=== PATIENT | female | born 1990 | race Caucasian/White ===

== ENCOUNTER → 2018-06-08 12:07 | Outpatient (CLI) | payer OTHER, MEDICAID, SELFPAY ==
[2018-06-08 12:40] LABS: Appearance Urine UA CLEAR; Bilirubin Urine UA NEGATIVE (NEGATIVE); Color Urine UA YELLOW; Glucose Urine UA NEGATIVE (Normal); Ketones Urine UA NEGATIVE (NEGATIVE); Leukocyte Esterase Urine UA NEGATIVE (NEGATIVE); Nitrite Urine UA NEGATIVE (Negative); Occult Blood Urine UA NEGATIVE (Negative); Protein Urine UA NEGATIVE (Negative); Specific Gravity Urine UA <=1.005 (1.000-1.035); Urobilinogen Urine UA 0.2 E.U./dL (0.2); pH Urine UA 6.5 (4.5-8.0)
[2018-06-08 12:42] LABS: Add Manual Diff / Slide Review NO; Basophils Percent Auto 0.6 % (0-2); Eosinophils Percent Auto 0.9 % (2-4); Hematocrit 38.3 % (36-46); Hemoglobin 13.2 g/dL (12.0-16.0); Lymphocytes Percent Auto 34.7 % (25-40); Mean Corpuscular HGB Conc 34.5 % (30-36); Mean Corpuscular Volume 87.2 fL (80-100); Monocytes Percent Auto 9.6 % (3-14); Neutrophils Absolute Auto 2400 /uL (1500-7000); Neutrophils Percent Auto 54.2 % (50-75); Platelet Count 215 X10^3/uL (150-400); Red Blood Cell Count 4.39 X10^6/uL (4.0-5.2); Red Cell Distribution Width 13.3 % (11.6-14.8); White Blood Cell Count 4.5 X10^3/uL (4.5-11.0)
[2018-06-08 13:22] LABS: Thyroid Stimulating Hormone 3.44 uIU/mL (0.47-4.68)
[2018-06-08 15:29] LABS: Hepatitis B Surface Antigen NEGATIVE s/c (NEGATIVE); Rubella Antibody IgG 36.5 IU/mL (>15)
[2018-06-08 15:45] LABS: HIV 1 and 2 Antibody NEGATIVE (NEGATIVE); Hep C Virus Ab w/Reflex Quant NEGATIVE s/c (NEGATIVE)
[2018-06-10 10:09] LABS: RPR Screen Nonreactive (Nonreactive)
[2018-06-10 13:45] LABS: HSV 2 IGG AB < 0.90 index (< 0.90)
[2018-06-11 14:47] LABS: Varicella IgG Antibody < 135.00 Index (< 135.00)
== END ==
PROVIDERS: Family Provider Family Medicine; PCP Family Medicine; Visit Provider Specialist
DX: Z34.81 Encounter for supervision of other normal pregnancy, first trimester (principal); E03.9 Hypothyroidism, unspecified
CPT/HCPCS: 36415; 80055; 81003; 84443; 86695; 86696; 86703; 86787; 86803; 86850; 86900; 86901; 87077; 87086

== ENCOUNTER 2018-07-05 20:20 | Emergency (ER) | payer OTHER, MEDICAID, SELFPAY ==
[2018-07-05 20:20] VITALS: TEMP 36.8
[2018-07-05 20:38] VITALS: BP 115/74; PULSE 97; RESP 19; O2SAT 100
--- NOTE | 2018-07-05 20:55 | ED_ITS ---
HPI - Chest Pain General Chief Complaint: Chest Pain Stated Complaint: CONGESTION, CHEST PAIN Time Seen by Provider: 07/05/18 20:40 Source: patient Limitations: no limitations History of Present Illness HPI narrative: Patient is a 28-year-old female who presents with of shortness of breath is ongoing for the last 2 weeks. She has chest pain only when she breathes. She has had coughing and body aches. She is currently 10 weeks . His she has had 1 episode of spotting a couple days ago no really abdominal pain or further spotting. She denies any abdominal pain nausea or vomiting. Her daughter has been sick as well. She did not get her influenza shot. MD complaint: chest pain Related Data Home Medications Medication Instructions Recorded Confirmed 1 tab PO DAILY 06/15/18 06/15/18 vitamin,calcium,xygmvbxu-ejyr-owpkm acid tablet Previous Rx's Medication Instructions Recorded levothyroxine 100 mcg tablet 100 mcg PO DAILY #60 tab 02/01/18 Allergies Allergy/AdvReac Type Severity Reaction Status Date / Time No Known Drug Allergies Allergy Unverified 06/15/18 17:45 Review of Systems Review of Systems ROS Unobtainable: All systems reviewed & are unremarkable except as noted in HPI and below Constitutional Reports body ache(s), Reports chills and Reports fever(s) Cardiovascular Reports chest pain ( Only when she coughs), Denies syncope, Denies lightheadedness and Reports dyspnea Respiratory Reports chest congestion, Reports cough, Reports pain with cough and Reports dyspnea Gastrointestinal Gastrointestinal: Denies abdominal pain, Denies change in bowel habits, Denies diarrhea, Denies nausea and Denies vomiting Integumentary/Breasts Denies pruritus, Denies erythema, Denies rash and Denies wounds Neurologic Denies syncope PFS Medical History Hypothyroid (Acute) Family History Father WPW (Edtan-Jkxwnuwtf-Hfype syndrome) Social History Smoking Status: Never smoker Exam Initial Vital Signs Initial Vital Signs: Vital Signs Temperature 98.3 F 07/05/18 20:20 GENERAL: Well-appearing, well-nourished and in no acute distress. HEENT: Head atraumatic,EOMI, pupils reactive, CARDIOVASCULAR: Regular rate and rhythm without murmurs, rubs or gallops. RESPIRATORY: Breath sounds equal bilaterally, no wheezes rales or rhonchi. ABDOMEN: Soft, nontender. Normoactive bowel sounds all 4 quadrants. No guarding or rebound. EXTREMITIES: Normal range of motion, no clubbing or edema. Neurovascularly intact NEUROLOGICAL: Alert and oriented x4.Normal gait and speech. SKIN: Warm, dry, no laceration, no petechiae, no rashes or lesions. Course Orders Ordered: ED Orders 07/05/18 21:03 Influenza A and B by PCR Rapid Stat Vital Signs - 8 hr 07/05/18 20:20 07/05/18 20:38 07/05/18 21:01 Temperature 98.3 F Pulse Rate 97 H 97 H Respiratory Rate 19 27 H Blood Pressure [Left Arm] 115/74 111/71 Pulse Oximetry 100 100 07/05/18 21:14 07/05/18 21:30 Temperature 98.3 F Pulse Rate 97 H 92 H Respiratory Rate 27 H 16 Blood Pressure [Left Arm] 104/68 Pulse Oximetry 100 100 MDM - Chest Pain Lab Data Attestation: I reviewed the patient's lab results. Lab Results 07/05/18 Range/Units 21:03 Influenza A & B (PCR) Negative (Negative) ECG Data Attestation: I personally reviewed and interpreted this ECG as follows: Interpretation: normal sinus rhythm rate 85 incomplete right bundle-branch block no ST changes normal intervals no sign of WPW MDM Narrative Medical decision making narrative: patient was offered albuterol and chest x- ray however at this time declined. This is likely viral in upper respiratory. Lungs are clear I do not suspect any pneumonia. She really appears alert and oriented does not seem septic or toxic. Vitals are within normal limits. At this time recommend supportive care only. Discharge Plan Departure Patient Disposition: Home Clinical Impression: Upper respiratory infection Discharge Date/Time: 07/05/18 21:51 Interventions: ED Discharge Assessment Last Done: 07/05/18 21:51 Instructions: DI for Viral Upper Respiratory Infection -- Adult Activity Restrictions/Additional Instructions: *You have been diagnosed with upper respiratory infection *What to do: influenza is negative at this time, recommend Neti pot, hydrate, rest Tylenol as needed *Continue to take medications as directed *Follow up with your primary care provider in 2-3 days *Return to ER if you should have increased shortness of breath, chest pain, increased abdominal pain or vaginal bleeding or any new, worsening or concerning symptoms Prescriptions: No Action levothyroxine [Synthroid] 100 mcg tablet 100 mcg PO DAILY Qty: 60 RF: 1 prenat.vits,jillian,twq-whnf-qteil tablet 1 tab PO DAILY RF: 0 Referrals: Saumya Dickinson MD [Physician] - Farzad Ruvalcaba MD [Primary Care Provider] -
[2018-07-05 21:01] VITALS: BP 111/71; PULSE 97; RESP 27; O2SAT 100
[2018-07-05 21:14] VITALS: PULSE 97; RESP 27; TEMP 36.8; O2SAT 100
--- NOTE | 2018-07-05 21:19 | PC.NURSE ---
chest congestion and cough for two weeks and chest pain with coughing today, no pain at present. Pt 10wks denies vaginal bleeding.
[2018-07-05 21:28] LABS: Influenza A and B by PCR Rapid Negative (Negative)
[2018-07-05 21:30] VITALS: BP 104/68; PULSE 92; RESP 16; O2SAT 100
== END 2018-07-05 21:51 | disposition home or self-care (01) ==
PROVIDERS: Emergency Provider Emergency Medicine; Family Provider Family Medicine; PCP Family Medicine
DX: J06.9 Acute upper respiratory infection, unspecified (principal)
CPT/HCPCS: 87400; 93005; 93010; 99283; 99284

== ENCOUNTER → 2018-08-17 15:29 | Outpatient (CLI) | payer OTHER, MEDICAID, SELFPAY ==
[2018-08-17 16:55] LABS: Free T4, Direct Thyroxine 0.93 ng/dL (0.78-2.19)
[2018-08-17 17:09] LABS: Thyroid Stimulating Hormone 1.84 uIU/mL (0.47-4.68)
[2018-08-22 11:01] LABS: AFP, Serum 39.6 ng/mL; Calc Gestational Age 15.9; Cigarette Smoker N; Donated Egg NOT GIVEN; Donor Egg Age NOT GIVEN; Estriol, Free 0.95 ng/mL; Inhibin A, Dimeric 107 pg/mL; Maternal Ethnicity NOT GIVEN; Maternal Weight 163 lbs; Number of Fetuses NOT GIVEN; Previous Pregnancy Down Syndro N; hCG, MoM 0.72; hCG, Serum 24.4 IU/mL
== END ==
PROVIDERS: PCP Family Medicine; Visit Provider Specialist
DX: Z34.82 Encounter for supervision of other normal pregnancy, second trimester (principal); Z3A.16 16 weeks gestation of pregnancy; E06.9 Thyroiditis, unspecified
CPT/HCPCS: 36415; 82105; 82677; 84439; 84443; 84702; 86336

== ENCOUNTER → 2018-09-16 15:05 | Outpatient (CLI) | payer OTHER, MEDICAID, SELFPAY ==
--- NOTE | 2018-09-16 15:11 | DI.US.S_ITS ---
PROCEDURE: US OB >= 14 WEEKS FETUS INDICATIONS: anatomic survey OUTSIDE/PRIOR DATING DATA: Last menstrual period (LMP): None. LMP-based estimated date of delivery (RENETTA): None. First dating scan (date and location): 06/22/18. Estimated date of delivery (RENETTA) from first dating scan: 02/01/19. TECHNIQUE: Real-time scanning was performed of the fetus, with image documentation and biometric measurements. Endovaginal scanning: Not performed COMPARISON: [facility], , OB >= 14 WEEKS FETUS, 06/22/2018, 14:53. FINDINGS: General: A single living intrauterine gestation is present. Presentation: Vertex Placenta: Placental position is anterior, without previa. The Amniotic fluid index: 15.3 cm, normal range is 5-24 cm. heart rate: 150 beats per minute. Maternal cervical canal: 3.3 cm long. Normal lower limit is 2.5 cm. biometrics: Biparietal diameter: 5.0 cm, 21 week 2 days Head circumference: 19.2 cm, 21 weeks 3 days Abdominal circumference: 17.0 cm, 22 weeks zero days Femur length: 3.5 cm, 21 weeks one day Estimated gestational age from initial scan: 20 week 2 day Composite gestational age from present scan: 21 week 3 days Estimated weight and percentile: 432 g, 97% Measurement variability for biometric dating: +/- 7 days from 14 weeks to 15 weeks 6 days gestation, +/- 10 days from 16 weeks to 21 weeks 6 days gestation, +/- 2 weeks from 22 weeks to 27 weeks 6 days gestation, +/- 3 weeks for 28 weeks gestation or later. weight reference: 4500 g or EFW >90/95% is considered macrosomia or large for gestational age. EFW <10% is small for gestational age. EFW 5% or less is considered intra-uterine growth restriction. Anatomic survey: Neuro: Ventricles are non-dilated at less than 10 mm. Cisterna magna is normal at 3-11 mm. Cerebellum is normal in size and morphology. Nuchal skin fold: Normal at less than 6 mm between 14-21 weeks gestational age. Face: Nose and lips, facial profile are normal. Spine: No evidence for spina bifida. Heart: 4-chambered heart is present, with normal ventricular outflow tracts. Diaphragm: Diaphragm is intact. Stomach: Left-sided stomach is present. Kidneys: No hydronephrosis. Normal is less than 5 mm in 2nd trimester, less than 7 mm in 3rd trimester. Cord: 3-vessel cord has orthotopic insertion. Bladder: Normal in size. Extremities: All 4 extremities identified. IMPRESSION: 1. Single live intrauterine with fetus in vertex presentation. heart rate is 150 beats per minute. Estimated gestational age based on current study is 21 weeks 3 days. Estimated gestational age based on the previous study as 20 week 2 day. 2. Normal anatomic survey. Dictated by: Huber Albarado M.D. on 09/16/2018 at 16:38 Approved by: Huber Albarado M.D. on 09/16/2018 at 16:41
== END ==
PROVIDERS: PCP Family Medicine; Visit Provider Family Medicine
DX: Z34.82 Encounter for supervision of other normal pregnancy, second trimester (principal); Z3A.21 21 weeks gestation of pregnancy
CPT/HCPCS: 76811

== ENCOUNTER → 2018-10-20 16:40 | Outpatient (CLI) | payer OTHER, MEDICAID, SELFPAY ==
[2018-10-20 18:23] LABS: Hemoglobin 10.6 g/dL (12.0-16.0)
[2018-10-24 07:40] LABS: GTT (PREG) 1 Hour PP 50gm Dose 104 mg/dL (76-139)
== END ==
PROVIDERS: PCP Family Medicine; Visit Provider Specialist
DX: Z34.02 Encounter for supervision of normal first pregnancy, second trimester (principal); Z3A.26 26 weeks gestation of pregnancy
CPT/HCPCS: 36415; 82950; 85014; 85018

== ENCOUNTER → 2018-11-10 11:36 | Outpatient (CLI) | payer OTHER, MEDICAID, SELFPAY | PROVIDERS: PCP Family Medicine; Visit Provider Specialist | DX: O26.899 Other specified pregnancy related conditions, unspecified trimester (principal); Z67.91 Unspecified blood type, Rh negative | CPT/HCPCS: 36415; 86850 ==

== ENCOUNTER → 2019-01-13 15:59 | Outpatient (CLI) | payer OTHER, MEDICAID, SELFPAY ==
[2019-01-14 13:06] LABS: Strep Grp B PCR NEG for Grp B Strep
== END ==
PROVIDERS: PCP Family Medicine; Visit Provider Specialist
DX: Z34.83 Encounter for supervision of other normal pregnancy, third trimester (principal); Z3A.37 37 weeks gestation of pregnancy
CPT/HCPCS: 87653

== ENCOUNTER 2019-01-27 08:50 | Outpatient (CLI) | payer OTHER, MEDICAID, SELFPAY | END 2019-01-27 09:40 | disposition home or self-care (01) | LOC: LABOR 09:50 → OB 01-31 09:32 | PROVIDERS: PCP Family Medicine; Visit Provider Specialist | DX: O36.8130 Decreased fetal movements, third trimester, not applicable or unspecified (principal); Z3A.38 38 weeks gestation of pregnancy | CPT/HCPCS: 59025; G0378; G0379 ==

== ENCOUNTER 2019-01-27 11:21 | Inpatient (IN) | payer OTHER, MEDICAID, SELFPAY ==
--- NOTE | 2019-01-27 11:50 | PM.OBHP.1 ---
OB HPI Date/Time Date of admission: 01/27/19 Date Patient Seen: 01/27/19 Time Patient Seen: 11:53 History of Present Condition Chief complaint: Induction : 4 Para: 2 Estimated Date of Delivery: 02/02/19 Estimated Gestational Age (weeks): 39 Narrative: Jenny Leblanc is a 28 year old female admitted for induction for LGA at term Indications Indication for induction OB: other (LGA infant at term with favorable cervix) History of Present care: good care, initiated at week # (7), number of visits (13) and pounds weight gain (34) Dating criteria: LMP confirmed by 1st trimester US Ultrasounds: normal mid trimester US Obstetrical complications: none Medical complications: none Preadmission Labs Blood type: A (-) negative -: Antibody screen: negative, GBS status: negative, HBsAG: negative, HIV: negative, HSV 1: positive, HSV 2: negative and RPR/VDLR: negative -: Chlamydia screen: not detected and Gonorrhea screen: not detected -: Rubella: immune and Varicella: not immune HCAB: negative PAP: Normal Quad screen: Normal 1 hr GTT: 104 Prior (ies) History: 07/05/14 41 weeks female 9 lb 6 oz 11/05/2015 40 weeks female 8 lb Evaluation Evaluation Baseline heart rate: 130 Variability: Moderate (11-25) monitor accelerations: Present monitor decelerations: Absent Contraction Frequency (minutes): 0 Category of Tracing: I Cervical dilation (cm): 3 Cervical effacement (%): 80 station: -2 [facility] Medical History (Updated 01/27/19 @ 11:57 by Saumya Dickinson MD) Migraines (Chronic) Hypothyroid (Acute) Surgical History (Updated 01/27/19 @ 11:57 by Saumya Dickinson MD) Hx of appendectomy (Inactive) Family History (Updated 07/06/18 @ 02:25 by Any Chawla DO) Father WPW (Yzbrz-Dktapcobu-Etgdp syndrome) Social History Smoking Status: Never smoker Social History Smoking Status: Never smoker Meds Home Medications Medication Instructions Recorded Confirmed Type 1 tab PO DAILY 06/15/18 07/09/18 History vitamin,calcium,ajqidqot-gtmg-vqxaf acid tablet Double Electric Breast Pump #1 each 11/23/18 11/23/18 Rx levothyroxine 100 mcg tablet 100 mcg PO DAILY #60 tab 12/22/18 Rx Allergies Allergy/AdvReac Type Severity Reaction Status Date / Time No Known Drug Allergies Allergy Verified 07/09/18 12:10 Review of Systems Review of Systems Patient has had good movement. No rupture membranes. No signs or symptoms of preeclampsia. All systems reviewed & are unremarkable except as noted in HPI and below Exam Vital Signs (past 8 hours): Blood pressure 110/62, pulse of 84 Narrative Exam Narrative: HEENT exam within normal limits. Lungs are clear to auscultation and percussion. Heart is regular rate and rhythm no S3-S4 or murmurs. Abdomen is gravid. Extremities with trace edema and nontender. Objective Labs Result Diagrams: 01/27/19 11:50 Assessment and Plan Assessment and Plan Assessment and Plan narrative: 39 week gestation with LGA infant and favorable cervix for a AROM and Pitocin induction.
--- NOTE | 2019-01-27 11:58 | P.HPOB_ITS ---
OB HPI Date/Time Date of admission: 01/27/19 Date Patient Seen: 01/27/19 Time Patient Seen: 11:53 History of Present Condition Chief complaint: Induction : 4 Para: 2 Estimated Date of Delivery: 02/02/19 Estimated Gestational Age (weeks): 39 Narrative: Jenny Leblanc is a 28 year old female admitted for induction for LGA at term Indications Indication for induction OB: other (LGA infant at term with favorable cervix) History of Present care: good care, initiated at week # (7), number of visits (13) and pounds weight gain (34) Dating criteria: LMP confirmed by 1st trimester US Ultrasounds: normal mid trimester US Obstetrical complications: none Medical complications: none Preadmission Labs Blood type: A (-) negative -: Antibody screen: negative, GBS status: negative, HBsAG: negative, HIV: negative, HSV 1: positive, HSV 2: negative and RPR/VDLR: negative -: Chlamydia screen: not detected and Gonorrhea screen: not detected -: Rubella: immune and Varicella: not immune HCAB: negative PAP: Normal Quad screen: Normal 1 hr GTT: 104 Prior (ies) History: 07/05/14 41 weeks female 9 lb 6 oz 11/05/2015 40 weeks female 8 lb Evaluation Evaluation Baseline heart rate: 130 Variability: Moderate (11-25) monitor accelerations: Present monitor decelerations: Absent Contraction Frequency (minutes): 0 Category of Tracing: I Cervical dilation (cm): 3 Cervical effacement (%): 80 station: -2 [facility] [place] Medical History (Updated 01/27/19 @ 11:57 by Saumya Dickinson MD) Migraines (Chronic) Hypothyroid (Acute) Surgical History (Updated 01/27/19 @ 11:57 by Saumya Dickinson MD) Hx of appendectomy (Inactive) Family History (Updated 07/06/18 @ 02:25 by Any Chawla DO) Father WPW (Qkgev-Irfqlklvp-Wuddl syndrome) Social History Smoking Status: Never smoker Social History Smoking Status: Never smoker Meds Home Medications Medication Instructions Recorded Confirmed Type 1 tab PO DAILY 06/15/18 07/09/18 History vitamin,calcium,hxwbyado-dwru-nralz acid tablet Double Electric Breast Pump #1 each 11/23/18 11/23/18 Rx levothyroxine 100 mcg tablet 100 mcg PO DAILY #60 tab 12/22/18 Rx Allergies Allergy/AdvReac Type Severity Reaction Status Date / Time No Known Drug Allergies Allergy Verified 07/09/18 12:10 Review of Systems Review of Systems Patient has had good movement. No rupture membranes. No signs or symptoms of preeclampsia. All systems reviewed & are unremarkable except as noted in HPI and below Exam Vital Signs (past 8 hours): Blood pressure 110/62, pulse of 84 Narrative Exam Narrative: HEENT exam within normal limits. Lungs are clear to auscultation and percussion. Heart is regular rate and rhythm no S3-S4 or murmurs. Abdomen is gravid. Extremities with trace edema and nontender. Objective Labs Result Diagrams: 01/27/19 11:50 Assessment and Plan Assessment and Plan Assessment and Plan narrative: 39 week gestation with LGA infant and favorable cervix for a AROM and Pitocin induction.
[2019-01-27] MEDS: LACTATED RINGERS 1,000 ML 100 ML IV (12:00)
[2019-01-27] MEDS: OXYTOCIN PREMIX 30 UNIT/500 ML PLAST..BAG IV (12:05)
[2019-01-27 12:16] LABS: Add Manual Diff / Slide Review NO; Basophils Absolute Auto 0 /uL (0-100); Basophils Percent Auto 0.4 % (0-2); Eosinophils Absolute Auto 0 /uL (0-450); Eosinophils Percent Auto 0.3 % (2-4); Hematocrit 36.9 % (36-46); Hemoglobin 12.7 g/dL (12.0-16.0); Lymphocytes Absolute Auto 1400 /uL (1100-4500); Lymphocytes Percent Auto 18.1 % (25-40); Mean Corpuscular HGB Conc 34.5 % (30-36); Mean Corpuscular Hemoglobin 31.3 PG (26-34); Mean Corpuscular Volume 90.9 fL (80-100); Monocytes Absolute Auto 600 /uL (0-900); Monocytes Percent Auto 7.9 % (3-14); Neutrophils Absolute Auto 5900 /uL (1500-7000); Neutrophils Percent Auto 73.3 % (50-75); Platelet Count 146 X10^3/uL (150-400); Red Blood Cell Count 4.06 X10^6/uL (4.0-5.2); Red Cell Distribution Width 17.3 % (11.6-14.8)
[2019-01-27 13:09] VITALS: BP 110/62
--- NOTE | 2019-01-27 19:14 | PM.OBPRVD ---
Events: Labor Induction Delivery date: 01/27/19 Induction method: per pitocin protocol Delivery augmentation: rupture of membranes Delivery monitor: external FHT and external uterine Route of delivery: L&D Laceration Description: None Estimated blood loss (mL): 200 Anesthesia type: Epidural Narrative: Patient was admitted for Pitocin and AROM induction for term with LGA baby and favorable cervix. She had Pitocin begun followed by AROM for clear fluid. She received an epidural catheter for pain control. heart tones category 1 to category 2 throughout labor. Patient had a spontaneous vaginal delivery. Infant was placed on maternal abdomen. After the cord stopped pulsating the cord was clamped, cut, and cord bloods obtained. The placenta delivered spontaneously, intact, with 3 vessels. There were no cervical, vaginal, or perineal tears. Both and mother doing well. [place] Baby 1: Infant gender: Male Presentation: vertex position: Right Occiput Anterior Placenta delivery description: Spontaneous cord vessel description: 3 Vessels score (1 min): 9 score (5 min): 9 Plan for aftercare: Routine post vaginal delivery
[2019-01-27] MEDS: IBUPROFEN 600 MG TABLET PO (21:59)
[2019-01-27] MEDS: HYDROCODONE/ACET 5/325 TABLET 2 TAB PO (22:07)
[2019-01-27] MEDS: LANOLIN OINT 7 GM 1 APPLIC TOP (22:48)
[2019-01-28 05:42] LABS: Hematocrit 34.8 % (36-46); Hemoglobin 12.1 g/dL (12.0-16.0)
[2019-01-28] MEDS: IBUPROFEN 600 MG TABLET PO ×3 (06:59→19:03)
[2019-01-28] MEDS: HYDROCODONE/ACET 5/325 TABLET 2 TAB PO ×4 (07:00→20:11)
[2019-01-28] MEDS: LEVOTHYROXINE 100 MCG TABLET PO (09:20)
[2019-01-28] MEDS: DOCUSATE 250 MG CAPSULE PO (09:20)
[2019-01-28] MEDS: RHO(D) IMMUNE GLOBULIN 1,500 UNIT SYRINGE 1500 UNIT IM (09:20)
--- NOTE | 2019-01-28 09:47 | P.PNOB_ITS ---
Subjective - OB Patient comments: pain well controlled baby status: doing well feeding status: exclusively breast feeding Date Patient Seen: 01/28/19 Time Patient Seen: 09:47 Interval history: Patient is day 1. She has moderate crampy pain that is been relieved with Vicodin. Mild lochia. Extremities without edema and nontender. Exam Vital Signs (past 8 hours): Temperature 97.8?, blood pressure 120/77, pulse 70 Narrative Exam Narrative: Abdomen is soft, nontender. Uterus is firm, at U, nontender. Mild lochia. Extremities without edema and nontender. Patient is Rh negative and baby Rh positive so she received RhoGAM. Objective Labs Result Diagrams: 01/28/19 05:25 Labs: Laboratory Results - last 24 hr 01/27/19 01/27/19 01/28/19 11:50 11:50 05:25 WBC 8.0 RBC 4.06 Hgb 12.7 Hct 36.9 MCV 90.9 MCH 31.3 MCHC 34.5 RDW 17.3 H Plt Count 146 L Neut % (Auto) 73.3 Lymph % (Auto) 18.1 L [place] % (Auto) 7.9 Eos % (Auto) 0.3 L Baso % (Auto) 0.4 Neut # (Auto) 5900 Lymph # (Auto) 1400 [place] # (Auto) 600 Eos # (Auto) 0 Baso # (Auto) 0 Blood Type A Negative Antibody Screen Negative Maternal Bleed Negative 01/28/19 05:25 WBC RBC Hgb 12.1 Hct 34.8 L MCV MCH MCHC RDW Plt Count Neut % (Auto) Lymph % (Auto) [place] % (Auto) Eos % (Auto) Baso % (Auto) Neut # (Auto) Lymph # (Auto) [place] # (Auto) Eos # (Auto) Baso # (Auto) Blood Type Antibody Screen Maternal Bleed Assessment & Plan Plan day: 1 plan OB: routine care Time Spent With Patient Total time spent is greater than 50% in coordination of care (as documented) at patient's floor/unit and/or counseling patient: less than 15 minutes
[2019-01-29] MEDS: HYDROCODONE/ACET 5/325 TABLET 2 TAB PO ×4 (00:13→12:23)
[2019-01-29] MEDS: IBUPROFEN 600 MG TABLET PO ×3 (01:01→12:22)
[2019-01-29] MEDS: DOCUSATE 250 MG CAPSULE PO (08:47)
[2019-01-29] MEDS: LEVOTHYROXINE 100 MCG TABLET PO (08:47)
--- NOTE | 2019-01-29 09:14 | PM.OBDS.1 ---
Discharge Providers Date of admission: 01/27/19 11:21 Discharge Date: 01/29/19 Primary care physician: Farzad Ruvalcaba MD Consults: 01/27/19 20:44 Consult to [employer] Routine Comment: Discharge provider: Saumya Dickinson MD Summary Date Patient Seen: 01/29/19 Time Patient Seen: 09:15 Procedures: Pitocin induction, epidural catheter, vaginal delivery. Hospital Course: Patient was admitted for induction for LGA and favorable cervix. She was started on Pitocin and was AROM for clear fluid. She received an epidural catheter for pain control. She had a spontaneous vaginal delivery without a tear. Patient and baby did well . She is breast-feeding with some soreness. She is urinating and ambulating well. Patient's blood pressure is 113/64, pulse 73, temperature 97.8? Patient's abdomen is soft, nontender. Uterus is firm, at U, nontender. Mild lochia. Extremities without edema and nontender. Patient received RhoGAM, she was rubella immune and had received the Tdap in the 3rd trimester. Peripartum Data Infant Delivery Method: Natural Vaginal Laceration description: None Procedures: Pitocin induction, epidural catheter, spontaneous vaginal delivery complications: none [place] 1: Gender: Male Disposition of : home Discharge Diagnosis (1) Vaginal delivery: Status: Acute (2) Hypothyroid: Status: Chronic Status at Discharge Cognitive/behavioral status at discharge: oriented Functional status at discharge: independent ambulation Overall status at discharge: patient is progressing back to baseline Time Spent with Patient Total time spent providing and/or coordinating discharge services: Less than 30 minutes Objective Labs Result Diagrams: 01/28/19 05:25 Discharge Plan Discharge Plan Patient Disposition: Home Discharge Med Rec/Prescriptions Prescriptions: New hydrocodone-acetaminophen 5-325 mg Tablet 1 tab PO Q4HR PRN (Reason: Pain, Severe (7-10)) Qty: 20 RF: 0 ibuprofen 600 mg Tablet 600 mg PO Q6HR PRN (Reason: Pain, Mild (1-3)) Qty: 30 RF: 0 docusate sodium 250 mg Capsule 250 mg PO DAILY Qty: 10 RF: 0 Continued levothyroxine [Synthroid] 100 mcg tablet 100 mcg PO DAILY Qty: 60 RF: 5 prenat.vits,jillian,lep-ayqo-urqol tablet 1 tab PO DAILY RF: 0 Double Electric Breast Pump .ROUTE .MEDSUPPLY Qty: 1 RF: 0 Follow up/Referrals: Saumya Dickinson MD [Physician] - 1 Month Provider Discharge Instructions Diet: Regular Activity: Nothing in vagina for 4 weeks Skin/Wound/Dressing Care Report to your healthcare provider any signs of infection, such as:: chills, fever and increased pain Visit Report/Discharge Packet Stand Alone Forms: Discharge: Care Discharge Data Primary Care Provider: Farzad Ruvalcaba Attending Provider: Saumya Dickinson Admit Date/Time: 01/27/19 11:21
[2019-01-29 10:32] VITALS: BP 110/62; PULSE 73; RESP 17; TEMP 36.6
== END 2019-01-29 13:30 | disposition home or self-care (01) | DRG 807 ==
PROVIDERS: Admitting Provider Specialist; PCP Family Medicine; Visit Provider Specialist
DX: O36.63X0 Maternal care for excessive fetal growth, third trimester, not applicable or unspecified (principal); Z37.0 Single live birth; Z3A.39 39 weeks gestation of pregnancy
CPT/HCPCS: 01967; 36415; 59025; 59050; 59400; 85014; 85018; 85025; 85461; 86850; 86900; 86901; G0378; G0379; J2590; J2790

== ENCOUNTER 2019-06-07 17:45 | Emergency (ER) | payer OTHER, SELFPAY ==
[2019-06-07 17:51] VITALS: BP 139/89; PULSE 77; RESP 16; O2SAT 99
[2019-06-07 18:10] LABS: Add Manual Diff / Slide Review NO; Basophils Absolute Auto 0 /uL (0-100); Basophils Percent Auto 0.8 % (0-2); Eosinophils Absolute Auto 300 /uL (0-450); Eosinophils Percent Auto 5.2 % (2-4); Hematocrit 39.8 % (36-46); Hemoglobin 13.7 g/dL (12.0-16.0); Lymphocytes Absolute Auto 1900 /uL (1100-4500); Lymphocytes Percent Auto 30.9 % (25-40); Mean Corpuscular HGB Conc 34.5 % (30-36); Mean Corpuscular Hemoglobin 30.8 PG (26-34); Monocytes Absolute Auto 400 /uL (0-900); Monocytes Percent Auto 6.5 % (3-14); Neutrophils Absolute Auto 3400 /uL (1500-7000); Neutrophils Percent Auto 56.6 % (50-75); Platelet Count 222 X10^3/uL (150-400); Red Blood Cell Count 4.47 X10^6/uL (4.0-5.2); Red Cell Distribution Width 12.7 % (11.6-14.8)
--- NOTE | 2019-06-07 18:10 | DI.US.S_ITS ---
PROCEDURE: US ABDOMEN LIMITED INDICATIONS: RUQ PAIN TECHNIQUE: Real-time focused scanning was performed of the abdomen, with image documentation. COMPARISON: None. FINDINGS: Gallbladder is sonographically normal. No gallstones. No gallbladder wall thickening. No pericholecystic fluid. No sonographic Phillips sign. Biliary tree is nondilated. Common bile duct measures 2.7 mm. Pancreas is sonographically normal. IMPRESSION: No sonographic evidence of cholelithiasis or cholecystitis. If there is continued clinical concern for cholecystitis, then nuclear medicine HIDA scan should be considered for further evaluation. Dictated by: Alena Manuel MD, PhD on 06/07/2019 at 20:36 Approved by: Alena Manuel MD, PhD on 06/07/2019 at 20:38
[2019-06-07] MEDS: SODIUM CHLORIDE 0.9% 1,000 ML 1000 ML IV (18:14)
[2019-06-07] MEDS: ONDANSETRON 4 MG/2 ML INJ IV (18:14)
[2019-06-07 18:18] LABS: Alanine Aminotransferase 13 IU/L (<35); Albumin 4.7 g/dL (3.5-5.0); Albumin Globulin Ratio 1.5 (1.0-2.8); Alkaline Phosphatase 60 U/L (38-126); Amylase 62 U/L (30-110); Aspartate Aminotransferase 21 IU/L (14-36); BUN Creatinine Ratio 18.6 (6-22); Bilirubin Total 0.4 mg/dL (0.2-1.3); Blood Urea Nitrogen 13 mg/dL (7-17); Calcium 10.1 mg/dL (8.4-10.2); Carbon Dioxide 28 mmol/L (22-32); Chloride 100 mmol/L (98-107); Estimated Glomerular Filt Rate > 60.0 mL/min (>60); Globulin 3.2 g/dL (1.7-4.1); Glucose 106 mg/dL (70-100); HEMOLYSIS < 15 (0-50); Lipase 90 U/L (23-300); Potassium 3.7 mmol/L (3.4-5.1); Sodium 138 mmol/L (137-145); Total Protein 7.9 g/dL (6.3-8.2)
--- NOTE | 2019-06-07 20:14 | ED_ITS ---
HPI - Abdominal Pain <ANTON Victoria- - Last Filed: 06/07/19 20:55> General Chief Complaint: Abdominal Pain Stated Complaint: upper middle abdominal pain Time Seen by Provider: 06/07/19 17:48 Source: patient Mode of arrival: Ambulatory Limitations: no limitations History of Present Illness HPI narrative: The patient is a 29-year-old female nonsmoker with history of hypothyroidism who presents with a chief complaint of upper abdominal pain on the right side since dinner last night. She states she has had decreased appetite today. She denies any fevers, complains of nausea no vomiting or diarrhea. She is concerned about her gallbladder. She has a history of appendectomy, hypothyroid, is 4 months . She is not breast-feeding at this time. She has taken apple cider vinegar and ibuprofen for the pain, but this did not help. She states all that she has today is headache she has taken a small meal. Related Data Home Medications Medication Instructions Recorded Confirmed prenat.vits,jillian,[id number] 1 tab PO DAILY 06/15/18 03/12/19 Previous Rx's Medication Instructions Recorded Double Electric Breast Pump #1 each 11/23/18 levothyroxine 100 mcg tablet 100 mcg PO DAILY #60 tab 12/22/18 ondansetron 4 mg PO Q6H PRN #14 tab 06/07/19 Allergies Allergy/AdvReac Type Severity Reaction Status Date / Time No Known Drug Allergies Allergy Verified 03/12/19 14:49 Review of Systems <MORGAN Victoria - Last Filed: 06/07/19 20:55> Review of Systems Narrative: GENERAL: Denies chills, fatigue, malaise, fever, sweats. HEENT: Denies sinus pain, ear pain, sore throat, difficulty swallowing, dizziness. RESPIRATORY: Denies dyspnea, cough, wheezing, hemoptysis, sputum. CARDIOVASCULAR: Denies chest pain, palpitations, orthopnea, edema, GASTROINTESTINAL: see HPI : Denies dysuria, frequency, incontinence, hematuria, urinary retention. MUSCULOSKELETAL: denies weakness, joint pain, or bony pain SKIN: Denies rash, skin lesions, or other NEUROLOGIC: Denies weakness, headache, numbness, change in speech, confusion, seizures, incoordination. PSYCHIATRIC: No concerning psychosocial issues. 12 point review of systems is negative except for those stated above Patient History <RADHA Victoria - Last Filed: 06/07/19 20:55> Medical History Hypothyroid (Acute) Migraines (Chronic) Vaginal delivery (Inactive 01/27/19) Surgical History Hx of appendectomy (Inactive) Family History Father WPW (Msqdv-Hmahiqjbq-Uvxnd syndrome) Social History Smoking Status: Never smoker Smoking Status: Never smoker Substance Use Type: does not use Exam <RADHA Victoria - Last Filed: 06/07/19 20:55> Narrative Exam Narrative: GENERAL: This is a well-nourished, well-developed patient, in no acute distress HEAD: Atraumatic. Normocephalic. No temporal or scalp tenderness. EYES: Pupils equal round and reactive. Extraocular motions intact. No scleral icterus. No injection or drainage. ENT: Nose without bleeding, purulent drainage or septal hematoma. Throat without erythema, tonsillar hypertrophy or exudate. Uvula midline. Airway patent. NECK: Trachea midline. No JVD or lymphadenopathy. Supple, nontender, no meningeal signs. CARDIOVASCULAR: Regular rate and rhythm RESPIRATORY: Clear to auscultation. Breath sounds equal bilaterally. No wheezes, rales, or rhonchi. No cough. No increased respiratory effort. No accessory muscle use. GASTROINTESTINAL: Abdomen soft, diffuse tenderness right upper quadrant palpation, nondistended. No hepato-splenomegaly, or palpable masses. No guarding. Positive Phillips sign. EXTREMITIES: No clubbing, cyanosis, or edema. No joint tenderness, effusion, or edema noted. BACK: Nontender without deformity or crepitance. No flank tenderness. NEURO: AOx3. Stable gait SKIN: No rash or erythema on visible skin Initial Vital Signs Initial Vital Signs: Vital Signs Pulse Rate 77 06/07/19 17:51 Respiratory Rate 16 06/07/19 17:51 Blood Pressure 139/89 06/07/19 17:51 Pulse Oximetry 99 06/07/19 17:51 <David Portillo DO - Last Filed: 06/07/19 23:38> Initial Vital Signs Initial Vital Signs: Vital Signs Pulse Rate 77 06/07/19 17:51 Respiratory Rate 16 06/07/19 17:51 Blood Pressure 139/89 06/07/19 17:51 Pulse Oximetry 99 06/07/19 17:51 Course <ANTON Victoria-BC - Last Filed: 06/07/19 20:55> Orders Ordered: ED Orders 06/07/19 17:52 Amylase Stat Complete Blood Count AUTO DIFF Stat Comprehensive Metabolic Panel Stat Lipase Stat 06/07/19 18:10 US abdomen limited Stat Discontinued Medications Sodium Chloride (Normal Saline 0.9%) 1,000 mls @ 1,000 mls/hr IV BOLUS ONE Stop: 06/07/19 18:55 Last Infusion: 06/07/19 19:40 Dose: 0 mls/hr Documented by: Admin: 06/07/19 18:14 Dose: 1,000 mls/hr Documented by: EDWIGE Ondansetron HCl (Zofran) 4 mg IV NOW ONE Stop: 06/07/19 17:57 Last Admin: 06/07/19 18:14 Dose: 4 mg Documented by: CSYARELISLE Ondansetron HCl (Zofran Odt Prepack) 1 bottle MIS SEEINSTR ONE Stop: 06/07/19 20:52 Last Admin: 06/07/19 21:01 Dose: 1 bottle Documented by: DASH Vital Signs Vital signs: Vital Signs - 8 hr 06/07/19 17:51 06/07/19 21:06 Pulse Rate 77 71 Respiratory Rate 16 14 Blood Pressure 139/89 112/70 Pulse Oximetry 99 99 <David Portillo DO - Last Filed: 06/07/19 23:38> Orders Ordered: ED Orders 06/07/19 17:52 Amylase Stat Complete Blood Count AUTO DIFF Stat Comprehensive Metabolic Panel Stat Lipase Stat 06/07/19 18:10 US abdomen limited Stat Discontinued Medications Sodium Chloride (Normal Saline 0.9%) 1,000 mls @ 1,000 mls/hr IV BOLUS ONE Stop: 06/07/19 18:55 Last Infusion: 06/07/19 19:40 Dose: 0 mls/hr Documented by: Admin: 06/07/19 18:14 Dose: 1,000 mls/hr Documented by: EDWIGE Ondansetron HCl (Zofran) 4 mg IV NOW ONE Stop: 06/07/19 17:57 Last Admin: 06/07/19 18:14 Dose: 4 mg Documented by: EDWIGE Ondansetron HCl (Zofran Odt Prepack) 1 bottle MISC SEEINSTR ONE Stop: 06/07/19 20:52 Last Admin: 06/07/19 21:01 Dose: 1 bottle Documented by: DASH Vital Signs Vital signs: Vital Signs - 8 hr 06/07/19 17:51 06/07/19 21:06 Pulse Rate 77 71 Respiratory Rate 16 14 Blood Pressure 139/89 112/70 Pulse Oximetry 99 99 MDM - Abdominal Pain <RADHA Victoria - Last Filed: 06/07/19 20:55> Lab Data Result diagrams: 06/07/19 17:52 06/07/19 17:52 Labs: Lab Results 06/07/19 06/07/19 Range/Units 17:52 17:52 WBC 6.0 (4.5-11.0) X10^3/uL RBC 4.47 (4.0-5.2) X10^6/uL Hgb 13.7 (12.0-16.0) g/dL Hct 39.8 (36-46) % MCV 89.0 (80-100) fL MCH 30.8 (26-34) PG MCHC 34.5 (30-36) % RDW 12.7 (11.6-14.8) % Plt Count 222 (150-400) X10^3/uL Neut % (Auto) 56.6 (50-75) % Lymph % (Auto) 30.9 (25-40) % Tillman % (Auto) 6.5 (3-14) % Eos % (Auto) 5.2 H (2-4) % Baso % (Auto) 0.8 (0-2) % Neut # (Auto) 3400 (9941-2350) /uL Lymph # (Auto) 1900 (7692-5008) /uL [place] # (Auto) 400 (0-900) /uL Eos # (Auto) 300 (0-450) /uL Baso # (Auto) 0 (0-100) /uL Sodium 138 (137-145) mmol/L Potassium 3.7 (3.4-5.1) mmol/L Chloride 100 (98-107) mmol/L Carbon Dioxide 28 (22-32) mmol/L BUN 13 (7-17) mg/dL Creatinine 0.70 (0.52-1.04) mg/dL Estimated GFR > 60.0 (>60) mL/min BUN/Creatinine Ratio 18.6 (6-22) Glucose 106 H (70-100) mg/dL Calcium 10.1 (8.4-10.2) mg/dL Total Bilirubin 0.4 (0.2-1.3) mg/dL AST 21 (14-36) IU/L ALT 13 (<35) IU/L Alkaline Phosphatase 60 (38-126) U/L Total Protein 7.9 (6.3-8.2) g/dL Albumin 4.7 (3.5-5.0) g/dL Globulin 3.2 (1.7-4.1) g/dL Albumin/Globulin Ratio 1.5 (1.0-2.8) Amylase 62 (30-110) U/L Lipase 90 (23-300) U/L Point of care testing: Urine Dip Bedside Urine Glucose Negative Bedside Urine Bilirubin - Negative Bedside Urine Ketone - Negative Urine Specific Metcalf 1.015 Bedside Urine Occult Blood - Negative Bedside Urine pH 6.0 Bedside Urine Protein - Negative Bedside Urine Urobilinogen - Negative Bedside Urine Nitrite - Negative Bedside Urine Leukocytes - Negative Esterase Imaging Data US - abdomen: Radiologist's Impression: [address] [address] Ultrasound Report Signed Patient: Jenny Leblanc RMR#: [id number] : 1990Acct:[id number] Age/Sex: 29 / FDate of Service: 06/07/19 Loc: ED Accession Number: [id number] Procedure: US abdomen limited Ordering Provider: Jerri Chanel-BC PROCEDURE: US ABDOMEN LIMITED INDICATIONS: RUQ PAIN TECHNIQUE: Real-time focused scanning was performed of the abdomen, with image documentation. COMPARISON: None. FINDINGS: Gallbladder is sonographically normal. No gallstones. No gallbladder wall thick ening. No pericholecystic fluid. No sonographic Phillips sign. Biliary tree is nondilated. Common bile duct measures 2.7 mm. Pancreas is sonographically normal. IMPRESSION: No sonographic evidence of cholelithiasis or cholecystitis. If there is continued clinical concern for cholecystitis, then nuclear medicine HIDA scan should be considered for further evaluation. Dictated by: Alena Manuel MD, PhD on 06/07/2019 at 20:36 Approved by: Alena Manuel MD, PhD on 06/07/2019 at 20:38 [facility] Narrative Medical decision making narrative: The patient is a 29 year female who presents with a chief complaint of right upper quadrant pain since the night after eating hardin. She states that this has happened several times after eating high fat meals including hardin, oil etcetera. The patient has no signs of systemic illness, is afebrile and has no leukocytosis on her lab work. Her lab work is reassuring as well. Ultrasound shows no sign of acute cholecystitis. She felt improved after a single dose of Zofran in the emergency department nerve pain improved. She does not want a pain medication prescription. I discussed at length dietary changes, decreasing fat her diet etcetera. Encouraged follow-up with primary care provider in the next few days. Discussed at length return precautions the emergency department including inability keep down fluids, abdominal pain with fever etc.. Patient has no questions or concerns upon discharge and states understanding of return precautions as well as follow-up care. <David Portillo, DO - Last Filed: 06/07/19 23:38> Lab Data Labs: Lab Results 06/07/19 06/07/19 Range/Units 17:52 17:52 WBC 6.0 (4.5-11.0) X10^3/uL RBC 4.47 (4.0-5.2) X10^6/uL Hgb 13.7 (12.0-16.0) g/dL Hct 39.8 (36-46) % MCV 89.0 (80-100) fL MCH 30.8 (26-34) PG MCHC 34.5 (30-36) % RDW 12.7 (11.6-14.8) % Plt Count 222 (150-400) X10^3/uL Neut % (Auto) 56.6 (50-75) % Lymph % (Auto) 30.9 (25-40) % Tillman % (Auto) 6.5 (3-14) % Eos % (Auto) 5.2 H (2-4) % Baso % (Auto) 0.8 (0-2) % Neut # (Auto) 3400 (6920-7784) /uL Lymph # (Auto) 1900 (0953-3190) /uL Tillman # (Auto) 400 (0-900) /uL Eos # (Auto) 300 (0-450) /uL Baso # (Auto) 0 (0-100) /uL Sodium 138 (137-145) mmol/L Potassium 3.7 (3.4-5.1) mmol/L Chloride 100 (98-107) mmol/L Carbon Dioxide 28 (22-32) mmol/L BUN 13 (7-17) mg/dL Creatinine 0.70 (0.52-1.04) mg/dL Estimated GFR > 60.0 (>60) mL/min BUN/Creatinine Ratio 18.6 (6-22) Glucose 106 H (70-100) mg/dL Calcium 10.1 (8.4-10.2) mg/dL Total Bilirubin 0.4 (0.2-1.3) mg/dL AST 21 (14-36) IU/L ALT 13 (<35) IU/L Alkaline Phosphatase 60 (38-126) U/L Total Protein 7.9 (6.3-8.2) g/dL Albumin 4.7 (3.5-5.0) g/dL Globulin 3.2 (1.7-4.1) g/dL Albumin/Globulin Ratio 1.5 (1.0-2.8) Amylase 62 (30-110) U/L Lipase 90 (23-300) U/L Point of care testing: Urine Dip Bedside Urine Glucose Negative Bedside Urine Bilirubin - Negative Bedside Urine Ketone - Negative Urine Specific [place] 1.015 Bedside Urine Occult Blood - Negative Bedside Urine pH 6.0 Bedside Urine Protein - Negative Bedside Urine Urobilinogen - Negative Bedside Urine Nitrite - Negative Bedside Urine Leukocytes - Negative Esterase Discharge Plan Departure Patient Disposition: Home Clinical Impression: Biliary colic Abdominal pain Qualifiers: Abdominal location: right upper quadrant Qualified Code(s): R10.11 - Right upper quadrant pain Discharge Date/Time: 06/07/19 21:06 Instructions: DI for Abdominal Pain-Adult, DI for Biliary Colic Activity Restrictions/Additional Instructions: Today your ultrasound shows no acute signs of cholecystitis or gallbladder inf ection. I suggest decreasing fat in your diet monitoring for triggers Your lab work is reassuring as well. Please follow-up with primary care provider in the next few days I sent a prescription of Zofran to [facility]. Please come back to the emergency department for any acute concerns such as fever with abdominal pain inability keep down fluids etcetera Prescriptions: New ondansetron 4 mg tablet,disintegrating 4 mg PO Q6H PRN (Reason: nausea and vomiting) Qty: 14 RF: 0 No Action levothyroxine [Synthroid] 100 mcg tablet 100 mcg PO DAILY Qty: 60 RF: 5 prenat.vits,jillian,[id number] tablet 1 tab PO DAILY RF: 0 (DME) Double Electric Breast Pump 0 .ROUTE .MEDSUPPLY Qty: 1 RF: 0 Referrals: Farzad Ruvalcaba MD [Primary Care Provider] -
[2019-06-07] MEDS: ONDANSETRON 4 MG ODT PREPACK 1 BOTTLE MISC (21:01)
[2019-06-07 21:06] VITALS: BP 112/70; PULSE 71; RESP 14; O2SAT 99
== END 2019-06-07 21:06 | disposition home or self-care (01) ==
PROVIDERS: Emergency Provider Nurse Practitioner Family; PCP Family Medicine
DX: K80.50 Calculus of bile duct without cholangitis or cholecystitis without obstruction (principal)
CPT/HCPCS: 36415; 76705; 80053; 81003; 82150; 83690; 85025; 96361; 96374; 99284; J2405

== ENCOUNTER → 2019-10-05 13:59 | Outpatient (CLI) | payer OTHER, SELFPAY ==
[2019-10-05 15:52] LABS: TSH w/ Reflex to FT4 4.39 uIU/mL (0.47-4.68)
== END ==
PROVIDERS: PCP Family Medicine; Referring Provider Family Medicine; Visit Provider Family Medicine
DX: E03.9 Hypothyroidism, unspecified (principal)
CPT/HCPCS: 36415; 84443

== ENCOUNTER → 2019-11-02 12:56 | Outpatient (CLI) | payer OTHER, SELFPAY | PROVIDERS: PCP Family Medicine; Referring Provider Family Medicine; Visit Provider Family Medicine | DX: R10.11 Right upper quadrant pain (principal); Z53.8 Procedure and treatment not carried out for other reasons ==

== ENCOUNTER → 2019-11-08 12:59 | Outpatient (CLI) | payer OTHER, SELFPAY ==
--- NOTE | 2019-11-08 | DI.NM.S_ITS ---
PROCEDURE: NM HIDA WITH CCK PHARMACEUTICAL: 5.2 mCi Tc-99m mebrofenin IV; 1.4 mcg CCK IV. INDICATIONS: Right upper quadrant abdominal pain TECHNIQUE: Following intravenous administration of Tc-99m mebrofenin, sequential anterior abdominal images were obtained. To evaluate the contractile response of the gallbladder in response to Cholecystokinin (CCK), sincalide (0.02 ?g/kg) was administered by slow intravenous infusion approximately 60 minutes after the administration of the radiopharmaceutical. Sequential imaging was continued for 30 minutes after the start of CCK infusion. Gallbladder ejection fraction was calculated. COMPARISON: [facility], ABDOMEN LIMITED, 06/07/2019, 18:56. FINDINGS: Biliary scan: There is normal tracer uptake and excretion by the liver. There is normal visualization of the intrahepatic ducts, common bile duct, and gallbladder. There is normal tracer transit into the duodenum. CCK stimulation: There is normal contractile response of the gallbladder to CCK infusion. The calculated gallbladder ejection fraction is 63%; normal values are above 35%. IMPRESSION: 1. Normal filling of gallbladder. No evidence for acute cholecystitis. 2. Normal contractile response of gallbladder to CCK stimulation. Dictated by: Liliana Kaur M.D. on 11/08/2019 at 14:19 Approved by: Liliana Kaur M.D. on 11/08/2019 at 14:21
== END ==
PROVIDERS: PCP Family Medicine; Referring Provider Family Medicine; Visit Provider Family Medicine
DX: R10.11 Right upper quadrant pain (principal)
CPT/HCPCS: 78227; A9537; J2805

== ENCOUNTER → 2019-11-20 13:20 | Outpatient (CLI) | payer OTHER, SELFPAY | PROVIDERS: PCP Family Medicine; Referring Provider Family Medicine; Visit Provider Family Medicine | DX: Z91.012 Allergy to eggs (principal) | CPT/HCPCS: 36415; 86003 ==

== ENCOUNTER → 2020-01-16 12:33 | Outpatient (CLI) | payer OTHER, SELFPAY ==
--- NOTE | 2020-01-16 | DI.US.S_ITS ---
PROCEDURE: US THYROID INDICATIONS: DISORDER OF THYROID TECHNIQUE: Real-time scanning was performed of the thyroid gland, with image documentation. COMPARISON: [facility], US, THYROID, 04/03/2016, 19:35. FINDINGS: Right: Thyroid lobe measures 5.3 x 2.0 x 2.0 cm, and is heterogeneous in echotexture. Left: Thyroid lobe measures 5.3 x 2.20 x 2.0 cm, and is heterogeneous in echotexture. Isthmus: 4 mm thick. No discrete thyroid nodule IMPRESSION: No discrete nodule. Diffuse heterogeneous appearance of the thyroid suggestive of nonspecific thyroiditis. Please correlate clinically and with biochemical data Dictated by: Smith Abel M.D. on 01/16/2020 at 15:35 Approved by: Smith Abel M.D. on 01/16/2020 at 15:38
== END ==
PROVIDERS: PCP Family Medicine; Referring Provider Nurse Practitioner Obstetrics & Gynecology; Visit Provider Nurse Practitioner Obstetrics & Gynecology
DX: E07.9 Disorder of thyroid, unspecified (principal)
CPT/HCPCS: 76536

== ENCOUNTER → 2020-04-04 15:41 | Outpatient (CLI) | payer OTHER, MEDICAID, SELFPAY | PROVIDERS: PCP Family Medicine; Referring Provider Nurse Practitioner Obstetrics & Gynecology; Visit Provider Nurse Practitioner Obstetrics & Gynecology | DX: Z36.89 Encounter for other specified antenatal screening (principal); Z53.9 Procedure and treatment not carried out, unspecified reason ==

== ENCOUNTER → 2020-05-15 09:54 | Outpatient (CLI) | payer OTHER, MEDICAID, SELFPAY ==
[2020-05-15 10:35] LABS: Hematocrit 36.3 % (36-46); Hemoglobin 12.4 g/dL (12.0-16.0); Mean Corpuscular HGB Conc 34.1 % (30-36); Mean Corpuscular Volume 93.7 fL (80-100); Platelet Count 180 X10^3/uL (150-400); Red Blood Cell Count 3.88 X10^6/uL (4.0-5.2); Red Cell Distribution Width 14.4 % (11.6-14.8); White Blood Cell Count 7.4 X10^3/uL (4.5-11.0)
[2020-05-15 10:55] LABS: Glucose Fasting 86 mg/dL (70-100)
[2020-05-15 11:28] LABS: Thyroid Stimulating Hormone 1.09 uIU/mL (0.47-4.68)
[2020-05-15 12:01] LABS: Glucose 1 Hour 145 mg/dL (70-170)
[2020-05-15 12:18] LABS: Glucose Tol Interpretation INTERPRETATION
[2020-05-15 12:58] LABS: Glucose 2 Hour 115 mg/dL (70-140)
== END ==
PROVIDERS: PCP Family Medicine; Referring Provider Nurse Practitioner Obstetrics & Gynecology; Visit Provider Nurse Practitioner Obstetrics & Gynecology
DX: Z34.90 Encounter for supervision of normal pregnancy, unspecified, unspecified trimester (principal); Z13.1 Encounter for screening for diabetes mellitus; E03.9 Hypothyroidism, unspecified; Z3A.26 26 weeks gestation of pregnancy
CPT/HCPCS: 36415; 82951; 82952; 84436; 84443; 85027; 86850

== ENCOUNTER → 2020-06-26 09:16 | Outpatient (CLI) | payer OTHER, MEDICAID, SELFPAY ==
[2020-06-26 11:06] LABS: COVID19 -Nasal RAPID Negative (Negative)
[2020-07-29 08:12] LABS: Strep Grp B PCR NEG for Grp B Strep
== END ==
PROVIDERS: PCP Family Medicine; Visit Provider Nurse Practitioner
DX: R05 Cough (principal); R07.0 Pain in throat; Z20.822 Contact with and (suspected) exposure to COVID-19
CPT/HCPCS: 87635; 87653

== ENCOUNTER → 2020-08-03 12:49 | Outpatient (ROUT) | payer OTHER, MEDICAID, SELFPAY | PROVIDERS: PCP Family Medicine; Visit Provider Nurse Practitioner Obstetrics & Gynecology | DX: Z34.90 Encounter for supervision of normal pregnancy, unspecified, unspecified trimester (principal); Z36.85 Encounter for antenatal screening for Streptococcus B; Z3A.36 36 weeks gestation of pregnancy | CPT/HCPCS: 87081 ==

== ENCOUNTER 2020-08-19 07:23 | Inpatient (IN) | payer OTHER, MEDICAID, SELFPAY ==
--- NOTE | 2020-08-19 07:37 | P.HPOB_ITS ---
OB HPI Date/Time Date of admission: 08/19/20 Date Patient Seen: 08/19/20 Time Patient Seen: 07:20 History of Present Condition Chief complaint: LABOR : 5 Para: 3 Estimated Date of Delivery: 08/20/20 Estimated Gestational Age (weeks): 39.6 Narrative: Jenny Leblanc is a 30 year old female @ [id number] by LMP and 8wks US who presents for evaluation of labor requesting an epidural. has been mildly marcio all night w/ small amounts of spotting and pink discharge. Lots of FM. No LOF. Uncomplicated PN care w/ CNM. is present and supportive. History of Present care: good care, initiated at week # (8) and number of visits (10) Dating criteria: LMP confirmed by 1st trimester US Ultrasounds: normal mid trimester US Obstetrical complications: none Medical complications: other (thyroiditis, hypothyroid) Preadmission Labs Blood type: A (-) negative -: Antibody screen: negative, GBS status: negative, HBsAG: negative, HIV: negative and RPR/VDLR: negative -: Chlamydia screen: not detected and Gonorrhea screen: not detected -: Rubella: immune HCT: 36.3 HCAB: negative Cell-free DNA: negative/ male Narrative: 2hr gtt: 86/145/115/negative Prior (ies) History: 09/12/12: SAB @ 5wks 07/05/14: NSVB @ 41wks, 9#6.9oz, female, 2nd degree, epidural, PPH 11/05/15: NSVB @ 40wks, 8#10oz, female, intact, epidural, no complications 01/27/19: NSVB @ 39wks, 10#1oz, male, intact, epidural, no complications Evaluation Evaluation Baseline heart rate: 135 Variability: Moderate (11-25) monitor accelerations: Absent monitor decelerations: Early Contraction Frequency (minutes): 5 Uterine Contraction Intensity: Moderate Status: Category ll Cervical dilation (cm): 5 Cervical effacement (%): 70 station: -2 Comments: CE deferred until after epidural. 5cm CE was in clinic 08/16/20 [facility] Medical History Hypothyroid Migraines Vaginal delivery (01/27/19) Surgical History Hx of appendectomy Family History Father WPW (Rdqks-Cswofgoge-Cqqwi syndrome) Social History marital status: household members: spouse and children (3) Smoking Status: Never smoker alcohol intake: current (ON OCCASION ) substance use type: does not use Meds Home Medications and Allergies Home Medications Medication Instructions Recorded Confirmed Type levothyroxine 100 mcg tablet 100 mcg PO DAILY #30 tab 10/10/19 Rx Allergies Allergy/AdvReac Type Severity Reaction Status Date / Time No Known Drug Allergies Allergy Verified 11/14/19 12:06 Review of Systems Review of Systems ROS: Yes All systems reviewed with the patient and are negative except as otherwise documented Exam Vital Signs (past 8 hours): BP 129/68, HR 114, T 97.8F Temporal Resp Effort & Inspection: normal respiratory effort Auscultation: clear to auscultation bilaterally Cardio Rate: regular rate Rhythm: regular rhythm Heart Sounds: S1 normal and S2 normal Presentation: vertex Assessment and Plan Assessment and Plan Assessment and Plan narrative: A: Term multipara Active labor Hypothyroid- stable on levothyroxine No indication for GBS prophylaxis Cat II FHR, overall reassuring P: Admit, routine orders. Epidural KOURTNEY. Will reassess after patient is comfortable from epidural. OB Back-up and notified of patient admit status and plan of care. Anticipate NSVB.
[2020-08-19 07:59] LABS: Add Manual Diff / Slide Review NO; Basophils Absolute Auto 0 /uL (0-100); Basophils Percent Auto 0.2 % (0-2); Eosinophils Absolute Auto 0 /uL (0-450); Eosinophils Percent Auto 0.1 % (2-4); Hematocrit 38.9 % (36-46); Hemoglobin 13.5 g/dL (12.0-16.0); Lymphocytes Absolute Auto 1100 /uL (1100-4500); Lymphocytes Percent Auto 7.9 % (25-40); Mean Corpuscular HGB Conc 34.7 % (30-36); Mean Corpuscular Hemoglobin 32.8 PG (26-34); Mean Corpuscular Volume 94.4 fL (80-100); Monocytes Absolute Auto 800 /uL (0-900); Monocytes Percent Auto 6.1 % (3-14); Neutrophils Absolute Auto 11600 /uL (1500-7000); Neutrophils Percent Auto 85.7 % (50-75); Platelet Count 150 X10^3/uL (150-400); Red Blood Cell Count 4.12 X10^6/uL (4.0-5.2); Red Cell Distribution Width 14.3 % (11.6-14.8); White Blood Cell Count 13.6 X10^3/uL (4.5-11.0)
[2020-08-19] MEDS: LACTATED RINGERS 1,000 ML 100 ML IV (08:00)
[2020-08-19 08:13] LABS: COVID19 -Nasal RAPID Negative (Negative)
[2020-08-19] MEDS: miSOPROStoL 200 MCG TABLET 400 MCG SL (12:30)
--- NOTE | 2020-08-19 12:35 | PM.OBPRVD ---
Events: Labor Augmentation (Clear fluid @ 1005) Labor & Delivery Delivery date: 08/19/20 Intrapartal Events: None Induction method: none Delivery augmentation: rupture of membranes Delivery monitor: external FHT and external uterine Route of delivery: L&D Laceration Description: None Estimated blood loss (mL): 550 Anesthesia Type: Epidural Narrative: Patient labored well w/ steady progression after AROM @ 1005 for clear fluid. Epidural pulled out spontaneously and was replaced w/ good pain relief. Shortly after, pt was examined and found to be C/C/+2. Minimal coaching and patient effort led to rapid descent of vertex. NSVB of a vigorous baby boy in MILLICENT position w/ no nuchal cord and easy delivery of the placenta. Heavy bleeding was noted immediately after the . 20 units of pitocin was added to remaining 500mL LR for AMTSL. Hospital cord blood hold sample was collected. After cessation of pulsation, the cord was double clamped by CNM and cut by FOB. Fundus immediately firm and bleeding minimal. Vagina and perineum inspected and intact. Uterus was checked and massaged firm and misoprostil 400mcg SL was ordered. QBL 550mL. Bleeding back to minimal and mother and baby skin to skin as I left the room. Baby 1: Infant gender: Male Presentation: vertex Position: Right Occiput Anterior Placenta delivery description: Spontaneous Cord Vessel Description: 3 Vessels score (1 min): 8 score (5 min): 9 weight: 3.8 kg Plan for aftercare: Routine care and Other (CBC in am. Watch bleeding closely, RN to notify CNM and weigh pads if significant, additional bleeding occurs.)
[2020-08-19] MEDS: METHYLERGONOVINE 0.2 MG TABLET PO (14:30)
[2020-08-19] MEDS: TRANEXAMIC ACID 1,000 MG in SODIUM CHLORIDE 0.9% 100 ML 400 ML IV (14:44)
--- NOTE | 2020-08-19 14:47 | PM.PN.1 ---
Subjective Subjective Date Patient Seen: 08/19/20 Time Patient Seen: 14:10 Interval history: Patient was cold w/ uncontrollable shivering after the that has now resolved. Has breastfed well and eaten some lunch. CNM in room to check on patient who reports need to void and heavy bleeding. Vaginal bleeding had slowed after the , but RN now reports large clots at last check. Patient assisted to bathroom by CNM and FOB w/ large void and steady vaginal bleeding. Exam Vital Signs (past 8 hours): BP 127/59, HR 112bpm, T 37.5F Temporal Other: Fundus is firm and midline. Bleeding moderate to heavy. Objective Labs Result Diagrams: 08/19/20 07:27 Labs: Laboratory Results - last 24 hr 08/19/20 08/19/20 08/19/20 07:27 07:27 07:56 WBC 13.6 H RBC 4.12 Hgb 13.5 Hct 38.9 MCV 94.4 MCH 32.8 MCHC 34.7 RDW 14.3 Plt Count 150 Neut % (Auto) 85.7 H Lymph % (Auto) 7.9 L [place] % (Auto) 6.1 Eos % (Auto) 0.1 L Baso % (Auto) 0.2 Neut # (Auto) 10660 H Lymph # (Auto) 1100 [place] # (Auto) 800 Eos # (Auto) 0 Baso # (Auto) 0 SARS-CoV-2 (PCR) Negative Blood Type A Negative Antibody Screen Negative [facility] Medical History Hypothyroid Migraines Vaginal delivery (01/27/19) Surgical History Hx of appendectomy Family History Father WPW (Ykasu-Zqaatprhp-Pqnif syndrome) Social History marital status: household members: spouse and children (3) Smoking Status: Never smoker alcohol intake: current (ON OCCASION ) substance use type: does not use Assessment & Plan Assessment & Plan narrative: A: increased PP bleeding P: Asked RN to weigh saturated pads/chux. PO methergine and TXA IV ordered now. Closely monitor vaginal bleeding. Will consult OB if no improvement in next 10-15 minutes. CBC in am.
[2020-08-19] MEDS: KETOROLAC 30 MG/ML VIAL IV (14:53)
[2020-08-19 17:00] VITALS: TEMP 37.1
[2020-08-19] MEDS: ACETAMINOPHEN 325 MG TABLET 650 MG PO (17:00)
[2020-08-19] MEDS: LANOLIN OINT 7 GM 1 APPLIC TOP (17:00)
[2020-08-19] MEDS: OXYCODONE IR 5 MG TABLET PO (18:53)
[2020-08-19] MEDS: IBUPROFEN 600 MG TABLET PO (20:21)
[2020-08-20] MEDS: METHYLERGONOVINE 0.2 MG TABLET PO (01:51)
[2020-08-20] MEDS: IBUPROFEN 600 MG TABLET PO ×3 (01:51→14:15)
[2020-08-20] MEDS: ACETAMINOPHEN 325 MG TABLET 650 MG PO ×3 (01:51→14:15)
[2020-08-20] MEDS: OXYCODONE IR 5 MG TABLET PO ×3 (02:26→16:21)
[2020-08-20 06:47] LABS: Add Manual Diff / Slide Review NO; Basophils Absolute Auto 0 /uL (0-100); Basophils Percent Auto 0.3 % (0-2); Eosinophils Absolute Auto 0 /uL (0-450); Eosinophils Percent Auto 0.3 % (2-4); Hematocrit 34.9 % (36-46); Hemoglobin 11.8 g/dL (12.0-16.0); Lymphocytes Absolute Auto 1600 /uL (1100-4500); Lymphocytes Percent Auto 14.1 % (25-40); Mean Corpuscular HGB Conc 33.7 % (30-36); Mean Corpuscular Volume 94.7 fL (80-100); Monocytes Absolute Auto 900 /uL (0-900); Monocytes Percent Auto 7.9 % (3-14); Neutrophils Absolute Auto 8800 /uL (1500-7000); Neutrophils Percent Auto 77.4 % (50-75); Platelet Count 147 X10^3/uL (150-400); Red Blood Cell Count 3.68 X10^6/uL (4.0-5.2); White Blood Cell Count 11.4 X10^3/uL (4.5-11.0)
[2020-08-20] MEDS: FERROUS SULFATE 325 MG TABLET PO (08:38)
[2020-08-20] MEDS: RHO(D) IMMUNE GLOBULIN 1,500 UNIT SYRINGE 1500 UNIT IM (12:07)
--- NOTE | 2020-08-20 13:10 | P.DS_ITS ---
Discharge Providers Provider Date of admission: 08/19/20 07:23 Discharge Date: 08/20/20 Primary care physician: Farzad Ruvalcaba MD Consults: 08/19/20 07:29 Consult to Anesthesiology Urgent Comment: Consulting Provider: Anesthesiologist Reason for consultation: labor, patient request Has provider been notified: No 08/20/20 12:33 Consult to Six Sigma Project Manager Routine Comment: Discharge provider: Gina Goode CNM Summary Discharge Diagnosis (1) hemorrhage: Status: Acute Problem Details: 550mL @ treated with pitocin and misoprostil, then delayed additional 800mL resolved with TXA and PO methergine. Bleeding is resolved and CBC and VS are stable this morning. (2) Encounter for full-term uncomplicated delivery: Status: Acute Problem Details: Routine PP course with exception of PPH. Time Spent with Patient Time attestation: Total time spent providing and/or coordinating discharge services: Objective Labs Result Diagrams: 08/20/20 06:30 Labs: Laboratory Results - last 24 hr 08/20/20 08/20/20 06:30 06:30 WBC 11.4 H RBC 3.68 L Hgb 11.8 L Hct 34.9 L MCV 94.7 MCH 32.0 MCHC 33.7 RDW 14.0 Plt Count 147 L Neut % (Auto) 77.4 H Lymph % (Auto) 14.1 L Cecil % (Auto) 7.9 Eos % (Auto) 0.3 L Baso % (Auto) 0.3 Neut # (Auto) 8800 H Lymph # (Auto) 1600 Cecil # (Auto) 900 Eos # (Auto) 0 Baso # (Auto) 0 Maternal Bleed Negative Exam Vital Signs (past 8 hours): 125/80, HR 88bpm, RR 16/min, T 97.8 F Termporal Other: Fundud firm @ umbilicus. Lochia scant. Perineum intact. Psych Appearance: grossly normal Speech and Movement: speech and movement normal Affect: normal affect Discharge Plan Discharge Plan Patient Disposition: Home Discharge orders & Medications Prescriptions: New levothyroxine [Synthroid] 100 mcg Tablet 100 mcg PO 0600 60 Days Qty: 60 RF: 6 ibuprofen 600 mg Tablet 600 mg PO Q6HR PRN (Reason: Pain, Mild (1-3)) 14 Days Qty: 60 RF: 0 oxycodone 5 mg Tablet 5 mg PO Q4HR PRN (Reason: Pain, Moderate (4-6)) 5 Days Qty: 12 RF: 0 Continued levothyroxine [Synthroid] 100 mcg tablet 100 mcg PO DAILY Qty: 30 RF: 11 Complete 1 tab PO DAILY RF: 0 Follow up/Referrals: Gina Goode CNM [Advanced Religious Ritual Slaughterer] - (Follow-up @ 2wks by Telehealth on 09/04/20 @ 12pm Follow-up @ 6 wks in office on 10/05/20 @ 10am) Farzad Ruvalcaba MD [Primary Care Provider] - Diet/Activity/Treatments Diet: Diet as Tolerated Activity: pelvic rest x 6 weeks Skin/Wound/Dressing Care Report to your healthcare provider any signs of infection, such as:: chills, fever, increased pain, unusual drainage and unusual redness Visit Report/Discharge Packet Instructions: DI for Depression Discharge Data Primary Care Provider: Farzad Ruvalcaba
[2020-08-20 13:27] VITALS: BP 125/80; PULSE 120; RESP 16; TEMP 36.6
== END 2020-08-20 17:05 | disposition home or self-care (01) | DRG 560 ==
PROVIDERS: Admitting Provider Nurse Practitioner Obstetrics & Gynecology; PCP Family Medicine; Referring Provider Nurse Practitioner Obstetrics & Gynecology; Visit Provider Nurse Practitioner Obstetrics & Gynecology
DX: O99.284 Endocrine, nutritional and metabolic diseases complicating childbirth (principal); E03.9 Hypothyroidism, unspecified; O72.1 Other immediate postpartum hemorrhage; Z37.0 Single live birth; Z3A.39 39 weeks gestation of pregnancy; Z20.822 Contact with and (suspected) exposure to COVID-19
CPT/HCPCS: 01967; 36415; 59050; 85025; 85461; 86850; 86870; 86900; 86901; 87635; C9803; G0379; J1885; J2790; S0191

== ENCOUNTER → 2020-08-27 14:53 | Outpatient (CLI) | payer OTHER, MEDICAID, SELFPAY ==
[2020-08-27 16:06] LABS: Appearance Urine UA CLOUDY; Bilirubin Urine UA NEGATIVE (NEGATIVE); Color Urine UA YELLOW; Glucose Urine UA NEGATIVE (Negative); Ketones Urine UA NEGATIVE (NEGATIVE); Leukocyte Esterase Urine UA 3+ (NEGATIVE); Nitrite Urine UA NEGATIVE (Negative); Occult Blood Urine UA 3+ (Negative); Protein Urine UA 1+ (Negative); Specific Gravity Urine UA 1.015 (1.000-1.035); Urobilinogen Urine UA 0.2 E.U./dL (0.2)
[2020-08-27 16:11] LABS: pH Urine UA 7.5 (4.5-8.0)
[2020-08-27 16:24] LABS: RBC Urine >100/HPF (0-5/HPF); WBC Urine >100/HPF (0-5/HPF)
[2020-08-27 16:25] LABS: Bacteria Urine Few (2-10); Culture Indicated Urine Specimen Cultured; Squamous Epithelial Cell Urine 0-1 /HPF (0-5/HPF); Transitional Epi Cells Urine 1-5/HPF (0-5/HPF)
== END ==
PROVIDERS: PCP Family Medicine; Visit Provider Family Medicine
DX: O72.1 Other immediate postpartum hemorrhage (principal)
CPT/HCPCS: 81001; 87086

== ENCOUNTER → 2020-08-27 16:47 | Outpatient (CLI) | payer OTHER, MEDICAID, SELFPAY ==
[2020-08-27 17:32] LABS: Hematocrit 37.6 % (36-46); Hemoglobin 12.9 g/dL (12.0-16.0)
== END ==
PROVIDERS: PCP Family Medicine; Referring Provider Family Medicine; Visit Provider Family Medicine
DX: O72.1 Other immediate postpartum hemorrhage (principal)
CPT/HCPCS: 36415; 81001; 85014; 85018; 87077; 87086; 87186

== ENCOUNTER → 2021-06-24 11:29 | Outpatient (CLI) | payer OTHER, MEDICAID, SELFPAY ==
[2021-06-24 12:24] LABS: Free T3, Triiodothyronine Free 3.16 pg/mL (2.77-5.27)
[2021-06-24 12:38] LABS: TSH w/ Reflex to FT4 4.79 uIU/mL (0.47-4.68)
== END ==
PROVIDERS: PCP Family Medicine; Referring Provider Physician Assistant; Visit Provider Physician Assistant
DX: E03.9 Hypothyroidism, unspecified (principal); E04.9 Nontoxic goiter, unspecified; E06.9 Thyroiditis, unspecified
CPT/HCPCS: 36415; 84439; 84443; 84481

== ENCOUNTER → 2021-07-31 11:46 | Outpatient (CLI) | payer OTHER, MEDICAID, SELFPAY ==
--- NOTE | 2021-07-31 11:48 | DI.CT.S_ITS ---
PROCEDURE: CT ABDOMEN PELVIS W CON INDICATIONS: Episodes of severe epigastric pain with N/V/D lasting 2 days TECHNIQUE: After the administration of oral and IV contrast, axial sections were acquired from the lung bases to the pubic symphysis. Coronal and sagittal reformats were performed. For radiation dose reduction, the following was used: automated exposure control, adjustment of mA and/or kV according to patient size. COMPARISON: None. FINDINGS: Image quality: Excellent. Lung bases: Unremarkable. Heart: No significant findings. ABDOMEN: Liver: Decreased attenuation of the liver, compatible hepatic steatosis. Measures 17.6 cm in length. Gallbladder: Unremarkable. Biliary ducts: Unremarkable. Pancreas: Unremarkable. Spleen: Unremarkable. Adrenal Glands: Unremarkable. Kidneys and Ureters: Unremarkable. Stomach and Bowel: No evidence of intestinal obstruction or inflammatory change. Soft tissue prominence is seen 9th the ileocecal valve, measuring approximately 2.6 x 3.1 cm. The appendix is not definitively seen. Peritoneum: No abnormal intraperitoneal fluid. No free air. Ventral Wall: No hernia. Abdominal Nodes: No retroperitoneal or mesenteric adenopathy by size criteria. Vessels: Aorta and inferior vena cava are normal in size. PELVIS: Pelvic Organs: Unremarkable. 1.7 cm hypoattenuating lesion in the right adnexa, compatible with an ovarian cyst. Prominent right pelvic vasculature. Bladder: Unremarkable. Pelvic Nodes: No enlarged lymph nodes. Miscellaneous: No inguinal hernias are seen. Bones: Unremarkable. IMPRESSION: 1. Hypoattenuating lesion in the right adnexa, most consistent with an ovarian cyst. 2. Soft tissue prominence at the ileocecal valve, which is nonspecific and may reflect stool. Consider correlation with fecal occult blood test. 3. Prominent right pelvic vessels, concerning for pelvic congestion. Dictated by: Klaus Lewis M.D. on 07/31/2021 at 15:08 Approved by: Klaus Lewis M.D. on 07/31/2021 at 15:19
== END ==
PROVIDERS: PCP Family Medicine; Referring Provider Physician Assistant; Visit Provider Physician Assistant
DX: N94.9 Unspecified condition associated with female genital organs and menstrual cycle (principal); R10.13 Epigastric pain; R19.7 Diarrhea, unspecified; R11.2 Nausea with vomiting, unspecified
CPT/HCPCS: 74177

== ENCOUNTER → 2022-04-14 18:48 | Outpatient (CLI) | payer OTHER, MEDICAID, SELFPAY ==
[2022-04-14 21:22] LABS: Influenza A - CEPHEID Flu A NEGATIVE (NEGATIVE); Influenza B - CEPHEID Flu B NEGATIVE (NEGATIVE); Respiratory Syncytial Virus Negative (Negative)
[2022-04-14 21:26] LABS: COVID-19 CEPHEID 4-PLEX PCR Negative (Negative)
== END ==
PROVIDERS: PCP Family Medicine; Visit Provider Student in an Organized Health Care Education/Training Program
DX: J02.9 Acute pharyngitis, unspecified (principal); R52 Pain, unspecified
CPT/HCPCS: 0241U

== ENCOUNTER → 2022-05-23 17:52 | Outpatient (CLI) | payer OTHER, MEDICAID, SELFPAY | PROVIDERS: PCP Family Medicine; Visit Provider Nurse Practitioner Family | DX: N89.8 Other specified noninflammatory disorders of vagina (principal) | CPT/HCPCS: 81002; 87086; 87210 ==

== ENCOUNTER → 2023-03-04 15:08 | Outpatient (CLI) | payer OTHER, MEDICAID, SELFPAY ==
--- NOTE | 2023-03-04 | DI.US.S_ITS ---
PROCEDURE: US PELVIC COMPLETE INDICATIONS: EXCESSIVE AND FREQUENT MENSTRUATION TECHNIQUE: Real-time scanning was performed of the pelvic organs, with image documentation. Additional endovaginal scanning was necessary due to incomplete visualization of the adnexal and endometrial structures by transabdominal scanning. COMPARISON: [facility], [place], PELVIC COMPLETE, 11/21/2008, 8:31. FINDINGS: Uterus: Uterus is retroverted and normal in size at 9.6 x 5.2 x 6.8 cm. The myometrium is homogeneous. The endometrium measures 8 mm combined thickness. Ovaries: The right ovary measures 3.2 x 3.2 x 2.8 cm, with a calculated ovarian volume of 15 cc. The left ovary measures 3.8 x 1.5 x 3.4 cm, with a calculated ovarian volume of 10.1 cc. The ovaries have a normal sonographic appearance. Less than 12 follicles can be seen in each ovary. No adnexal masses are seen. Other: No pathologic free abdominal or pelvic fluid. IMPRESSION: Unremarkable pelvic ultrasound. No sonographic evidence of PCOS. We strive to produce accurate, complete, and clear reports of imaging services. To assist us in improving patient care, this report was composed using standard report templates and voice recognition software. Therefore, it may contain abnormal punctuation, insertions and/or omissions. Occasional wrong-word or sound-alike substitutions may occur. Though we review the report and make efforts to correct it, we do recommend that the report be read carefully in proper context to recognize any text inaccuracies. Dictated by: Jonny Roche M.D. on 03/04/2023 at 16:34 Approved by: Jonny Roche M.D. on 03/04/2023 at 16:35
[2023-03-04 16:56] LABS: Hemoglobin 12.3 g/dL (12.0-16.0)
[2023-03-04 18:08] LABS: Thyroid Stimulating Hormone 2.47 uIU/mL (0.47-4.68)
[2023-03-05 06:13] LABS: Triiodothyronine T3 Total 81 ng/dL (71-180)
== END ==
PROVIDERS: Family Provider Family Medicine; PCP Family Medicine; Referring Provider Nurse Practitioner Obstetrics & Gynecology; Visit Provider Nurse Practitioner Obstetrics & Gynecology
DX: N92.1 Excessive and frequent menstruation with irregular cycle (principal); E03.9 Hypothyroidism, unspecified
CPT/HCPCS: 36415; 76830; 76856; 84443; 84480; 85014; 85018; 93975

== ENCOUNTER 2023-09-17 08:15 | Outpatient (RCR) | payer OTHER, MEDICAID, SELFPAY ==
--- NOTE | 2023-03-26 17:03 | PT.OIE ---
Current Diagnoses Low back pain, unspecified (03/26/23) Cystocele, unspecified (03/26/23) Retention of urine, unspecified (03/26/23) Past Medical History (Last Reviewed 04/14/22 @ 19:33 by Tatiana Duong PA-C) Encounter for full-term uncomplicated delivery Hypothyroid Mastitis Migraines hemorrhage Vaginal delivery (01/27/19) Past Surgical History (Last Reviewed 04/14/22 @ 19:33 by Tatiana Duong PA-C) Hx of appendectomy Visit Care Team Role Provider Type Farzad Ruvalcaba MD Family Provider Physician Primary Care Provider Specialty: Family Practice Address: [address] [place] [address], [id number] Email: [email or web address] Gina Fernandez CNM Attending Provider Advanced Switching Clerk Referring Provider Specialty: DATA INPUT CLERK Address: [address] [place] [address], [address] Email: [email or web address] Physical Therapy Initial Evaluation PT-OP-A Visit Information Start: 03/18/23 17:50 Freq: Status: Active Protocol: Document 03/26/23 15:07 LRN (Rec: 03/26/23 16:58 LRN [id number]) Out-Patient Physical Therapy Visit Information Visit Information Visit Type Initial Evaluation Visit Start Time 15:07 Visit Stop Time 15:59 Total Visit Minutes 52 Visit Number 07/07 Evaluation Information Evaluation Date 03/26/23 Precautions Precautions LBP/neck pain. PT-OP-B Current Condition Start: 03/18/23 17:50 Freq: Status: Active Protocol: Document 03/26/23 15:07 LRN (Rec: 03/26/23 16:58 LRN [id number]) Current Condition History of Current Condition Onset Date 2014 Current Complaints High frequency of urination and has PF bulge w/sometimes pressure and LBP History of Current Condition States she has LBP and PF dysfunction after carrying 4 large babies. LBP started after first . Just before her period LBP is severe and pain is present after prolonged standing. States when lying on stomach LB feel like something is dislocating. She complains of high frequency of urination and feeling of bulge and pressure in the PF. Prior Treatments and Tests Pelvic Ultrasound and was told her bladder looked good. Future Testing and Treatments Planned No Developmental History Developmental History 4Gravida, 4Parety: Births: , 11/05/2013, 2016, 08/19/2018 (ages 11, 10, 6 , 4). Treatment Goals Patient/Caregiver Goals Pt goals: Reduce back pain. Decrease feeling of bulge and pressure in PF with exercise. Decrease freqency of urination . Personal Factors Other Personal Factors That May Effect Neck pain/headaches after Therapy/Recovery childbearing, anxiety not controlled by meds. 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 PT-OP-C Subjective Start: 03/18/23 17:50 Freq: Status: Active Protocol: Document 03/26/23 15:07 LRN (Rec: 03/26/23 16:58 LRN [id number]) Patient Questionnaires Oswestry Low Back Index Oswestry Score Pt took questionnaire home Pelvic Pain and Urgency/Frequency Patient Symptom Scale Pelvic Pain Score 14 PT-OP-H Neuro Start: 03/18/23 17:50 Freq: Status: Active Protocol: Document 03/26/23 15:07 LRN (Rec: 03/26/23 16:58 LRN [id number]) Sensation Evaluation Gross Sensation Gross Sensation WNL PT-OP-I Pelvic Floor Start: 03/18/23 17:50 Freq: Status: Active Protocol: Document 03/26/23 15:07 LRN (Rec: 03/26/23 16:58 LRN [id number]) Pelvic Floor Assessment Urine Urinary Symptoms Hesitancy,Dribbling After Urination,Falling Out Feeling/ Heavy Other Urinary Symptoms Has feeling to urinate frequently after first urination. Leakage Size Large Leakage Cause Cough,Exercise,Sneeze Other Leakage Causes Jumping exercise. Leaks Per Day 11-14 Voiding Frequency 6+ Nocturia 2-3 Pads Used In 24 Hours 0 Bowel Bowel Symptoms Constipation Bowel Movement Frequency once every 1-2 days [place] Stool Chart Comments type 2 or 3. Pelvic Clock Pelvic Clock Other Externally: Tender at 2-5 and 7-10 of PF Clock. Internally: Tender at 2-5 of PF clock. Hardened, ruggae type tissue 10-11 PF Clock. Prolapse Cystocele Grade 2 Rectocele Grade 2 Perineal Descent Resting Absent Bearing Present Contraction Ability Voluntary Contraction Weak Voluntary Relaxation Absent Manual Muscle Testing Left 1 Manual Muscle Testing Right 0 Manual Muscle Testing Anterior 0 Manual Muscle Testing Posterior 0 Muscle Endurance (Seconds) 1 Number of Quick Contractions In 10 1 Seconds PT-OP-J Posture/Palpation/Skin Start: 03/18/23 17:50 Freq: Status: Active Protocol: Document 03/26/23 15:07 LRN (Rec: 03/26/23 16:58 LRN [id number]) Posture Evaluation Position Standing T-Spine Posture Flattened L-Spine Posture Increased Lordosis Shoulder Posture Neutral Pelvis Posture Anteriorly Tilted Comments Posture Comments R PSIS is high and slightly posterior, L4-L5 angled left. Palpation Assessment Location Neck pain Palpation Location Cervical paraspinals and bilateral UT's Palpation Findings Soft Tissue Tightness, Tenderness Low Back Palpation Location L4-L5 and sacrum Palpation Details Standing: No tenderness, but location above is where her reported pain is with prolonged standing or before menstration. Prone: Tenderness with PA pressure. PT-OP-K Range of Motion Start: 03/18/23 17:50 Freq: Status: Active Protocol: Document 03/26/23 15:07 LRN (Rec: 03/26/23 16:58 LRN [id number]) Lumbar Spine Range of Motion Lumbar Spine Active Degrees Testing Position Standing Flexion 110 Extension 30 Rotation Left 30 Rotation Right 30 Lateral Flexion Left 25 Lateral Flexion Right 20 Comments Trunk AROM: Flexion is 110 deg?s with 60 deg?s hip flexion, Trunk extension is 30 deg?s with 20 deg?s hip extension. Hip Goniometric Range of Motion Hip Right Passive Testing Position Supine Internal Rotation 40 External Rotation 70 Left Passive Testing Position Supine Internal Rotation 35 External Rotation 70 PT-OP-L Special Tests Start: 03/18/23 17:50 Freq: Status: Active Protocol: Document 03/26/23 15:07 LRN (Rec: 03/26/23 16:58 LRN [id number]) Special Tests Lumbar Spine Special Tests Straight Leg Raise Test Results - bilaterally PT-OP-M Strength Start: 03/18/23 17:50 Freq: Status: Active Protocol: Document 03/26/23 15:07 LRN (Rec: 03/26/23 16:58 LRN [id number]) Trunk Strength Trunk Manual Muscle Testing Core Stabilization Loss of core rotational stability with MMT of hip ext. Hip Strength Hip Manual Muscle Testing Right Comments Strength is 5/5 Left Flexion (L2) 4 Good External Rotation 4+ Good+ Comments Strength is 5/5 except as indicated above PT-OP-Q Treatments Start: 03/18/23 17:50 Freq: Status: Active Protocol: Document 03/26/23 15:07 LRN (Rec: 03/26/23 16:58 LRN [id number]) Therapeutic Exercises Sitting Exercises Urinary Delay Technique Sitting Exercise Name Urinary Delay Technique Reps/Minutes 2' Other Exercises supine<>sit Other Exercise Name Supine>sidelie>sit, coordinating with breathwork. Reps/Minutes 2' Comments Phys & v cuing for exhale of breath with each mvmt. Self-Care/Home Management Treatment Education Patient Education Body Mechanics Other Education Discussed results of evaluation, goals, and plan of care (POC). Pt agreeable to goals and POC. Educated pt in Urinary delay technique and practiced x 1 with minimal quieting of urge. Pt educated in supine<>sit coordinating breath with transfer. Activities Self-Care/Home Management Activities I/S pt to perform transfers and movements with breathwork. PT-OP-T Assessment and Plan Start: 03/18/23 17:50 Freq: Status: Active Protocol: Document 03/26/23 15:07 LRN (Rec: 03/26/23 16:58 [facility] [id number]) Physical Therapy Assessment Rehab Potential Rehabilitation Potential Good Evaluation Complexity Number of Personal Factors/Comorbidities 3 or More Number of Body Systems Impaired 4 or More Clinical Presentation at Evaluation Evolving Impairments Impairments Activity Tolerance,Pain, Posture,ROM,Soft Tissue Mobility,Strength,Transfers Goals Four Impairment Low back pain with prolonged standing Short Term Goal (STG) Pt will be able to stabilize her core with MMT of hip extension. STG Duration 6 wks-05/21/23 Frankfurter Inspector Goal (LTG) Reduce back pain with pt able to manage her pain with core stabilization. LTG Duration 12 wks-06/24/23 Three Impairment Bulge pressure in PF with exercise. Short Term Goal (STG) Education in proper methods for transfer with coordination of breathing. 03/26/23: Pt educated in transfer supine>sit coordinating breathing. STG Duration 2 wks-04/09/23 progressed Snf Goal (LTG) Decrease feeling of bulge and pressure in PF with exercise. LTG Duration 12 wks-06/24/23 Two Impairment Increased frequency of urination. Impairment Urinary voiding 1-2 more times immediately after voiding throughout the day. Short Term Goal (STG) Decrease frequency that pt needs to void immediately after voiding to 1x/day. STG Duration 6 wks-05/21/23 Frankfurter Inspector Goal (LTG) Decrease freqency of urination to every 2-3 hours. LTG Duration 12 wks-06/24/23 One Impairment Pt lacks appropriate self care HEP. Short Term Goal (STG) Pt will be educated in proper PF contractions, vulvar/ genital care. STG Duration 3 wks-04/16/23 Snf Goal (LTG) Pt will be independent with a self care HEP of PF/core strengthening and hip ROM exercises. LTG Duration 12 wks-06/24/23 Assessment Summary Assessment Pt is a 33 yo female who presents with cystocele, rectocele and possible urethrocele. She has frequent urination complaints and LBP since first as well as neck pain. She has obvious weakness of her PF and core, active trigger points (mostly on the left side), poor coordination of breathwork with movments and neck/upper shoulder pain and decreased hip mobility and strength. The pt will benefit from skilled physical therapy to achieve the above stated goals . Her rehabilitation is expected to take longer due to multiple areas of dysfunction (PF, back, neck) that will need to be addressed. Physical Therapy Plan Frequency and Duration Frequency of Treatment 1x/Week Duration of treatment (weeks) 12 Plan of Care Start Date 03/26/23 Plan of Care End Date 06/24/23 Therapeutic Interventions Therapeutic Interventions Home Exercise Program,Joint Mobilizations,Manual Therapy, Neuromuscular Re-education, Self-Care/Home Management,Soft Tissue Mobilization,Taping, Therapeutic Activities, Therapeutic Exercises Modalities Biofeedback,Cold Pack/Ice Massage,Electric Stimulation Next Visit Focus/Plan Next Note Type Treatment Note Next Visit Plan Next: Educated pt in use of Bladder Diary and I/S in tracking for 1 week. Discussed use of 2 different diaries for tracking of bladder & Issue/review HEP: Kegel ex's and discussed exercise of Quick Flicks, Long Holds and Aggravators. POC: Review bladder diary and make recommendation when completed. Sacral balancing & PF trP treatment, abdominal STM; PF (on wedge and weather reporter PF) & hip strengthening; hip IR stretching; EStim of PF & PF Vemg Biofeedback; Education: Deep breathing, proper & isolated PF contractions, vulvar/genital care.
--- NOTE | 2023-03-26 17:03 | PT.OPPOC ---
Physical, Occupational & Speech Therapy At [facility] Current Diagnoses Low back pain, unspecified (03/26/23) Cystocele, unspecified (03/26/23) Retention of urine, unspecified (03/26/23) Visit Care Team Role Provider Type Farzad Ruvalcaba MD Family Provider Physician Primary Care Provider Specialty: Family Practice Address: [address] [place] [address], [address] Email: [email or web address] Gina Fernandez CNM Attending Provider Advanced Breaker Boss Referring Provider Specialty: JDE DEVELOPER Address: [address] [place] [address], [address], [address] Email: [email or web address] Plan Of Care PT-OP-T Assessment and Plan Start: 03/18/23 17:50 Freq: Status: Active Protocol: Document 03/26/23 15:07 LRN (Rec: 03/26/23 16:58 LRN [id number]) Physical Therapy Assessment Rehab Potential Rehabilitation Potential Good Evaluation Complexity Number of Personal Factors/Comorbidities 3 or More Number of Body Systems Impaired 4 or More Clinical Presentation at Evaluation Evolving Impairments Impairments Activity Tolerance,Pain, Posture,ROM,Soft Tissue Mobility,Strength,Transfers Goals Four Impairment Low back pain with prolonged standing Short Term Goal (STG) Pt will be able to stabilize her core with MMT of hip extension. STG Duration 6 wks-05/21/23 Snf Goal (LTG) Reduce back pain with pt able to manage her pain with core stabilization. LTG Duration 12 wks-06/24/23 Three Impairment Bulge pressure in PF with exercise. Short Term Goal (STG) Education in proper methods for transfer with coordination of breathing. 03/26/23: Pt educated in transfer supine>sit coordinating breathing. STG Duration 2 wks-04/09/23 progressed Sales Coach Goal (LTG) Decrease feeling of bulge and pressure in PF with exercise. LTG Duration 12 wks-06/24/23 Two Impairment Increased frequency of urination. Impairment Urinary voiding 1-2 more times immediately after voiding throughout the day. Short Term Goal (STG) Decrease frequency that pt needs to void immediately after voiding to 1x/day. STG Duration 6 wks-05/21/23 Sales Coach Goal (LTG) Decrease freqency of urination to every 2-3 hours. LTG Duration 12 wks-06/24/23 One Impairment Pt lacks appropriate self care HEP. Short Term Goal (STG) Pt will be educated in proper PF contractions, vulvar/ genital care. STG Duration 3 wks-04/16/23 Sales Coach Goal (LTG) Pt will be independent with a self care HEP of PF/core strengthening and hip ROM exercises. LTG Duration 12 wks-06/24/23 Assessment Summary Assessment Pt is a 33 yo female who presents with cystocele, rectocele and possible urethrocele. She has frequent urination complaints and LBP since first as well as neck pain. She has obvious weakness of her PF and core, active trigger points (mostly on the left side), poor coordination of breathwork with movments and neck/upper shoulder pain and decreased hip mobility and strength. The pt will benefit from skilled physical therapy to achieve the above stated goals . Her rehabilitation is expected to take longer due to multiple areas of dysfunction (PF, back, neck) that will need to be addressed. Physical Therapy Plan Frequency and Duration Frequency of Treatment 1x/Week Duration of treatment (weeks) 12 Plan of Care Start Date 03/26/23 Plan of Care End Date 06/24/23 Therapeutic Interventions Therapeutic Interventions Home Exercise Program,Joint Mobilizations,Manual Therapy, Neuromuscular Re-education, Self-Care/Home Management,Soft Tissue Mobilization,Taping, Therapeutic Activities, Therapeutic Exercises Modalities Biofeedback,Cold Pack/Ice Massage,Electric Stimulation Next Visit Focus/Plan Next Note Type Treatment Note Next Visit Plan Next: Educated pt in use of Bladder Diary and I/S in tracking for 1 week. Discussed use of 2 different diaries for tracking of bladder & Issue/review HEP: Kegel ex's and discussed exercise of Quick Flicks, Long Holds and Aggravators. POC: Review bladder diary and make recommendation when completed. Sacral balancing & PF trP treatment, abdominal STM; PF (on wedge and industrial paramedic PF) & hip strengthening; hip IR stretching; EStim of PF & PF Vemg Biofeedback; Education: Deep breathing, proper & isolated PF contractions, vulvar/genital care. Plan of Care Dates Plan of Care Start Date 03/26/23 Plan of Care End Date 06/24/23 Electronically Signed by: Anai Iraheta, PT 03/26/23 0863 If you are in agreement with this Plan of Care, please return a signed and dated copy. I have reviewed this Plan of Care and certify that the skilled therapy services above are required to meet the patient?s needs. Physician Signature Date Printed Name and Credentials Clinical Instructor Signature Printed Name and Credentials mon, evin
--- NOTE | 2023-03-26 17:09 | PT.OPPOC ---
Physical, Occupational & Speech Therapy At [facility] Current Diagnoses Cervicalgia (03/26/23) Low back pain, unspecified (03/26/23) Cystocele, unspecified (03/26/23) Retention of urine, unspecified (03/26/23) Visit Care Team Role Provider Type Farzad Ruvalcaba MD Family Provider Physician Primary Care Provider Specialty: Family Practice Address: [address] [place] [address], [id number] Email: [email or web address] CNM Attending Provider Advanced Tube Heater Referring Provider Specialty: DELI WORKER Address: [address] [place] [address], [address], [address] Email: [email or web address] Plan Of Care PT-OP-T Assessment and Plan Start: 03/18/23 17:50 Freq: Status: Active Protocol: Document 03/26/23 15:07 LRN (Rec: 03/26/23 16:58 LRN [id number]) Physical Therapy Assessment Rehab Potential Rehabilitation Potential Good Evaluation Complexity Number of Personal Factors/Comorbidities 3 or More Number of Body Systems Impaired 4 or More Clinical Presentation at Evaluation Evolving Impairments Impairments Activity Tolerance,Pain, Posture,ROM,Soft Tissue Mobility,Strength,Transfers Goals Four Impairment Low back pain with prolonged standing Short Term Goal (STG) Pt will be able to stabilize her core with MMT of hip extension. STG Duration 6 wks-05/21/23 Long-Term Goal (LTG) Reduce back pain with pt able to manage her pain with core stabilization. LTG Duration 12 wks-06/24/23 Three Impairment Bulge pressure in PF with exercise. Short Term Goal (STG) Education in proper methods for transfer with coordination of breathing. 03/26/23: Pt educated in transfer supine>sit coordinating breathing. STG Duration 2 wks-04/09/23 progressed Software Quality Assurance Specialist Goal (LTG) Decrease feeling of bulge and pressure in PF with exercise. LTG Duration 12 wks-06/24/23 Two Impairment Increased frequency of urination. Impairment Urinary voiding 1-2 more times immediately after voiding throughout the day. Short Term Goal (STG) Decrease frequency that pt needs to void immediately after voiding to 1x/day. STG Duration 6 wks-05/21/23 Software Quality Assurance Specialist Goal (LTG) Decrease freqency of urination to every 2-3 hours. LTG Duration 12 wks-06/24/23 One Impairment Pt lacks appropriate self care HEP. Short Term Goal (STG) Pt will be educated in proper PF contractions, vulvar/ genital care. STG Duration 3 wks-04/16/23 Long-Term Goal (LTG) Pt will be independent with a self care HEP of PF/core strengthening and hip ROM exercises. LTG Duration 12 wks-06/24/23 Assessment Summary Assessment Pt is a 33 yo female who presents with cystocele, rectocele and possible urethrocele. She has frequent urination complaints and LBP since first as well as neck pain. She has obvious weakness of her PF and core, active trigger points (mostly on the left side), poor coordination of breathwork with movments and neck/upper shoulder pain and decreased hip mobility and strength. The pt will benefit from skilled physical therapy to achieve the above stated goals . Her rehabilitation is expected to take longer due to multiple areas of dysfunction (PF, back, neck) that will need to be addressed. Physical Therapy Plan Frequency and Duration Frequency of Treatment 1x/Week Duration of treatment (weeks) 12 Plan of Care Start Date 03/26/23 Plan of Care End Date 06/24/23 Therapeutic Interventions Therapeutic Interventions Home Exercise Program,Joint Mobilizations,Manual Therapy, Neuromuscular Re-education, Self-Care/Home Management,Soft Tissue Mobilization,Taping, Therapeutic Activities, Therapeutic Exercises Modalities Biofeedback,Cold Pack/Ice Massage,Electric Stimulation Next Visit Focus/Plan Next Note Type Treatment Note Next Visit Plan Next: Educated pt in use of Bladder Diary and I/S in tracking for 1 week. Discussed use of 2 different diaries for tracking of bladder & Issue/review HEP: Kegel ex's and discussed exercise of Quick Flicks, Long Holds and Aggravators. POC: Review bladder diary and make recommendation when completed. Sacral balancing & PF trP treatment, abdominal STM; PF (on wedge and lining repairer PF) & hip strengthening; hip IR stretching; EStim of PF & PF Vemg Biofeedback; Education: Deep breathing, proper & isolated PF contractions, vulvar/genital care. Plan of Care Dates Plan of Care Start Date 03/26/23 Plan of Care End Date 06/24/23 Electronically Signed by: Anai Iraheta, PT 03/26/23 0369 If you are in agreement with this Plan of Care, please return a signed and dated copy. I have reviewed this Plan of Care and certify that the skilled therapy services above are required to meet the patient?s needs. Physician Signature Date Printed Name and Credentials Clinical Instructor Signature Printed Name and Credentials
--- NOTE | 2023-04-16 16:07 | PT.OTN ---
Current Diagnoses Cervicalgia (04/16/23) Low back pain, unspecified (04/16/23) Cystocele, unspecified (04/16/23) Retention of urine, unspecified (04/16/23) Physical Therapy Treatment Note PT-OP-A Visit Information Start: 03/18/23 17:50 Freq: Status: Active Protocol: Document 04/16/23 15:06 LRN (Rec: 04/16/23 16:06 LRN [id number]) Out-Patient Physical Therapy Visit Information Visit Information Visit Type Treatment Note Visit Start Time 15:06 Visit Stop Time 15:45 Total Visit Minutes 41 Visit Number 08/07 Evaluation Information Evaluation Date 03/26/23 Precautions Precautions LBP/neck pain. PT-OP-B Current Condition Start: 03/18/23 17:50 Freq: Status: Active Protocol: Document 03/26/23 15:07 LRN (Rec: 03/26/23 16:58 LRN [id number]) Current Condition History of Current Condition Onset Date 2014 Current Complaints High frequency of urination and has PF bulge w/sometimes pressure and LBP History of Current Condition States she has LBP and PF dysfunction after carrying 4 large babies. LBP started after first . Just before her period LBP is severe and pain is present after prolonged standing. States when lying on stomach LB feel like something is dislocating. She complains of high frequency of urination and feeling of bulge and pressure in the PF. Prior Treatments and Tests Pelvic Ultrasound and was told her bladder looked good. Future Testing and Treatments Planned No Developmental History Developmental History 4Gravida, 4Parety: Births: , [birth year]/05/2015, 2018, 08/19/2020 (ages 11, 10, 6 , 4). Treatment Goals Patient/Caregiver Goals Pt goals: Reduce back pain. Decrease feeling of bulge and pressure in PF with exercise. Decrease freqency of urination . Personal Factors Other Personal Factors That May Effect Neck pain/headaches after Therapy/Recovery childbearing, anxiety not controlled by meds. 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 PT-OP-C Subjective Start: 03/18/23 17:50 Freq: Status: Active Protocol: Document 04/16/23 15:06 LRN (Rec: 04/16/23 16:06 LRN [id number]) OP-PT Subjective Patient Comments Patient Comments States she was not given the Bladder Diary or Kegel handout . PT-OP-H Neuro Start: 03/18/23 17:50 Freq: Status: Active Protocol: Document 03/26/23 15:07 LRN (Rec: 03/26/23 16:58 LRN [id number]) Sensation Evaluation Gross Sensation Gross Sensation WNL PT-OP-I Pelvic Floor Start: 03/18/23 17:50 Freq: Status: Active Protocol: Document 03/26/23 15:07 LRN (Rec: 03/26/23 16:58 LRN [id number]) Pelvic Floor Assessment Urine Urinary Symptoms Hesitancy,Dribbling After Urination,Falling Out Feeling/ Heavy Other Urinary Symptoms Has feeling to urinate frequently after first urination. Leakage Size Large Leakage Cause Cough,Exercise,Sneeze Other Leakage Causes Jumping exercise. Leaks Per Day 11-14 Voiding Frequency 6+ Nocturia 2-3 Pads Used In 24 Hours 0 Bowel Bowel Symptoms Constipation Bowel Movement Frequency once every 1-2 days Moody Stool Chart Comments type 2 or 3. Pelvic Clock Pelvic Clock Other Externally: Tender at 2-5 and 7-10 of PF Clock. Internally: Tender at 2-5 of PF clock. Hardened, ruggae type tissue 10-11 PF Clock. Prolapse Cystocele Grade 2 Rectocele Grade 2 Perineal Descent Resting Absent Bearing Present Contraction Ability Voluntary Contraction Weak Voluntary Relaxation Absent Manual Muscle Testing Left 1 Manual Muscle Testing Right 0 Manual Muscle Testing Anterior 0 Manual Muscle Testing Posterior 0 Muscle Endurance (Seconds) 1 Number of Quick Contractions In 10 1 Seconds PT-OP-J Posture/Palpation/Skin Start: 03/18/23 17:50 Freq: Status: Active Protocol: Document 03/26/23 15:07 LRN (Rec: 03/26/23 16:58 LRN [id number]) Posture Evaluation Position Standing T-Spine Posture Flattened L-Spine Posture Increased Lordosis Shoulder Posture Neutral Pelvis Posture Anteriorly Tilted Comments Posture Comments R PSIS is high and slightly posterior, L4-L5 angled left. Palpation Assessment Location Neck pain Palpation Location Cervical paraspinals and bilateral UT's Palpation Findings Soft Tissue Tightness, Tenderness Low Back Palpation Location L4-L5 and sacrum Palpation Details Standing: No tenderness, but location above is where her reported pain is with prolonged standing or before menstration. Prone: Tenderness with PA pressure. PT-OP-K Range of Motion Start: 03/18/23 17:50 Freq: Status: Active Protocol: Document 03/26/23 15:07 LRN (Rec: 03/26/23 16:58 LRN [id number]) Lumbar Spine Range of Motion Lumbar Spine Active Degrees Testing Position Standing Flexion 110 Extension 30 Rotation Left 30 Rotation Right 30 Lateral Flexion Left 25 Lateral Flexion Right 20 Comments Trunk AROM: Flexion is 110 deg?s with 60 deg?s hip flexion, Trunk extension is 30 deg?s with 20 deg?s hip extension. Hip Goniometric Range of Motion Hip Right Passive Testing Position Supine Internal Rotation 40 External Rotation 70 Left Passive Testing Position Supine Internal Rotation 35 External Rotation 70 PT-OP-L Special Tests Start: 03/18/23 17:50 Freq: Status: Active Protocol: Document 03/26/23 15:07 LRN (Rec: 03/26/23 16:58 LRN [id number]) Special Tests Lumbar Spine Special Tests Straight Leg Raise Test Results - bilaterally PT-OP-M Strength Start: 03/18/23 17:50 Freq: Status: Active Protocol: Document 03/26/23 15:07 LRN (Rec: 03/26/23 16:58 LRN [id number]) Trunk Strength Trunk Manual Muscle Testing Core Stabilization Loss of core rotational stability with MMT of hip ext. Hip Strength Hip Manual Muscle Testing Right Comments Strength is 5/5 Left Flexion (L2) 4 Good External Rotation 4+ Good+ Comments Strength is 5/5 except as indicated above PT-OP-Q Treatments Start: 03/18/23 17:50 Freq: Status: Active Protocol: Document 04/16/23 15:06 LRN (Rec: 04/16/23 16:06 LRN [id number]) Therapeutic Exercises Supine Exercises PF/TBAnd Supine Exercise Name PF></TBand BKFO Reps/Minutes 5' Comments Cuing to not hold breath w/ex and for 1 & 10 holds PF/Ball Supine Exercise Name PF></Ball Squeeze-Quick & Long Holds Reps/Minutes 5' Comments Cuing to not hold breath w/ex and for 1 & 10 holds PF Long Hold >< Supine Exercise Name PF Long Hold contractions Reps/Minutes 5' Comments Cuing to not hold breath w/ex and for 10 holds PF Quick >< Supine Exercise Name PF Quick contractions Reps/Minutes 3' Comments Cuing to not hold breath w/ex and for 1 holds PF isolated Supine Exercise Name PF in isolation of substitute ms. Reps/Minutes 5' Comments Cuing to isolate substitute ms . Deep Breathing Supine Exercise Name Deep breathing Reps/Minutes 10' Comments Cuing for movement at lower rib/abdomen Manual Therapy Treatment Soft Tissue Mobilization PF stretch Body Location PF around the clock; external L side stretch. Body Position Hooklying Comments Pt found to not require internal PF stretch. Self-Care/Home Management Treatment Education Patient Education Home Exercise Program Other Education Educated pt in use of Bladder Diary and I/S in tracking for 1 week. Discussed use of 2 different diaries for tracking of bladder & Issue/review. Activities Self-Care/Home Management Activities Issued & reviewed Kegel ex's ( Quick & Long Holds) and with Aggrevator contractions. PT-OP-T Assessment and Plan Start: 03/18/23 17:50 Freq: Status: Active Protocol: Document 04/16/23 15:06 LRN (Rec: 04/16/23 16:06 LRN [id number]) Physical Therapy Assessment Goals Four Impairment Low back pain with prolonged standing Short Term Goal (STG) Pt will be able to stabilize her core with MMT of hip extension. STG Duration 6 wks-05/21/23 Personal Security Specialist Goal (LTG) Reduce back pain with pt able to manage her pain with core stabilization. LTG Duration 12 wks-06/24/23 Three Impairment Bulge pressure in PF with exercise. Short Term Goal (STG) Education in proper methods for transfer with coordination of breathing. 03/26/23: Pt educated in transfer supine>sit coordinating breathing. 04/16/23: Pt educated in transfers sit<>sup<>stand coordinating breathing. STG Duration 2 wks-04/09/23 (04/16/23: MET GOAL) Personal Security Specialist Goal (LTG) Decrease feeling of bulge and pressure in PF with exercise. LTG Duration 12 wks-06/24/23 Two Impairment Increased frequency of urination. Impairment Urinary voiding 1-2 more times immediately after voiding throughout the day. Short Term Goal (STG) Decrease frequency that pt needs to void immediately after voiding to 1x/day. STG Duration 6 wks-05/21/23 Residential Goal (LTG) Decrease freqency of urination to every 2-3 hours. LTG Duration 12 wks-06/24/23 One Impairment Pt lacks appropriate self care HEP. Short Term Goal (STG) Pt will be educated in proper PF contractions, vulvar/ genital care. 04/16/23: Pt educated in Kegels. STG Duration 3 wks-04/16/23 progressed 04/16 (need vulvar/genital care) Residential Goal (LTG) Pt will be independent with a self care HEP of PF/core strengthening and hip ROM exercises. LTG Duration 12 wks-06/24/23 Assessment Summary Assessment Pt presents with cystocele, rectocele and possible urethrocele. She has frequent urination, PF bulge/sometimes pressure, and LBP. Today, no PF tenderness, but ruggae type tissue 10-11 PF Clock. Pt is able to contract her PF in isolation of substitute ms, but is not sure she is performing the contraction correctly. She was at the end of her period; therefore will try Vemg biofeedback and awareness training later. Physical Therapy Plan Frequency and Duration Frequency of Treatment 1x/Week Duration of treatment (weeks) 12 Plan of Care Start Date 03/26/23 Plan of Care End Date 06/24/23 Next Visit Focus/Plan Next Note Type Treatment Note Next Visit Plan POC: Review bladder diary and make recommendation when completed. Next: EStim of PF & PF Vemg Biofeedback; Sacral balancing & LB/neck therapy; Ex's: PF (on wedge and silver solution mixer PF) & hip strengthening; hip IR stretching; Education: vulvar/genital care. Mobilization: abdomen
--- NOTE | 2023-04-23 16:27 | PT.OTN ---
Current Diagnoses Cervicalgia (04/23/23) Low back pain, unspecified (04/23/23) Cystocele, unspecified (04/23/23) Retention of urine, unspecified (04/23/23) Physical Therapy Treatment Note PT-OP-A Visit Information Start: 03/18/23 17:50 Freq: Status: Active Protocol: Document 04/23/23 15:06 LRN (Rec: 04/23/23 16:25 LRN [id number]) Out-Patient Physical Therapy Visit Information Visit Information Visit Type Treatment Note Visit Start Time 15:06 Visit Stop Time 15:53 Total Visit Minutes 47 Visit Number 09/04 Evaluation Information Evaluation Date 03/26/23 Precautions Precautions LBP/neck pain. Wgt is 157# PT-OP-B Current Condition Start: 03/18/23 17:50 Freq: Status: Active Protocol: Document 03/26/23 15:07 LRN (Rec: 03/26/23 16:58 LRN [id number]) Current Condition History of Current Condition Onset Date 2014 Current Complaints High frequency of urination and has PF bulge w/sometimes pressure and LBP History of Current Condition States she has LBP and PF dysfunction after carrying 4 large babies. LBP started after first . Just before her period LBP is severe and pain is present after prolonged standing. States when lying on stomach LB feel like something is dislocating. She complains of high frequency of urination and feeling of bulge and pressure in the PF. Prior Treatments and Tests Pelvic Ultrasound and was told her bladder looked good. Future Testing and Treatments Planned No Developmental History Developmental History 4Gravida, 4Parety: Births: , [birth year]/2015, 2016, 08/19/2020 (ages 11, 10, 6 , 4). Treatment Goals Patient/Caregiver Goals Pt goals: Reduce back pain. Decrease feeling of bulge and pressure in PF with exercise. Decrease freqency of urination . Personal Factors Other Personal Factors That May Effect Neck pain/headaches after Therapy/Recovery childbearing, anxiety not controlled by meds. 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 PT-OP-C Subjective Start: 03/18/23 17:50 Freq: Status: Active Protocol: Document 04/23/23 15:06 LRN (Rec: 04/23/23 16:27 LRN [id number]) OP-PT Subjective Patient Comments Patient Comments Did bladder diary. PT-OP-H Neuro Start: 03/18/23 17:50 Freq: Status: Active Protocol: Document 03/26/23 15:07 LRN (Rec: 03/26/23 16:58 LRN [id number]) Sensation Evaluation Gross Sensation Gross Sensation WNL PT-OP-I Pelvic Floor Start: 03/18/23 17:50 Freq: Status: Active Protocol: Document 04/23/23 15:06 LRN (Rec: 04/23/23 16:25 LRN [id number]) Pelvic Floor Assessment SEMG (uV) Baseline 1.4 Quick Contraction 5.8 10 Second Contraction 7.7 Recruitment Pattern Good Relaxation Fair Holding Poor/Slow Stability of Hold Poor/Slow SEMG Stability of Rest Poor/Slow Comments Pelvic Floor Comments Quick Flicks: 10 reps strength (uV's): avg work 5.5, avg rest 3.8. 20 reps strength (uV's): avg work 5.8, avg rest 3.8. Long Holds: 10 reps strength (uV's): avg work 7.7, avg rest 4.0. 20 reps strength (uV's): avg work 7.3, avg rest 3.8. PT-OP-J Posture/Palpation/Skin Start: 03/18/23 17:50 Freq: Status: Active Protocol: Document 03/26/23 15:07 LRN (Rec: 03/26/23 16:58 LRN [id number]) Posture Evaluation Position Standing T-Spine Posture Flattened L-Spine Posture Increased Lordosis Shoulder Posture Neutral Pelvis Posture Anteriorly Tilted Comments Posture Comments R PSIS is high and slightly posterior, L4-L5 angled left. Palpation Assessment Location Neck pain Palpation Location Cervical paraspinals and bilateral UT's Palpation Findings Soft Tissue Tightness, Tenderness Low Back Palpation Location L4-L5 and sacrum Palpation Details Standing: No tenderness, but location above is where her reported pain is with prolonged standing or before menstration. Prone: Tenderness with PA pressure. PT-OP-K Range of Motion Start: 03/18/23 17:50 Freq: Status: Active Protocol: Document 03/26/23 15:07 LRN (Rec: 03/26/23 16:58 LRN [id number]) Lumbar Spine Range of Motion Lumbar Spine Active Degrees Testing Position Standing Flexion 110 Extension 30 Rotation Left 30 Rotation Right 30 Lateral Flexion Left 25 Lateral Flexion Right 20 Comments Trunk AROM: Flexion is 110 deg?s with 60 deg?s hip flexion, Trunk extension is 30 deg?s with 20 deg?s hip extension. Hip Goniometric Range of Motion Hip Right Passive Testing Position Supine Internal Rotation 40 External Rotation 70 Left Passive Testing Position Supine Internal Rotation 35 External Rotation 70 PT-OP-L Special Tests Start: 03/18/23 17:50 Freq: Status: Active Protocol: Document 03/26/23 15:07 LRN (Rec: 03/26/23 16:58 LRN [id number]) Special Tests Lumbar Spine Special Tests Straight Leg Raise Test Results - bilaterally PT-OP-M Strength Start: 03/18/23 17:50 Freq: Status: Active Protocol: Document 03/26/23 15:07 LRN (Rec: 03/26/23 16:58 LRN [id number]) Trunk Strength Trunk Manual Muscle Testing Core Stabilization Loss of core rotational stability with MMT of hip ext. Hip Strength Hip Manual Muscle Testing Right Comments Strength is 5/5 Left Flexion (L2) 4 Good External Rotation 4+ Good+ Comments Strength is 5/5 except as indicated above PT-OP-Q Treatments Start: 03/18/23 17:50 Freq: Status: Active Protocol: Document 04/23/23 15:06 LRN (Rec: 04/23/23 16:25 LRN [id number]) Therapeutic Exercises Supine Exercises BM massage Supine Exercise Name BM massage - educ for self treat and PT giving massage Reps/Minutes 8' Comments v cuing throughout treatment PF Long Hold >< Supine Exercise Name PF Long Hold >< Reps/Minutes 10 sec hold (SH)/10 sec rest ( SR) x 20 Comments Cuing to isolate PF PF Quick >< Supine Exercise Name PF Quick >< Reps/Minutes 2 SH/2 SR 20 reps x 2 Comments Cuing to isolate PF, 2nd set with recheck of Vemg positioning Neuro Re-Education Treatment Other Activities PF resting awareness Details PF resting awareness w/ biofeedback Reps/Duration 8' Comments Vemg adjusted after initial assessment for 2 checks on PF resting tone. Self-Care/Home Management Treatment Education Patient Education Home Exercise Program Other Education Reviewed Bladder dairy and discussed fluid intake (AM/PM) , bowel movement frequency, urination times expected. Discussed results of PF Vemg assessment. Issued & reviewed bowel program with discussion of recommendations for program per handout. Pt to discuss with primary care physician use of magnesium before implementing. Activities Self-Care/Home Management Activities Instructed (I/S) pt in HEP: Abdominal stretching with [place] positioning. PT-OP-T Assessment and Plan Start: 03/18/23 17:50 Freq: Status: Active Protocol: Document 04/23/23 15:06 LRN (Rec: 04/23/23 16:25 LRN [id number]) Physical Therapy Assessment Goals Four Impairment Low back pain with prolonged standing Short Term Goal (STG) Pt will be able to stabilize her core with MMT of hip extension. STG Duration 6 wks-05/21/23 Surgical Nurse Goal (LTG) Reduce back pain with pt able to manage her pain with core stabilization. LTG Duration 12 wks-06/24/23 Three Impairment Bulge pressure in PF with exercise. Short Term Goal (STG) Education in proper methods for transfer with coordination of breathing. 03/26/23: Pt educated in transfer supine>sit coordinating breathing. 04/16/23: Pt educated in transfers sit<>sup<>stand coordinating breathing. STG Duration 2 wks-04/09/23 (04/16/23: MET GOAL) [facility] Goal (LTG) Decrease feeling of bulge and pressure in PF with exercise. LTG Duration 12 wks-06/24/23 Two Impairment Increased frequency of urination. Impairment Urinary voiding 1-2 more times immediately after voiding throughout the day. Short Term Goal (STG) Decrease frequency that pt needs to void immediately after voiding to 1x/day. STG Duration 6 wks-05/21/23 [facility] Goal (LTG) Decrease freqency of urination to every 2-3 hours. LTG Duration 12 wks-06/24/23 One Impairment Pt lacks appropriate self care HEP. Short Term Goal (STG) Pt will be educated in proper PF contractions, vulvar/ genital care. 04/16/23: Pt educated in Kegels. STG Duration 3 wks-04/16/23 progressed 04/16 (need vulvar/genital care) [facility] Goal (LTG) Pt will be independent with a self care HEP of PF/core strengthening and hip ROM exercises. LTG Duration 12 wks-06/24/23 Assessment Summary Assessment Per Vemg biofeedback, poor stability of contraction hold and resting. Good strength of contraction, poor relaxation. Pt breathing increases PF tone indicating possible abdominal tightness. Physical Therapy Plan Frequency and Duration Frequency of Treatment 1x/Week Duration of treatment (weeks) 12 Plan of Care Start Date 03/26/23 Plan of Care End Date 06/24/23 Next Visit Focus/Plan Next Note Type Treatment Note Next Visit Plan Next: Pt to complet NDI. EStim of PF for awareness training of proper PF contraction; Manual: Sacral balancing & LB /neck therapy; Ex's: PF (on wedge and policy service coordinator PF) & hip strengthening; hip IR stretching; Education: vulvar/genital care. Mobilization: abdomen
--- NOTE | 2023-04-30 14:36 | PT-OP ANOTE ---
left by phone notifying pt of missed appt and reminded pt of CX/DNS policy. Notified pt of next appt 05/17/23, but noted openings on 05/04, that may be open for pt to be seen, she needs to call to schedule if available.
--- NOTE | 2023-05-04 16:40 | PT.OTN ---
Current Diagnoses Cervicalgia (05/04/23) Low back pain, unspecified (05/04/23) Cystocele, unspecified (05/04/23) Retention of urine, unspecified (05/04/23) Physical Therapy Treatment Note PT-OP-A Visit Information Start: 03/18/23 17:50 Freq: Status: Active Protocol: Document 05/04/23 15:17 LRN (Rec: 05/04/23 16:39 LRN [id number]) Out-Patient Physical Therapy Visit Information Visit Information Visit Type Treatment Note Visit Start Time 15:17 Visit Stop Time 16:00 Total Visit Minutes 43 Visit Number 10/05 Evaluation Information Evaluation Date 03/26/23 Precautions Precautions LBP/neck pain. Wgt is 157# PT-OP-B Current Condition Start: 03/18/23 17:50 Freq: Status: Active Protocol: Document 03/26/23 15:07 LRN (Rec: 03/26/23 16:58 LRN [id number]) Current Condition History of Current Condition Onset Date 2014 Current Complaints High frequency of urination and has PF bulge w/sometimes pressure and LBP History of Current Condition States she has LBP and PF dysfunction after carrying 4 large babies. LBP started after first . Just before her period LBP is severe and pain is present after prolonged standing. States when lying on stomach LB feel like something is dislocating. She complains of high frequency of urination and feeling of bulge and pressure in the PF. Prior Treatments and Tests Pelvic Ultrasound and was told her bladder looked good. Future Testing and Treatments Planned No Developmental History Developmental History 4Gravida, 4Parety: Births: , 11/05/2013, 2016, 08/19/2018 (ages 11, 10, 6 , 4). Treatment Goals Patient/Caregiver Goals Pt goals: Reduce back pain. Decrease feeling of bulge and pressure in PF with exercise. Decrease freqency of urination . Personal Factors Other Personal Factors That May Effect Neck pain/headaches after Therapy/Recovery childbearing, anxiety not controlled by meds. 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 PT-OP-C Subjective Start: 03/18/23 17:50 Freq: Status: Active Protocol: Document 05/04/23 15:17 LRN (Rec: 05/04/23 16:39 LRN [id number]) OP-PT Subjective Patient Comments Patient Comments Lower back is always having pain. Didn't have to do too much Bowel massage. Having a BM daily. Today BM was type 4. LBP rated 5/10. Patient Questionnaires Neck Disability Index NDI Score 13 Neck Disability Index Impairment 20 to 39% Impaired (Score 10- 19) PT-OP-H Neuro Start: 03/18/23 17:50 Freq: Status: Active Protocol: Document 03/26/23 15:07 LRN (Rec: 03/26/23 16:58 LRN [id number]) Sensation Evaluation Gross Sensation Gross Sensation WNL PT-OP-I Pelvic Floor Start: 03/18/23 17:50 Freq: Status: Active Protocol: Document 04/23/23 15:06 LRN (Rec: 04/23/23 16:25 LRN [id number]) Pelvic Floor Assessment SEMG (uV) Baseline 1.4 Quick Contraction 5.8 10 Second Contraction 7.7 Recruitment Pattern Good Relaxation Fair Holding Poor/Slow Stability of Hold Poor/Slow SEMG Stability of Rest Poor/Slow Comments Pelvic Floor Comments Quick Flicks: 10 reps strength (uV's): avg work 5.5, avg rest 3.8. 20 reps strength (uV's): avg work 5.8, avg rest 3.8. Long Holds: 10 reps strength (uV's): avg work 7.7, avg rest 4.0. 20 reps strength (uV's): avg work 7.3, avg rest 3.8. PT-OP-J Posture/Palpation/Skin Start: 03/18/23 17:50 Freq: Status: Active Protocol: Document 03/26/23 15:07 LRN (Rec: 03/26/23 16:58 LRN [id number]) Posture Evaluation Position Standing T-Spine Posture Flattened L-Spine Posture Increased Lordosis Shoulder Posture Neutral Pelvis Posture Anteriorly Tilted Comments Posture Comments R PSIS is high and slightly posterior, L4-L5 angled left. Palpation Assessment Location Neck pain Palpation Location Cervical paraspinals and bilateral UT's Palpation Findings Soft Tissue Tightness, Tenderness Low Back Palpation Location L4-L5 and sacrum Palpation Details Standing: No tenderness, but location above is where her reported pain is with prolonged standing or before menstration. Prone: Tenderness with PA pressure. PT-OP-K Range of Motion Start: 10/05/23 17:50 Freq: Status: Active Protocol: Document 03/26/23 15:07 LRN (Rec: 03/26/23 16:58 LRN [id number]) Lumbar Spine Range of Motion Lumbar Spine Active Degrees Testing Position Standing Flexion 110 Extension 30 Rotation Left 30 Rotation Right 30 Lateral Flexion Left 25 Lateral Flexion Right 20 Comments Trunk AROM: Flexion is 110 deg?s with 60 deg?s hip flexion, Trunk extension is 30 deg?s with 20 deg?s hip extension. Hip Goniometric Range of Motion Hip Right Passive Testing Position Supine Internal Rotation 40 External Rotation 70 Left Passive Testing Position Supine Internal Rotation 35 External Rotation 70 PT-OP-L Special Tests Start: 03/18/23 17:50 Freq: Status: Active Protocol: Document 03/26/23 15:07 LRN (Rec: 03/26/23 16:58 LRN [id number]) Special Tests Lumbar Spine Special Tests Straight Leg Raise Test Results - bilaterally PT-OP-M Strength Start: 03/18/23 17:50 Freq: Status: Active Protocol: Document 03/26/23 15:07 LRN (Rec: 03/26/23 16:58 LRN [id number]) Trunk Strength Trunk Manual Muscle Testing Core Stabilization Loss of core rotational stability with MMT of hip ext. Hip Strength Hip Manual Muscle Testing Right Comments Strength is 5/5 Left Flexion (L2) 4 Good External Rotation 4+ Good+ Comments Strength is 5/5 except as indicated above PT-OP-Q Treatments Start: 03/18/23 17:50 Freq: Status: Active Protocol: Document 05/04/23 15:17 LRN (Rec: 05/04/23 16:39 LRN [id number]) Manual Therapy Treatment Soft Tissue Mobilization Sacral Balancing Body Location Sacral Balancing. Mobilization Type Sustained Pressure Body Position Prone Comments Sacral Balancing L Sacral Sulcus PA R sacral shear R SIMBA - PA R Ischial Tub - PA 6 pt balancing R Iliopsoas release Pubic Rami R superior glide Self-Care/Home Management Treatment Education Other Education Educated in vulvar/genital care. Activities Self-Care/Home Management Activities Issued handout for vulvar & genital care. Issued HEP handout w/brief review of [place] for abdominal stretch. PT-OP-T Assessment and Plan Start: 03/18/23 17:50 Freq: Status: Active Protocol: Document 05/04/23 15:17 LRN (Rec: 05/04/23 16:39 LRN [id number]) Physical Therapy Assessment Goals Four Impairment Low back pain with prolonged standing Short Term Goal (STG) Pt will be able to stabilize her core with MMT of hip extension. STG Duration 6 wks-05/21/23 Jail Goal (LTG) Reduce back pain with pt able to manage her pain with core stabilization. LTG Duration 12 wks-06/24/23 Three Impairment Bulge pressure in PF with exercise. Short Term Goal (STG) Education in proper methods for transfer with coordination of breathing. 03/26/23: Pt educated in transfer supine>sit coordinating breathing. 04/16/23: Pt educated in transfers sit<>sup<>stand coordinating breathing. STG Duration 2 wks-04/09/23 (04/16/23: MET GOAL) Jail Goal (LTG) Decrease feeling of bulge and pressure in PF with exercise. 05/04/23: Started period this week, so having pelvic pain. LTG Duration 12 wks-06/24/23 Two Impairment Increased frequency of urination. Impairment Urinary voiding 1-2 more times immediately after voiding throughout the day. Short Term Goal (STG) Decrease frequency that pt needs to void immediately after voiding to 1x/day. 05/04/23: Sometimes has to void immediately after voiding at night. STG Duration 6 wks-05/21/23 Jail Goal (LTG) Decrease freqency of urination to every 2-3 hours. LTG Duration 12 wks-06/24/23 One Impairment Pt lacks appropriate self care HEP. Short Term Goal (STG) Pt will be educated in proper PF contractions, vulvar/ genital care. 04/16/23: Pt educated in Kegels. 05/04/23: Pt educated in vulvar and genital care. STG Duration 3 wks-04/16/23 (05/04/23: MET GOAL) Jail Goal (LTG) Pt will be independent with a self care HEP of PF/core strengthening and hip ROM exercises. 05/04/23: Issued HEP: [place] stretch to abdomen. LTG Duration 12 wks-06/24/23 progressed 05/04/23 Assessment Summary Assessment Pt with cystocele, rectocele and possible urethrocele on eval. Initially she had increased urinary voiding, LBP and neck pain, PF/core weakness, active trigger points (mostly on the left side), and decreased hip mobility and strength. She has improved her bowel movements to daily and he last BM was type 4. She has poor recall of coordination of breathwork with movments. I was not able to fully balance her sacrum with poor release of R Ischial Tub on PA glide, but other areas with good release. No significant change in LBP after treatment. Abdominal pain with her period might have made it hard for pt to relax for PF ms release. NDI questionnaire indicates neck is 20-39% impaired. Physical Therapy Plan Frequency and Duration Frequency of Treatment 1x/Week Duration of treatment (weeks) 12 Plan of Care Start Date 03/26/23 Plan of Care End Date 06/24/23 Next Visit Focus/Plan Next Note Type Treatment Note Next Visit Plan Next: Assess response to Sacral balancing. Add EStim of PF for awareness training of proper PF contraction & Review/training for transfer with coordination of breathing (relax of PF). Abdominal mobs and hip flexor stretching . After stim might need PF stretching if increase in # of voids. Manual: LB/neck therapy; Ex's: hip IR/AD stretching; PF (on wedge and dealer compliance representative PF) & hip strengthening; Mobilization: abdomen
--- NOTE | 2023-05-17 15:45 | PT.OTN ---
Current Diagnoses Cervicalgia (05/17/23) Low back pain, unspecified (05/17/23) Cystocele, unspecified (05/17/23) Retention of urine, unspecified (05/17/23) Physical Therapy Treatment Note PT-OP-A Visit Information Start: 03/18/23 17:50 Freq: Status: Active Protocol: Document 05/17/23 14:40 LRN (Rec: 05/17/23 15:15 LRN [id number]) Out-Patient Physical Therapy Visit Information Visit Information Visit Type Treatment Note Visit Start Time 14:40 Visit Stop Time 15:18 Total Visit Minutes 38 Visit Number 11/04 Evaluation Information Evaluation Date 03/26/23 Precautions Precautions LBP/neck pain. Wgt is 157# PT-OP-B Current Condition Start: 03/18/23 17:50 Freq: Status: Active Protocol: Document 03/26/23 15:07 LRN (Rec: 03/26/23 16:58 LRN [id number]) Current Condition History of Current Condition Onset Date 2014 Current Complaints High frequency of urination and has PF bulge w/sometimes pressure and LBP History of Current Condition States she has LBP and PF dysfunction after carrying 4 large babies. LBP started after first . Just before her period LBP is severe and pain is present after prolonged standing. States when lying on stomach LB feel like something is dislocating. She complains of high frequency of urination and feeling of bulge and pressure in the PF. Prior Treatments and Tests Pelvic Ultrasound and was told her bladder looked good. Future Testing and Treatments Planned No Developmental History Developmental History 4Gravida, 4Parety: Births: , 11/05/2013, 2016, [birth year]2020 (ages 11, 10, 6 , 4). Treatment Goals Patient/Caregiver Goals Pt goals: Reduce back pain. Decrease feeling of bulge and pressure in PF with exercise. Decrease freqency of urination . Personal Factors Other Personal Factors That May Effect Neck pain/headaches after Therapy/Recovery childbearing, anxiety not controlled by meds. 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 PT-OP-C Subjective Start: 03/18/23 17:50 Freq: Status: Active Protocol: Document 05/17/23 14:40 LRN (Rec: 05/17/23 15:15 LRN [id number]) OP-PT Subjective Patient Comments Patient Comments States she had more back pain 1 day after last session and increased neck tension headaches. PT-OP-H Neuro Start: 03/18/23 17:50 Freq: Status: Active Protocol: Document 03/26/23 15:07 LRN (Rec: 03/26/23 16:58 LRN [id number]) Sensation Evaluation Gross Sensation Gross Sensation WNL PT-OP-I Pelvic Floor Start: 03/18/23 17:50 Freq: Status: Active Protocol: Document 04/23/23 15:06 LRN (Rec: 04/23/23 16:25 LRN [id number]) Pelvic Floor Assessment SEMG (uV) Baseline 1.4 Quick Contraction 5.8 10 Second Contraction 7.7 Recruitment Pattern Good Relaxation Fair Holding Poor/Slow Stability of Hold Poor/Slow SEMG Stability of Rest Poor/Slow Comments Pelvic Floor Comments Quick Flicks: 10 reps strength (uV's): avg work 5.5, avg rest 3.8. 20 reps strength (uV's): avg work 5.8, avg rest 3.8. Long Holds: 10 reps strength (uV's): avg work 7.7, avg rest 4.0. 20 reps strength (uV's): avg work 7.3, avg rest 3.8. PT-OP-J Posture/Palpation/Skin Start: 03/18/23 17:50 Freq: Status: Active Protocol: Document 03/26/23 15:07 LRN (Rec: 03/26/23 16:58 LRN [id number]) Posture Evaluation Position Standing T-Spine Posture Flattened L-Spine Posture Increased Lordosis Shoulder Posture Neutral Pelvis Posture Anteriorly Tilted Comments Posture Comments R PSIS is high and slightly posterior, L4-L5 angled left. Palpation Assessment Location Neck pain Palpation Location Cervical paraspinals and bilateral UT's Palpation Findings Soft Tissue Tightness, Tenderness Low Back Palpation Location L4-L5 and sacrum Palpation Details Standing: No tenderness, but location above is where her reported pain is with prolonged standing or before menstration. Prone: Tenderness with PA pressure. PT-OP-K Range of Motion Start: 03/18/23 17:50 Freq: Status: Active Protocol: Document 03/26/23 15:07 LRN (Rec: 03/26/23 16:58 LRN [id number]) Lumbar Spine Range of Motion Lumbar Spine Active Degrees Testing Position Standing Flexion 110 Extension 30 Rotation Left 30 Rotation Right 30 Lateral Flexion Left 25 Lateral Flexion Right 20 Comments Trunk AROM: Flexion is 110 deg?s with 60 deg?s hip flexion, Trunk extension is 30 deg?s with 20 deg?s hip extension. Hip Goniometric Range of Motion Hip Right Passive Testing Position Supine Internal Rotation 40 External Rotation 70 Left Passive Testing Position Supine Internal Rotation 35 External Rotation 70 PT-OP-L Special Tests Start: 03/18/23 17:50 Freq: Status: Active Protocol: Document 03/26/23 15:07 LRN (Rec: 03/26/23 16:58 LRN [id number]) Special Tests Lumbar Spine Special Tests Straight Leg Raise Test Results - bilaterally PT-OP-M Strength Start: 03/18/23 17:50 Freq: Status: Active Protocol: Document 03/26/23 15:07 LRN (Rec: 03/26/23 16:58 LRN [id number]) Trunk Strength Trunk Manual Muscle Testing Core Stabilization Loss of core rotational stability with MMT of hip ext. Hip Strength Hip Manual Muscle Testing Right Comments Strength is 5/5 Left Flexion (L2) 4 Good External Rotation 4+ Good+ Comments Strength is 5/5 except as indicated above PT-OP-Q Treatments Start: 03/18/23 17:50 Freq: Status: Active Protocol: Document 05/17/23 14:40 LRN (Rec: 05/17/23 15:15 LRN [id number]) Manual Therapy Treatment Soft Tissue Mobilization Neck/UT/midback Body Location R neck/UT/rhomboids Mobilization Type Strumming,Sustained Pressure Intensity/Depth Moderate Body Position Prone Comments Tight in R: C/S paraspinals, UT, Rhomboids that was not fully relaxed. Neuro Re-Education Treatment Other Activities PF awareness training Details Vemg stim for PF contraction awareness training and PF contractions Reps/Duration 10' EStim, Comments 7' Extra time for set up & to determine max tolerated stim for PF contraction. Self-Care/Home Management Treatment Activities Self-Care/Home Management Activities Issued HO for bed mobility transfer using breathwork to minimize inner core pressure increase. PT-OP-T Assessment and Plan Start: 03/18/23 17:50 Freq: Status: Active Protocol: Document 05/17/23 14:40 LRN (Rec: 05/17/23 15:15 LRN [id number]) Physical Therapy Assessment Goals Four Impairment Low back pain with prolonged standing Short Term Goal (STG) Pt will be able to stabilize her core with MMT of hip extension. STG Duration 6 wks-05/21/23 Correction Goal (LTG) Reduce back pain with pt able to manage her pain with core stabilization. LTG Duration 12 wks-06/24/23 Three Impairment Bulge pressure in PF with exercise. Short Term Goal (STG) Education in proper methods for transfer with coordination of breathing. 03/26/23: Pt educated in transfer supine>sit coordinating breathing. 04/16/23: Pt educated in transfers sit<>sup<>stand coordinating breathing. STG Duration 2 wks-04/09/23 (04/16/23: MET GOAL) Ice Cream Maker Goal (LTG) Decrease feeling of bulge and pressure in PF with exercise. 05/04/23: Started period this week, so having pelvic pain. LTG Duration 12 wks-06/24/23 Two Impairment Increased frequency of urination. Impairment Urinary voiding 1-2 more times immediately after voiding throughout the day. Short Term Goal (STG) Decrease frequency that pt needs to void immediately after voiding to 1x/day. 05/04/23: Sometimes has to void immediately after voiding at night. STG Duration 6 wks-05/21/23 Ice Cream Maker Goal (LTG) Decrease freqency of urination to every 2-3 hours. LTG Duration 12 wks-06/24/23 One Impairment Pt lacks appropriate self care HEP. Short Term Goal (STG) Pt will be educated in proper PF contractions, vulvar/ genital care. 04/16/23: Pt educated in Kegels. 05/04/23: Pt educated in vulvar and genital care. STG Duration 3 wks-04/16/23 (05/04/23: MET GOAL) Correction Goal (LTG) Pt will be independent with a self care HEP of PF/core strengthening and hip ROM exercises. 05/04/23: Issued HEP: [place] stretch to abdomen. LTG Duration 12 wks-06/24/23 progressed 05/04/23 Assessment Summary Assessment Pt with cystocele, rectocele and possible urethrocele with PF/core weakness & L>R sided active trP's. LBP is back to its normal dull ache; therefore no LBP change with sacral balancing. Neck pain is constant w/R side tension that is normal. Pt fearful of EStim for PF training, but did note PF contraction @ intensity of 15. Pt needs to monitor for decr'd urinary (or incr'd) voiding and for decr' d voiding immediately after voiding this next week. Physical Therapy Plan Frequency and Duration Frequency of Treatment 1x/Week Duration of treatment (weeks) 12 Plan of Care Start Date 03/26/23 Plan of Care End Date 06/24/23 Next Visit Focus/Plan Next Note Type Treatment Note Next Visit Plan Next: Assess response to EStim of PF for awareness training of proper PF contraction. After stim might need PF stretching if increase in # of voids. Review/training for transfer with coordination of breathing (relax of PF). Next: Abdominal mobs and hip flexor stretching & check hip AD tightness. Progress PF strengthening to decrease feeling of bulge and PF pressure. Manual: Balance sacrum, LB/ neck therapy. Ex's: hip IR/AD stretching; PF (on wedge and high school coach PF) & hip strengthening.
--- NOTE | 2023-05-24 15:54 | PT.OTN ---
Current Diagnoses Cervicalgia (05/24/23) Low back pain, unspecified (05/24/23) Cystocele, unspecified (05/24/23) Retention of urine, unspecified (05/24/23) Physical Therapy Treatment Note PT-OP-A Visit Information Start: 03/18/23 17:50 Freq: Status: Active Protocol: Document 05/24/23 14:35 LRN (Rec: 05/24/23 15:53 LRN [id number]) Out-Patient Physical Therapy Visit Information Visit Information Visit Type Treatment Note Visit Start Time 14:35 Visit Stop Time 15:15 Total Visit Minutes 40 Visit Number 12/05 Evaluation Information Evaluation Date 03/26/23 Precautions Precautions LBP/neck pain. Wgt is 157# PT-OP-B Current Condition Start: 03/18/23 17:50 Freq: Status: Active Protocol: Document 03/26/23 15:07 LRN (Rec: 03/26/23 16:58 LRN [id number]) Current Condition History of Current Condition Onset Date 2014 Current Complaints High frequency of urination and has PF bulge w/sometimes pressure and LBP History of Current Condition States she has LBP and PF dysfunction after carrying 4 large babies. LBP started after first . Just before her period LBP is severe and pain is present after prolonged standing. States when lying on stomach LB feel like something is dislocating. She complains of high frequency of urination and feeling of bulge and pressure in the PF. Prior Treatments and Tests Pelvic Ultrasound and was told her bladder looked good. Future Testing and Treatments Planned No Developmental History Developmental History 4Gravida, 4Parety: Births: , 11/05/2013, 2016, 08/19/2018 (ages 11, 10, 6 , 4). Treatment Goals Patient/Caregiver Goals Pt goals: Reduce back pain. Decrease feeling of bulge and pressure in PF with exercise. Decrease freqency of urination . Personal Factors Other Personal Factors That May Effect Neck pain/headaches after Therapy/Recovery childbearing, anxiety not controlled by meds. 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 PT-OP-C Subjective Start: 03/18/23 17:50 Freq: Status: Active Protocol: Document 05/24/23 14:35 LRN (Rec: 05/24/23 15:53 LRN [id number]) OP-PT Subjective Patient Comments Patient Comments No changes. PT-OP-H Neuro Start: 03/18/23 17:50 Freq: Status: Active Protocol: Document 03/26/23 15:07 LRN (Rec: 03/26/23 16:58 LRN [id number]) Sensation Evaluation Gross Sensation Gross Sensation WNL PT-OP-I Pelvic Floor Start: 03/18/23 17:50 Freq: Status: Active Protocol: Document 04/23/23 15:06 LRN (Rec: 04/23/23 16:25 LRN [id number]) Pelvic Floor Assessment SEMG (uV) Baseline 1.4 Quick Contraction 5.8 10 Second Contraction 7.7 Recruitment Pattern Good Relaxation Fair Holding Poor/Slow Stability of Hold Poor/Slow SEMG Stability of Rest Poor/Slow Comments Pelvic Floor Comments Quick Flicks: 10 reps strength (uV's): avg work 5.5, avg rest 3.8. 20 reps strength (uV's): avg work 5.8, avg rest 3.8. Long Holds: 10 reps strength (uV's): avg work 7.7, avg rest 4.0. 20 reps strength (uV's): avg work 7.3, avg rest 3.8. PT-OP-J Posture/Palpation/Skin Start: 03/18/23 17:50 Freq: Status: Active Protocol: Document 03/26/23 15:07 LRN (Rec: 03/26/23 16:58 LRN [id number]) Posture Evaluation Position Standing T-Spine Posture Flattened L-Spine Posture Increased Lordosis Shoulder Posture Neutral Pelvis Posture Anteriorly Tilted Comments Posture Comments R PSIS is high and slightly posterior, L4-L5 angled left. Palpation Assessment Location Neck pain Palpation Location Cervical paraspinals and bilateral UT's Palpation Findings Soft Tissue Tightness, Tenderness Low Back Palpation Location L4-L5 and sacrum Palpation Details Standing: No tenderness, but location above is where her reported pain is with prolonged standing or before menstration. Prone: Tenderness with PA pressure. PT-OP-K Range of Motion Start: 03/18/23 17:50 Freq: Status: Active Protocol: Document 03/26/23 15:07 LRN (Rec: 03/26/23 16:58 LRN [id number]) Lumbar Spine Range of Motion Lumbar Spine Active Degrees Testing Position Standing Flexion 110 Extension 30 Rotation Left 30 Rotation Right 30 Lateral Flexion Left 25 Lateral Flexion Right 20 Comments Trunk AROM: Flexion is 110 deg?s with 60 deg?s hip flexion, Trunk extension is 30 deg?s with 20 deg?s hip extension. Hip Goniometric Range of Motion Hip Right Passive Testing Position Supine Internal Rotation 40 External Rotation 70 Left Passive Testing Position Supine Internal Rotation 35 External Rotation 70 PT-OP-L Special Tests Start: 03/18/23 17:50 Freq: Status: Active Protocol: Document 03/26/23 15:07 LRN (Rec: 03/26/23 16:58 LRN [id number]) Special Tests Lumbar Spine Special Tests Straight Leg Raise Test Results - bilaterally PT-OP-M Strength Start: 03/18/23 17:50 Freq: Status: Active Protocol: Document 03/26/23 15:07 LRN (Rec: 03/26/23 16:58 LRN [id number]) Trunk Strength Trunk Manual Muscle Testing Core Stabilization Loss of core rotational stability with MMT of hip ext. Hip Strength Hip Manual Muscle Testing Right Comments Strength is 5/5 Left Flexion (L2) 4 Good External Rotation 4+ Good+ Comments Strength is 5/5 except as indicated above PT-OP-Q Treatments Start: 03/18/23 17:50 Freq: Status: Active Protocol: Document 05/24/23 14:35 LRN (Rec: 05/24/23 15:53 LRN [id number]) Therapeutic Exercises Supine Exercises Hip AD's Supine Exercise Name I/S pt in floor stretch or supine wall stretch. Side bilateral Reps/Minutes 1' Happy Baby Pose Supine Exercise Name Holding knees vs ankles Reps/Minutes 3' Comments Pt had difficulty holding ankles due to hip tightness. Sitting Exercises Urinary Delay Technique Sitting Exercise Name Urinary Delay Technique training in sitting Reps/Minutes 3' Comments V cuing for Quick squeezes and slow breathing, talking to bladder Standing Exercises Urinary Delay Technique Standing Exercise Name Urinary Delay Technique training in standing Reps/Minutes 3' Comments V cuing for Quick squeezes, deep breathing, talking to bladder, walk slow Manual Therapy Treatment Soft Tissue Mobilization PF stretch Body Location PF around the clock internally ; external L>R side stretch. Body Position Hooklying Comments Pt tender and tight around the PF Clock, possibly from pt hold legs in guarded position. Pt noting a little swollen, possibly from period to start soon. Self-Care/Home Management Treatment Education Other Education Pt educated and discussed how to bladder retrain and education in urge deference technique with use to delay voiding walking to bathroom with an urge. Pt education and discussion of bladder irritants with recommendations to reduce caffeine intake and coffee substitutes. Pt educated in norms for hydration levels of 1/2 body wg in oz's. Pt noted to need 79 oz, but found to be drinking 92-120 oz's initially . Activities Self-Care/Home Management Activities Issued HO's for bladder retraining/urge deference technique and bladder irritants. PT-OP-T Assessment and Plan Start: 03/18/23 17:50 Freq: Status: Active Protocol: Document 05/24/23 14:35 LRN (Rec: 05/24/23 15:53 LRN [id number]) Physical Therapy Assessment Goals Four Impairment Low back pain with prolonged standing Short Term Goal (STG) Pt will be able to stabilize her core with MMT of hip extension. STG Duration 6 wks-05/21/23 Air Traffic Coordinator Goal (LTG) Reduce back pain with pt able to manage her pain with core stabilization. LTG Duration 12 wks-06/24/23 Three Impairment Bulge pressure in PF with exercise. Short Term Goal (STG) Education in proper methods for transfer with coordination of breathing. 03/26/23: Pt educated in transfer supine>sit coordinating breathing. 04/16/23: Pt educated in transfers sit<>sup<>stand coordinating breathing. STG Duration 2 wks-04/09/23 (04/16/23: MET GOAL) Air Traffic Coordinator Goal (LTG) Decrease feeling of bulge and pressure in PF with exercise. 05/04/23: Started period this week, so having pelvic pain. LTG Duration 12 wks-06/24/23 Two Impairment Increased frequency of urination. Impairment Urinary voiding 1-2 more times immediately after voiding throughout the day. Short Term Goal (STG) Decrease frequency that pt needs to void immediately after voiding to 1x/day. 05/04/23: Sometimes has to void immediately after voiding at night. STG Duration 6 wks-05/21/23 Air Traffic Coordinator Goal (LTG) Decrease freqency of urination to every 2-3 hours. LTG Duration 12 wks-06/24/23 One Impairment Pt lacks appropriate self care HEP. Short Term Goal (STG) Pt will be educated in proper PF contractions, vulvar/ genital care. 04/16/23: Pt educated in Kegels. 05/04/23: Pt educated in vulvar and genital care. STG Duration 3 wks-04/16/23 (05/04/23: MET GOAL) Air Traffic Coordinator Goal (LTG) Pt will be independent with a self care HEP of PF/core strengthening and hip ROM exercises. 05/04/23: Issued HEP: [place] stretch to abdomen. LTG Duration 12 wks-06/24/23 progressed 05/04/23 Assessment Summary Assessment Pt with cystocele, rectocele and possible urethrocele on eval. Pt has increased urinary voiding, LBP, neck pain, PF/core weakness, PF active trigger points (mostly on the left side), and decreased hip mobility and strength. She was very tight in PF around the clock and in her hips (deep IR's and hip AD 's). She is drinking 92-120 oz's H2O, but should only be drinking ~79 ozs. Physical Therapy Plan Frequency and Duration Frequency of Treatment 1x/Week Duration of treatment (weeks) 12 Plan of Care Start Date 03/26/23 Plan of Care End Date 06/24/23 Next Visit Focus/Plan Next Note Type Treatment Note Next Visit Plan PN in 2 visits. Next: Assess response to bladder retraining (extending time between voids with ultimate goal of 2 hrs) and urination times, add: hip flexor stretching & check/stretch hip AD tightness, and abdominal mobs. Review/training for transfer with coordination of breathing (relax of PF). Progress PF strengthening to decrease feeling of bulge and PF pressure. Manual: Balance sacrum, LB/ neck therapy. Ex's: hip IR/AD stretching; PF (on wedge and mgmt consultant PF) & hip strengthening. Vemg: if Stim, afterwards might need PF stretching if increase in tightness or # of voids.
--- NOTE | 2023-06-04 12:12 | PT.OTN ---
Current Diagnoses Cervicalgia (06/04/23) Low back pain, unspecified (06/04/23) Cystocele, unspecified (06/04/23) Retention of urine, unspecified (06/04/23) Physical Therapy Treatment Note PT-OP-A Visit Information Start: 03/18/23 17:50 Freq: Status: Active Protocol: Document 06/04/23 09:00 LRN (Rec: 06/04/23 09:51 LRN [id number]) Out-Patient Physical Therapy Visit Information Visit Information Visit Type Treatment Note Visit Start Time 09:00 Visit Stop Time 09:48 Total Visit Minutes 48 Visit Number 01/04 Evaluation Information Evaluation Date 03/26/23 Precautions Precautions LBP/neck pain. Wgt is 157# PT-OP-B Current Condition Start: 03/18/23 17:50 Freq: Status: Active Protocol: Document 03/26/23 15:07 LRN (Rec: 03/26/23 16:58 LRN [id number]) Current Condition History of Current Condition Onset Date 2014 Current Complaints High frequency of urination and has PF bulge w/sometimes pressure and LBP History of Current Condition States she has LBP and PF dysfunction after carrying 4 large babies. LBP started after first . Just before her period LBP is severe and pain is present after prolonged standing. States when lying on stomach LB feel like something is dislocating. She complains of high frequency of urination and feeling of bulge and pressure in the PF. Prior Treatments and Tests Pelvic Ultrasound and was told her bladder looked good. Future Testing and Treatments Planned No Developmental History Developmental History 4Gravida, 4Parety: Births: , 11/05/2013, 2016, [birth year]2020 (ages 11, 10, 6 , 4). Treatment Goals Patient/Caregiver Goals Pt goals: Reduce back pain. Decrease feeling of bulge and pressure in PF with exercise. Decrease freqency of urination . Personal Factors Other Personal Factors That May Effect Neck pain/headaches after Therapy/Recovery childbearing, anxiety not controlled by meds. 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 PT-OP-C Subjective Start: 03/18/23 17:50 Freq: Status: Active Protocol: Document 06/04/23 09:00 LRN (Rec: 06/04/23 09:51 LRN [id number]) OP-PT Subjective Patient Comments Patient Comments States her pee times are normal (7-8 secs), voiding every hour in PM. Has had lower back and neck pain, needed IBP 2x this past week. PT-OP-H Neuro Start: 03/18/23 17:50 Freq: Status: Active Protocol: Document 03/26/23 15:07 LRN (Rec: 03/26/23 16:58 LRN [id number]) Sensation Evaluation Gross Sensation Gross Sensation WNL PT-OP-I Pelvic Floor Start: 03/18/23 17:50 Freq: Status: Active Protocol: Document 04/23/23 15:06 LRN (Rec: 04/23/23 16:25 LRN [id number]) Pelvic Floor Assessment SEMG (uV) Baseline 1.4 Quick Contraction 5.8 10 Second Contraction 7.7 Recruitment Pattern Good Relaxation Fair Holding Poor/Slow Stability of Hold Poor/Slow SEMG Stability of Rest Poor/Slow Comments Pelvic Floor Comments Quick Flicks: 10 reps strength (uV's): avg work 5.5, avg rest 3.8. 20 reps strength (uV's): avg work 5.8, avg rest 3.8. Long Holds: 10 reps strength (uV's): avg work 7.7, avg rest 4.0. 20 reps strength (uV's): avg work 7.3, avg rest 3.8. PT-OP-J Posture/Palpation/Skin Start: 03/18/23 17:50 Freq: Status: Active Protocol: Document 03/26/23 15:07 LRN (Rec: 03/26/23 16:58 LRN [id number]) Posture Evaluation Position Standing T-Spine Posture Flattened L-Spine Posture Increased Lordosis Shoulder Posture Neutral Pelvis Posture Anteriorly Tilted Comments Posture Comments R PSIS is high and slightly posterior, L4-L5 angled left. Palpation Assessment Location Neck pain Palpation Location Cervical paraspinals and bilateral UT's Palpation Findings Soft Tissue Tightness, Tenderness Low Back Palpation Location L4-L5 and sacrum Palpation Details Standing: No tenderness, but location above is where her reported pain is with prolonged standing or before menstration. Prone: Tenderness with PA pressure. PT-OP-K Range of Motion Start: 03/18/23 17:50 Freq: Status: Active Protocol: Document 03/26/23 15:07 LRN (Rec: 03/26/23 16:58 LRN [id number]) Lumbar Spine Range of Motion Lumbar Spine Active Degrees Testing Position Standing Flexion 110 Extension 30 Rotation Left 30 Rotation Right 30 Lateral Flexion Left 25 Lateral Flexion Right 20 Comments Trunk AROM: Flexion is 110 deg?s with 60 deg?s hip flexion, Trunk extension is 30 deg?s with 20 deg?s hip extension. Hip Goniometric Range of Motion Hip Right Passive Testing Position Supine Internal Rotation 40 External Rotation 70 Left Passive Testing Position Supine Internal Rotation 35 External Rotation 70 PT-OP-L Special Tests Start: 03/18/23 17:50 Freq: Status: Active Protocol: Document 03/26/23 15:07 LRN (Rec: 03/26/23 16:58 LRN [id number]) Special Tests Lumbar Spine Special Tests Straight Leg Raise Test Results - bilaterally PT-OP-M Strength Start: 03/18/23 17:50 Freq: Status: Active Protocol: Document 03/26/23 15:07 LRN (Rec: 03/26/23 16:58 LRN [id number]) Trunk Strength Trunk Manual Muscle Testing Core Stabilization Loss of core rotational stability with MMT of hip ext. Hip Strength Hip Manual Muscle Testing Right Comments Strength is 5/5 Left Flexion (L2) 4 Good External Rotation 4+ Good+ Comments Strength is 5/5 except as indicated above PT-OP-Q Treatments Start: 03/18/23 17:50 Freq: Status: Active Protocol: Document 06/04/23 09:00 LRN (Rec: 06/04/23 09:51 LRN [id number]) Therapeutic Exercises Supine Exercises Hip flexor stretch Supine Exercise Name Hip flexor stretch (laurel test position) Side bilateral Reps/Minutes 60 SH x 1, f/b active hip ext x 10 Comments Extra time taken to determine max tolerated stretch. Hip AD's Supine Exercise Name I/S pt in floor stretch or supine wall stretch. Side bilateral Reps/Minutes 1' Deep Breathing Supine Exercise Name Deep Breathing Comments Pt doing 4 sec in, 5 sec out breaths Manual Therapy Treatment Soft Tissue Mobilization L lateral trunk rotators Body Location L lateral trunk rotators and abdomen stretch to L side. Mobilization Type Strumming Intensity/Depth Moderate Body Position Hooklying Comments Pt showed self Trunk rotator manual stretch. Neuro Re-Education Treatment Other Activities PF awareness training Details Vemg stim for PF contraction training Reps/Duration 10' EStim, 21 intensity, 10:10 Comments 3' Extra time for set up & to determine max tolerated stim for PF contraction. Kegel with DB breathwork ( Kegel w/inhale to start) Self-Care/Home Management Treatment Education Other Education Reviewed bladder diary and intiated bladder retraining for PM to extend voiding > every hour. Activities Self-Care/Home Management Activities Issued HEP: Hip flexor stretch (sup, standing, 1/2 kneel) and Kegel/hip AD strengthening. PT-OP-T Assessment and Plan Start: 03/18/23 17:50 Freq: Status: Active Protocol: Document 06/04/23 09:00 LRN (Rec: 06/04/23 09:51 LRN [id number]) Physical Therapy Assessment Goals Four Impairment Low back pain with prolonged standing Short Term Goal (STG) Pt will be able to stabilize her core with MMT of hip extension. STG Duration 6 wks-05/21/23 Nursing Home Goal (LTG) Reduce back pain with pt able to manage her pain with core stabilization. LTG Duration 12 wks-06/24/23 Three Impairment Bulge pressure in PF with exercise. Short Term Goal (STG) Education in proper methods for transfer with coordination of breathing. 03/26/23: Pt educated in transfer supine>sit coordinating breathing. 04/16/23: Pt educated in transfers sit<>sup<>stand coordinating breathing. STG Duration 2 wks-04/09/23 (04/16/23: MET GOAL) Nursing Home Goal (LTG) Decrease feeling of bulge and pressure in PF with exercise. 05/04/23: Started period this week, so having pelvic pain. LTG Duration 12 wks-06/24/23 Two Impairment Increased frequency of urination. Impairment Urinary voiding 1-2 more times immediately after voiding throughout the day. Short Term Goal (STG) Decrease frequency that pt needs to void immediately after voiding to 1x/day. 05/04/23: Sometimes has to void immediately after voiding at night. 06/04/23: Voiding every 2 hrs in AM, every hour after 1p, 2 nighttime voids, not immediately after each other. STG Duration 6 wks-05/21/23 slow progress 06/04/23 Nursing Home Goal (LTG) Decrease freqency of urination to every 2-3 hours. LTG Duration 12 wks-06/24/23 One Impairment Pt lacks appropriate self care HEP. Short Term Goal (STG) Pt will be educated in proper PF contractions, vulvar/ genital care. 04/16/23: Pt educated in Kegels. 05/04/23: Pt educated in vulvar and genital care. STG Duration 3 wks-04/16/23 (05/04/23: MET GOAL) Communications Operator Goal (LTG) Pt will be independent with a self care HEP of PF/core strengthening and hip ROM exercises. 05/04/23: Issued HEP: [place] stretch to abdomen. 06/04/23: HEP: Hip flexor stretch (laurel test position) LTG Duration 12 wks-06/24/23 progressed 06/04/23 Assessment Summary Assessment With bladder retraining, pt sometimes has difficulty with holding past 1 urge, with leakage. 1x Leakage (quarter size) with sneeze. Pt voiding hourly in PM. L hip flexors and trunk rotators tight compared to R. Pt with cystocele, rectocele and possible urethrocele on eval. Pt has increased urinary voiding, LBP, neck pain, PF/ core weakness, PF active trigger points (mostly on the left side), and decreased hip mobility and strength. Physical Therapy Plan Frequency and Duration Frequency of Treatment 1x/Week Duration of treatment (weeks) 12 Plan of Care Start Date 03/26/23 Plan of Care End Date 06/24/23 Next Visit Focus/Plan Next Note Type Progress Note Next Visit Plan PN for new POC. Next: Assess response to bladder retraining (extending time between voids with ultimate goal of 2 hrs) and urination times, add: hip flexor stretching & check/stretch abdominal mobs. Review/training for transfer with coordination of breathing (relax of PF). Progress PF strengthening to decrease feeling of bulge and PF pressure. Manual: Balance sacrum, LB/ neck therapy. Ex's: hip IR/AD stretching; PF (on wedge and summer sessions director PF) & hip strengthening. Vemg: if Stim, afterwards might need PF stretching if increase in tightness or # of voids.
--- NOTE | 2023-06-28 16:13 | PT.OTN ---
Current Diagnoses Cervicalgia (06/28/23) Low back pain, unspecified (06/28/23) Cystocele, unspecified (06/28/23) Retention of urine, unspecified (06/28/23) Physical Therapy Treatment Note PT-OP-A Visit Information Start: 03/18/23 17:50 Freq: Status: Active Protocol: Document 06/28/23 14:53 LRN (Rec: 06/28/23 16:13 LRN [id number]) Out-Patient Physical Therapy Visit Information Visit Information Visit Type Progress Note Visit Start Time 14:53 Visit Stop Time 15:43 Total Visit Minutes 50 Visit Number 02/04 Evaluation Information Evaluation Date 03/26/23 Precautions Precautions LBP/neck pain. Wgt is 157# PT-OP-B Current Condition Start: 03/18/23 17:50 Freq: Status: Active Protocol: Document 03/26/23 15:07 LRN (Rec: 03/26/23 16:58 LRN [id number]) Current Condition History of Current Condition Onset Date 2014 Current Complaints High frequency of urination and has PF bulge w/sometimes pressure and LBP History of Current Condition States she has LBP and PF dysfunction after carrying 4 large babies. LBP started after first . Just before her period LBP is severe and pain is present after prolonged standing. States when lying on stomach LB feel like something is dislocating. She complains of high frequency of urination and feeling of bulge and pressure in the PF. Prior Treatments and Tests Pelvic Ultrasound and was told her bladder looked good. Future Testing and Treatments Planned No Developmental History Developmental History 4Gravida, 4Parety: Births: , [birth year]/05/2015, 2018, 08/19/2020 (ages 11, 10, 6 , 4). Treatment Goals Patient/Caregiver Goals Pt goals: Reduce back pain. Decrease feeling of bulge and pressure in PF with exercise. Decrease freqency of urination . Personal Factors Other Personal Factors That May Effect Neck pain/headaches after Therapy/Recovery childbearing, anxiety not controlled by meds. 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 PT-OP-C Subjective Start: 03/18/23 17:50 Freq: Status: Active Protocol: Document 06/28/23 14:53 LRN (Rec: 06/28/23 16:13 LRN [id number]) OP-PT Subjective Patient Comments Patient Comments Stopped coffee since 06/14/23. Not too much change. Urinating frequently sometimes almost every hour and othertimes can wait 2.5-3 hrs. Can sleep through the night (6-7 hrs) without voiding. Drinking 80 0x of water. Doing PF contractions 1x daily . PT-OP-H Neuro Start: 03/18/23 17:50 Freq: Status: Active Protocol: Document 03/26/23 15:07 LRN (Rec: 03/26/23 16:58 LRN [id number]) Sensation Evaluation Gross Sensation Gross Sensation WNL PT-OP-I Pelvic Floor Start: 03/18/23 17:50 Freq: Status: Active Protocol: Document 06/28/23 14:53 LRN (Rec: 06/28/23 16:13 LRN [id number]) Pelvic Floor Assessment SEMG (uV) Baseline 2.1 Quick Contraction 5.5 10 Second Contraction 5.9 Recruitment Pattern Good Relaxation Good Holding Fair Stability of Hold Fair SEMG Stability of Rest Good Comments Pelvic Floor Comments Quick Flicks: 10 reps strength (uV's): avg work 5.5, avg rest 4.3. 20 reps strength (uV's): avg work 5.0, avg rest 3.8. Long Holds: 10 reps strength (uV's): avg work 5.9, avg rest 2.5. 20 reps strength (uV's): avg work 7.3, avg rest 3.8. PT-OP-J Posture/Palpation/Skin Start: 03/18/23 17:50 Freq: Status: Active Protocol: Document 03/26/23 15:07 LRN (Rec: 03/26/23 16:58 N [id number]) Posture Evaluation Position Standing T-Spine Posture Flattened L-Spine Posture Increased Lordosis Shoulder Posture Neutral Pelvis Posture Anteriorly Tilted Comments Posture Comments R PSIS is high and slightly posterior, L4-L5 angled left. Palpation Assessment Location Neck pain Palpation Location Cervical paraspinals and bilateral UT's Palpation Findings Soft Tissue Tightness, Tenderness Low Back Palpation Location L4-L5 and sacrum Palpation Details Standing: No tenderness, but location above is where her reported pain is with prolonged standing or before menstration. Prone: Tenderness with PA pressure. PT-OP-K Range of Motion Start: 03/18/23 17:50 Freq: Status: Active Protocol: Document 03/26/23 15:07 LRN (Rec: 03/26/23 16:58 LRN [id number]) Lumbar Spine Range of Motion Lumbar Spine Active Degrees Testing Position Standing Flexion 110 Extension 30 Rotation Left 30 Rotation Right 30 Lateral Flexion Left 25 Lateral Flexion Right 20 Comments Trunk AROM: Flexion is 110 deg?s with 60 deg?s hip flexion, Trunk extension is 30 deg?s with 20 deg?s hip extension. Hip Goniometric Range of Motion Hip Right Passive Testing Position Supine Internal Rotation 40 External Rotation 70 Left Passive Testing Position Supine Internal Rotation 35 External Rotation 70 PT-OP-L Special Tests Start: 03/18/23 17:50 Freq: Status: Active Protocol: Document 03/26/23 15:07 LRN (Rec: 03/26/23 16:58 LRN [id number]) Special Tests Lumbar Spine Special Tests Straight Leg Raise Test Results - bilaterally PT-OP-M Strength Start: 03/18/23 17:50 Freq: Status: Active Protocol: Document 03/26/23 15:07 LRN (Rec: 03/26/23 16:58 LRN [id number]) Trunk Strength Trunk Manual Muscle Testing Core Stabilization Loss of core rotational stability with MMT of hip ext. Hip Strength Hip Manual Muscle Testing Right Comments Strength is 5/5 Left Flexion (L2) 4 Good External Rotation 4+ Good+ Comments Strength is 5/5 except as indicated above PT-OP-Q Treatments Start: 03/18/23 17:50 Freq: Status: Active Protocol: Document 06/28/23 14:53 LRN (Rec: 06/28/23 16:13 LRN [id number]) Therapeutic Exercises Supine Exercises PF Long Hold >< Supine Exercise Name PF Long Hold >< with Vemg electrode Reps/Minutes 10 sec hold (SH)/10 sec rest Comments Cuing to isolate PF PF Quick >< Supine Exercise Name PF Quick >< with with Vemg electrode Reps/Minutes 2 SH/2 SR Comments Cuing to isolate PF Neuro Re-Education Treatment Other Activities PF awareness training Details Vemg stim for PF contraction training Reps/Duration 10' EStim, 13-14 intensity, 10 :10 Comments Extra time for set up & to determine max tolerated stim for PF contraction. Kegel with DB breathwork 3 positions: at rest, with hip lift, with hip AB-AD. Self-Care/Home Management Treatment Education Other Education Reviewed pt's bladder diary on her phone. Pt voiding every ~1.5 hrs. Educated pt in fluid level norm of 79 oz (pt drinking 80 oz). PT-OP-T Assessment and Plan Start: 03/18/23 17:50 Freq: Status: Active Protocol: Document 06/28/23 14:53 LRN (Rec: 06/28/23 16:13 LRN [id number]) Physical Therapy Assessment Goals Four Impairment Low back pain with prolonged standing Short Term Goal (STG) Pt will be able to stabilize her core with MMT of hip extension. STG Duration 6 wks more-08/09/23 Petroleum Sampler Goal (LTG) Reduce back pain with pt able to manage her pain with core stabilization. 06/28/23: LBP hasn't been as bad, hasn't noticed it. Having lateral hip pain (L>R). LTG Duration 12 wks more-09/25/23 progressed 06/28/23 Three Impairment Bulge pressure in PF with exercise. Short Term Goal (STG) Education in proper methods for transfer with coordination of breathing. 03/26/23: Pt educated in transfer supine>sit coordinating breathing. 04/16/23: Pt educated in transfers sit<>sup<>stand coordinating breathing. STG Duration 2 wks-04/09/23 (04/16/23: MET GOAL) Petroleum Sampler Goal (LTG) Decrease feeling of bulge and pressure in PF with exercise. 05/04/23: Started period this week, so having pelvic pain. 06/28/23: Hasn't done strenous ex, notices bulge/ pressure during period. LTG Duration 12 wks more-09/25/23 Two Impairment Increased frequency of urination. Impairment Urinary voiding 1-2 more times immediately after voiding throughout the day. Short Term Goal (STG) Decrease frequency that pt needs to void immediately after voiding to 1x/day. 05/04/23: Sometimes has to void immediately after voiding at night. 06/04/23: Voiding every 2 hrs in AM, every hour after 1p, 2 nighttime voids, not immediately after each other. 06/28:24: No longer voiding immediately after voiding. Frequency of urination ~every 1.5 hrs and can sleep through the night. STG Duration 6 wks more-08/09/23 (: Reports goal met for 1st time) Petroleum Sampler Goal (LTG) Decrease freqency of urination to every 2-3 hours. : Frequency of urination ~every 1.5 hrs. Not voiding immediately after voiding. LTG Duration 12 wks more-09/25/23 progressed 06/28/23. One Impairment Pt lacks appropriate self care HEP. Short Term Goal (STG) Pt will be educated in proper PF contractions, vulvar/ genital care. 04/16/23: Pt educated in Kegels. 05/04/23: Pt educated in vulvar and genital care. STG Duration 3 wks-04/16/23 (05/04/23: MET GOAL) [facility] Goal (LTG) Pt will be independent with a self care HEP of PF/core strengthening and hip ROM exercises. 05/04/23: Issued HEP: [place] stretch to abdomen. 06/04/23: HEP: Hip flexor stretch (laurel test position) LTG Duration 12 wks more-09/25/23 progressed 06/04/23 Assessment Summary Assessment Pt is a 33 yo female who is being seen for cystocele, rectocele and possible urethrocele. She had frequent urination complaints and LBP since first as well as neck pain. She is reporting less back pain and periods of increased urination (every hour), otherwise voiding is every 1.5-3 hrs. She is only exercising 1x/day but has been using the delay technique to extend her time between voids. Her feeling of falling out perists, as since the holdays is exercising only 1x/day. Her PF strength is less, but stability of hold is good. Her resting tone is slightly higher after PF contractions, but over time is able to lower her resting after contractions. The pt will benefit from continued skilled physical therapy for further PF strengthening, abdominal and hip STM and treatment to reduce her LBP that affects her PF strength. The pt is having bilateral hip pain that may also be limiting her PF strength of contraction. Continuation of therapy to work towards achieving her above stated goals is appropriate. Physical Therapy Plan Frequency and Duration Frequency of Treatment 1x/Week Duration of treatment (weeks) 12 Plan of Care Start Date 06/28/23 Plan of Care End Date 09/25/23 Next Visit Focus/Plan Next Note Type Treatment Note Next Visit Plan Next: Assess/treat for active trigger points (mostly on the left side of PF) & add MFR to hip AD's, add: hip flexor stretching & check/stretch abdominal mobs. Monitor bladder retraining (extending time between voids with ultimate goal of 2 hrs) and urination times. Review/training for transfer with coordination of breathing (relax of PF). Manual: Balance sacrum, LB/ neck therapy. Ex's: hip IR/AD stretching; PF (on wedge and extrusion die template maker PF) & hip strengthening. Progress PF strengthening (on wedge) to decrease feeling of bulge and PF pressure. Vemg: if Stim, afterwards might need PF stretching if increase in tightness or # of voids.
--- NOTE | 2023-06-28 16:14 | PT.OPPOC ---
Physical, Occupational & Speech Therapy At [facility] Current Diagnoses Cervicalgia (06/28/23) Low back pain, unspecified (06/28/23) Cystocele, unspecified (06/28/23) Retention of urine, unspecified (06/28/23) Visit Care Team Role Provider Type Farzad Ruvalcaba MD Family Provider Physician Primary Care Provider Specialty: Family Practice Address: [address] [place] [address], [address], [place], [address] Email: [email or web address] Gina Fernandez CNM Attending Provider [employer] Referring Provider Specialty: TRAFFIC [employer]RATE Address: [facility] [place] [address], [address], [place], [address] Email: [email or web address] Plan Of Care PT-OP-T Assessment and Plan Start: 03/18/23 17:50 Freq: Status: Active Protocol: Document 06/28/23 14:53 LRN (Rec: 06/28/23 16:13 LRN [id number]) Physical Therapy Assessment Goals Four Impairment Low back pain with prolonged standing Short Term Goal (STG) Pt will be able to stabilize her core with MMT of hip extension. STG Duration 6 wks more-08/09/23 Mushroom Cutter Goal (LTG) Reduce back pain with pt able to manage her pain with core stabilization. 06/28/23: LBP hasn't been as bad, hasn't noticed it. Having lateral hip pain (L>R). LTG Duration 12 wks more-09/25/23 progressed 06/28/23 Three Impairment Bulge pressure in PF with exercise. Short Term Goal (STG) Education in proper methods for transfer with coordination of breathing. 03/26/23: Pt educated in transfer supine>sit coordinating breathing. 04/16/23: Pt educated in transfers sit<>sup<>stand coordinating breathing. STG Duration 2 wks-04/09/23 (04/16/23: MET GOAL) Mushroom Cutter Goal (LTG) Decrease feeling of bulge and pressure in PF with exercise. 05/04/23: Started period this week, so having pelvic pain. 06/28/23: Hasn't done strenous ex, notices bulge/ pressure during period. LTG Duration 12 wks more-09/25/23 Two Impairment Increased frequency of urination. Impairment Urinary voiding 1-2 more times immediately after voiding throughout the day. Short Term Goal (STG) Decrease frequency that pt needs to void immediately after voiding to 1x/day. 05/04/23: Sometimes has to void immediately after voiding at night. 06/04/23: Voiding every 2 hrs in AM, every hour after 1p, 2 nighttime voids, not immediately after each other. 06/28:24: No longer voiding immediately after voiding. Frequency of urination ~every 1.5 hrs and can sleep through the night. STG Duration 6 wks more-08/09/23 (: Reports goal met for 1st time) [facility] Goal (LTG) Decrease freqency of urination to every 2-3 hours. 24: Frequency of urination ~every 1.5 hrs. Not voiding immediately after voiding. LTG Duration 12 wks more-09/25/23 progressed 06/28/23. One Impairment Pt lacks appropriate self care HEP. Short Term Goal (STG) Pt will be educated in proper PF contractions, vulvar/ genital care. 04/16/23: Pt educated in Kegels. 05/04/23: Pt educated in vulvar and genital care. STG Duration 3 wks-04/16/23 (05/04/23: MET GOAL) Mushroom Cutter Goal (LTG) Pt will be independent with a self care HEP of PF/core strengthening and hip ROM exercises. 05/04/23: Issued HEP: [place] stretch to abdomen. 06/04/23: HEP: Hip flexor stretch (laurel test position) LTG Duration 12 wks more-09/25/23 progressed 06/04/23 Assessment Summary Assessment Pt is a 33 yo female who is being seen for cystocele, rectocele and possible urethrocele. She had frequent urination complaints and LBP since first as well as neck pain. She is reporting less back pain and periods of increased urination (every hour), otherwise voiding is every 1.5-3 hrs. She is only exercising 1x/day but has been using the delay technique to extend her time between voids. Her feeling of falling out perists, as since the holdays is exercising only 1x/day. Her PF strength is less, but stability of hold is good. Her resting tone is slightly higher after PF contractions, but over time is able to lower her resting after contractions. The pt will benefit from continued skilled physical therapy for further PF strengthening, abdominal and hip STM and treatment to reduce her LBP that affects her PF strength. The pt is having bilateral hip pain that may also be limiting her PF strength of contraction. Continuation of therapy to work towards achieving her above stated goals is appropriate. Physical Therapy Plan Frequency and Duration Frequency of Treatment 1x/Week Duration of treatment (weeks) 12 Plan of Care Start Date 06/28/23 Plan of Care End Date 09/25/23 Next Visit Focus/Plan Next Note Type Treatment Note Next Visit Plan Next: Assess/treat for active trigger points (mostly on the left side of PF) & add MFR to hip AD's, add: hip flexor stretching & check/stretch abdominal mobs. Monitor bladder retraining (extending time between voids with ultimate goal of 2 hrs) and urination times. Review/training for transfer with coordination of breathing (relax of PF). Manual: Balance sacrum, LB/ neck therapy. Ex's: hip IR/AD stretching; PF (on wedge and hotel attendant PF) & hip strengthening. Progress PF strengthening (on wedge) to decrease feeling of bulge and PF pressure. Vemg: if Stim, afterwards might need PF stretching if increase in tightness or # of voids. Plan of Care Dates Plan of Care Start Date 06/28/23 Plan of Care End Date 09/25/23 Electronically Signed by: Anai Iraheta, PT 06/28/23 2325 If you are in agreement with this Plan of Care, please return a signed and dated copy. I have reviewed this Plan of Care and certify that the skilled therapy services above are required to meet the patient?s needs. Physician Signature Date Printed Name and Credentials Clinical Instructor Signature Printed Name and Credentials
--- NOTE | 2023-06-28 16:25 | PT.OTN ---
Current Diagnoses Cervicalgia (06/28/23) Low back pain, unspecified (06/28/23) Cystocele, unspecified (06/28/23) Retention of urine, unspecified (06/28/23) Physical Therapy Treatment Note PT-OP-A Visit Information Start: 03/18/23 17:50 Freq: Status: Active Protocol: Document 06/28/23 14:53 LRN (Rec: 06/28/23 16:13 LRN [id number]) Out-Patient Physical Therapy Visit Information Visit Information Visit Type Progress Note Visit Start Time 14:53 Visit Stop Time 15:43 Total Visit Minutes 50 Visit Number 02/04 Evaluation Information Evaluation Date 03/26/23 Precautions Precautions LBP/neck pain. Wgt is 157# PT-OP-B Current Condition Start: 03/18/23 17:50 Freq: Status: Active Protocol: Document 03/26/23 15:07 LRN (Rec: 03/26/23 16:58 LRN [id number]) Current Condition History of Current Condition Onset Date 2014 Current Complaints High frequency of urination and has PF bulge w/sometimes pressure and LBP History of Current Condition States she has LBP and PF dysfunction after carrying 4 large babies. LBP started after first . Just before her period LBP is severe and pain is present after prolonged standing. States when lying on stomach LB feel like something is dislocating. She complains of high frequency of urination and feeling of bulge and pressure in the PF. Prior Treatments and Tests Pelvic Ultrasound and was told her bladder looked good. Future Testing and Treatments Planned No Developmental History Developmental History 4Gravida, 4Parety: Births: , [birth year]/05/2015, 2018, 08/19/2020 (ages 11, 10, 6 , 4). Treatment Goals Patient/Caregiver Goals Pt goals: Reduce back pain. Decrease feeling of bulge and pressure in PF with exercise. Decrease freqency of urination . Personal Factors Other Personal Factors That May Effect Neck pain/headaches after Therapy/Recovery childbearing, anxiety not controlled by meds. 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 PT-OP-C Subjective Start: 03/18/23 17:50 Freq: Status: Active Protocol: Document 06/28/23 14:53 LRN (Rec: 06/28/23 16:13 LRN [id number]) OP-PT Subjective Patient Comments Patient Comments Stopped coffee since 06/14/23. Not too much change. Urinating frequently sometimes almost every hour and othertimes can wait 2.5-3 hrs. Can sleep through the night (6-7 hrs) without voiding. Drinking 80 0x of water. Doing PF contractions 1x daily . Patient Questionnaires Neck Disability Index NDI Score 15 Neck Disability Index Impairment 20 to 39% Impaired (Score 10- 19) Oswestry Low Back Index Oswestry Score 14 Oswestry Impairment 1 to 19% Impaired (Score 1-19) Pelvic Floor Distress Inventory Questionnaire (PFDI- SF20) Pelvic Floor Score 16 OP-PT Pain Assessment Pain Assessment Grid Paper Pain Assessment Grid Completed Yes Location L hip Pain Location Details Lateral L hip Intensity 3 Scale Used Numeric (0 - 10) R hip Pain Location Details Lateral Hip Intensity 1 Scale Used Numeric (0 - 10) Neck/shoulders Pain Location Details Across posterior neck and upper shoulders Intensity 4 Scale Used Numeric (0 - 10) Low Back Pain Location Details Across low back Iliac Crest level Intensity 3 Scale Used Numeric (0 - 10) PT-OP-H Neuro Start: 03/18/23 17:50 Freq: Status: Active Protocol: Document 03/26/23 15:07 LRN (Rec: 03/26/23 16:58 LRN [id number]) Sensation Evaluation Gross Sensation Gross Sensation WNL PT-OP-I Pelvic Floor Start: 03/18/23 17:50 Freq: Status: Active Protocol: Document 06/28/23 14:53 LRN (Rec: 06/28/23 16:13 LRN [id number]) Pelvic Floor Assessment SEMG (uV) Baseline 2.1 Quick Contraction 5.5 10 Second Contraction 5.9 Recruitment Pattern Good Relaxation Good Holding Fair Stability of Hold Fair SEMG Stability of Rest Good Comments Pelvic Floor Comments Quick Flicks: 10 reps strength (uV's): avg work 5.5, avg rest 4.3. 20 reps strength (uV's): avg work 5.0, avg rest 3.8. Long Holds: 10 reps strength (uV's): avg work 5.9, avg rest 2.5. 20 reps strength (uV's): avg work 7.3, avg rest 3.8. PT-OP-J Posture/Palpation/Skin Start: 03/18/23 17:50 Freq: Status: Active Protocol: Document 03/26/23 15:07 LRN (Rec: 03/26/23 16:58 LRN [id number]) Posture Evaluation Position Standing T-Spine Posture Flattened L-Spine Posture Increased Lordosis Shoulder Posture Neutral Pelvis Posture Anteriorly Tilted Comments Posture Comments R PSIS is high and slightly posterior, L4-L5 angled left. Palpation Assessment Location Neck pain Palpation Location Cervical paraspinals and bilateral UT's Palpation Findings Soft Tissue Tightness, Tenderness Low Back Palpation Location L4-L5 and sacrum Palpation Details Standing: No tenderness, but location above is where her reported pain is with prolonged standing or before menstration. Prone: Tenderness with PA pressure. PT-OP-K Range of Motion Start: 03/18/23 17:50 Freq: Status: Active Protocol: Document 03/26/23 15:07 LRN (Rec: 03/26/23 16:58 LRN [id number]) Lumbar Spine Range of Motion Lumbar Spine Active Degrees Testing Position Standing Flexion 110 Extension 30 Rotation Left 30 Rotation Right 30 Lateral Flexion Left 25 Lateral Flexion Right 20 Comments Trunk AROM: Flexion is 110 deg?s with 60 deg?s hip flexion, Trunk extension is 30 deg?s with 20 deg?s hip extension. Hip Goniometric Range of Motion Hip Right Passive Testing Position Supine Internal Rotation 40 External Rotation 70 Left Passive Testing Position Supine Internal Rotation 35 External Rotation 70 PT-OP-L Special Tests Start: 03/18/23 17:50 Freq: Status: Active Protocol: Document 03/26/23 15:07 LRN (Rec: 03/26/23 16:58 LRN [id number]) Special Tests Lumbar Spine Special Tests Straight Leg Raise Test Results - bilaterally PT-OP-M Strength Start: 03/18/23 17:50 Freq: Status: Active Protocol: Document 03/26/23 15:07 LRN (Rec: 03/26/23 16:58 LRN [id number]) Trunk Strength Trunk Manual Muscle Testing Core Stabilization Loss of core rotational stability with MMT of hip ext. Hip Strength Hip Manual Muscle Testing Right Comments Strength is 5/5 Left Flexion (L2) 4 Good External Rotation 4+ Good+ Comments Strength is 5/5 except as indicated above PT-OP-Q Treatments Start: 03/18/23 17:50 Freq: Status: Active Protocol: Document 06/28/23 14:53 LRN (Rec: 06/28/23 16:13 LRN [id number]) Therapeutic Exercises Supine Exercises PF Long Hold >< Supine Exercise Name PF Long Hold >< with Vemg electrode Reps/Minutes 10 sec hold (SH)/10 sec rest Comments Cuing to isolate PF PF Quick >< Supine Exercise Name PF Quick >< with with Vemg electrode Reps/Minutes 2 SH/2 SR Comments Cuing to isolate PF Neuro Re-Education Treatment Other Activities PF awareness training Details Vemg stim for PF contraction training Reps/Duration 10' EStim, 13-14 intensity, 10 :10 Comments Extra time for set up & to determine max tolerated stim for PF contraction. Kegel with DB breathwork 3 positions: at rest, with hip lift, with hip AB-AD. Self-Care/Home Management Treatment Education Other Education Reviewed pt's bladder diary on her phone. Pt voiding every ~1.5 hrs. Educated pt in fluid level norm of 79 oz (pt drinking 80 oz). PT-OP-T Assessment and Plan Start: 03/18/23 17:50 Freq: Status: Active Protocol: Document 06/28/23 14:53 LRN (Rec: 06/28/23 16:13 LRN [id number]) Physical Therapy Assessment Goals Four Impairment Low back pain with prolonged standing Short Term Goal (STG) Pt will be able to stabilize her core with MMT of hip extension. STG Duration 6 wks more-08/09/23 Hogshead Dumper Goal (LTG) Reduce back pain with pt able to manage her pain with core stabilization. 06/28/23: LBP hasn't been as bad, hasn't noticed it. Having lateral hip pain (L>R). LTG Duration 12 wks more-09/25/23 progressed 06/28/23 Three Impairment Bulge pressure in PF with exercise. Short Term Goal (STG) Education in proper methods for transfer with coordination of breathing. 03/26/23: Pt educated in transfer supine>sit coordinating breathing. 04/16/23: Pt educated in transfers sit<>sup<>stand coordinating breathing. STG Duration 2 wks-04/09/23 (04/16/23: MET GOAL) Fdc Goal (LTG) Decrease feeling of bulge and pressure in PF with exercise. 05/04/23: Started period this week, so having pelvic pain. 06/28/23: Hasn't done strenous ex, notices bulge/ pressure during period. LTG Duration 12 wks more-09/25/23 Two Impairment Increased frequency of urination. Impairment Urinary voiding 1-2 more times immediately after voiding throughout the day. Short Term Goal (STG) Decrease frequency that pt needs to void immediately after voiding to 1x/day. 05/04/23: Sometimes has to void immediately after voiding at night. 06/04/23: Voiding every 2 hrs in AM, every hour after 1p, 2 nighttime voids, not immediately after each other. 24: No longer voiding immediately after voiding. Frequency of urination ~every 1.5 hrs and can sleep through the night. STG Duration 6 wks more-08/09/23 (: Reports goal met for 1st time) Hogshead Dumper Goal (LTG) Decrease freqency of urination to every 2-3 hours. : Frequency of urination ~every 1.5 hrs. Not voiding immediately after voiding. LTG Duration 12 wks more-09/25/23 progressed 06/28/23. One Impairment Pt lacks appropriate self care HEP. Short Term Goal (STG) Pt will be educated in proper PF contractions, vulvar/ genital care. 04/16/23: Pt educated in Kegels. 05/04/23: Pt educated in vulvar and genital care. STG Duration 3 wks-04/16/23 (05/04/23: MET GOAL) Hogshead Dumper Goal (LTG) Pt will be independent with a self care HEP of PF/core strengthening and hip ROM exercises. 05/04/23: Issued HEP: [place] stretch to abdomen. 06/04/23: HEP: Hip flexor stretch (laurel test position) LTG Duration 12 wks more-09/25/23 progressed 06/04/23 Assessment Summary Assessment Pt is a 33 yo female who is being seen for cystocele, rectocele and possible urethrocele. She had frequent urination complaints and LBP since first as well as neck pain. She is reporting less back pain and periods of increased urination (every hour), otherwise voiding is every 1.5-3 hrs. She is only exercising 1x/day but has been using the delay technique to extend her time between voids. Her feeling of falling out perists, as since the holdays is exercising only 1x/day. Her PF strength is less, but stability of hold is good. Her resting tone is slightly higher after PF contractions, but over time is able to lower her resting after contractions. The pt will benefit from continued skilled physical therapy for further PF strengthening, abdominal and hip STM and treatment to reduce her LBP that affects her PF strength. The pt is having bilateral hip pain that may also be limiting her PF strength of contraction. Continuation of therapy to work towards achieving her above stated goals is appropriate. Physical Therapy Plan Frequency and Duration Frequency of Treatment 1x/Week Duration of treatment (weeks) 12 Plan of Care Start Date 06/28/23 Plan of Care End Date 09/25/23 Next Visit Focus/Plan Next Note Type Treatment Note Next Visit Plan Next: Assess/treat for active trigger points (mostly on the left side of PF) & add MFR to hip AD's, add: hip flexor stretching & check/stretch abdominal mobs. Monitor bladder retraining (extending time between voids with ultimate goal of 2 hrs) and urination times. Review/training for transfer with coordination of breathing (relax of PF). Manual: Balance sacrum, LB/ neck therapy. Ex's: hip IR/AD stretching; PF (on wedge and hide cooking operator PF) & hip strengthening. Progress PF strengthening (on wedge) to decrease feeling of bulge and PF pressure. Vemg: if Stim, afterwards might need PF stretching if increase in tightness or # of voids.
--- NOTE | 2023-07-09 16:12 | PT.OTN ---
Current Diagnoses Cervicalgia (07/09/23) Low back pain, unspecified (07/09/23) Cystocele, unspecified (07/09/23) Retention of urine, unspecified (07/09/23) Physical Therapy Treatment Note PT-OP-A Visit Information Start: 03/18/23 17:50 Freq: Status: Active Protocol: Document 07/09/23 13:55 LRN (Rec: 07/09/23 16:12 LRN [id number]) Out-Patient Physical Therapy Visit Information Visit Information Visit Type Treatment Note Visit Note 1 after PN Visit Start Time 13:55 Visit Stop Time 14:35 Visit Number 03/07 Evaluation Information Evaluation Date 03/26/23 Precautions Precautions LBP/neck pain. Wgt is 157# PT-OP-B Current Condition Start: 03/18/23 17:50 Freq: Status: Active Protocol: Document 03/26/23 15:07 LRN (Rec: 03/26/23 16:58 LRN [id number]) Current Condition History of Current Condition Onset Date 2014 Current Complaints High frequency of urination and has PF bulge w/sometimes pressure and LBP History of Current Condition States she has LBP and PF dysfunction after carrying 4 large babies. LBP started after first . Just before her period LBP is severe and pain is present after prolonged standing. States when lying on stomach LB feel like something is dislocating. She complains of high frequency of urination and feeling of bulge and pressure in the PF. Prior Treatments and Tests Pelvic Ultrasound and was told her bladder looked good. Future Testing and Treatments Planned No Developmental History Developmental History 4Gravida, 4Parety: Births: , [birth year]/2015, 2018, 08/19/2020 (ages 11, 10, 6 , 4). Treatment Goals Patient/Caregiver Goals Pt goals: Reduce back pain. Decrease feeling of bulge and pressure in PF with exercise. Decrease freqency of urination . Personal Factors Other Personal Factors That May Effect Neck pain/headaches after Therapy/Recovery childbearing, anxiety not controlled by meds. 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 PT-OP-C Subjective Start: 03/18/23 17:50 Freq: Status: Active Protocol: Document 07/09/23 13:55 LRN (Rec: 07/09/23 16:12 LRN [id number]) OP-PT Subjective Patient Comments Patient Comments States has been doing exercises. LB has been fine, c/o neck pain with looking down and rotation. PT-OP-H Neuro Start: 03/18/23 17:50 Freq: Status: Active Protocol: Document 03/26/23 15:07 LRN (Rec: 03/26/23 16:58 LRN [id number]) Sensation Evaluation Gross Sensation Gross Sensation WNL PT-OP-I Pelvic Floor Start: 03/18/23 17:50 Freq: Status: Active Protocol: Document 06/28/23 14:53 LRN (Rec: 06/28/23 16:13 LRN [id number]) Pelvic Floor Assessment SEMG (uV) Baseline 2.1 Quick Contraction 5.5 10 Second Contraction 5.9 Recruitment Pattern Good Relaxation Good Holding Fair Stability of Hold Fair SEMG Stability of Rest Good Comments Pelvic Floor Comments Quick Flicks: 10 reps strength (uV's): avg work 5.5, avg rest 4.3. 20 reps strength (uV's): avg work 5.0, avg rest 3.8. Long Holds: 10 reps strength (uV's): avg work 5.9, avg rest 2.5. 20 reps strength (uV's): avg work 7.3, avg rest 3.8. PT-OP-J Posture/Palpation/Skin Start: 03/18/23 17:50 Freq: Status: Active Protocol: Document 03/26/23 15:07 LRN (Rec: 03/26/23 16:58 LRN [id number]) Posture Evaluation Position Standing T-Spine Posture Flattened L-Spine Posture Increased Lordosis Shoulder Posture Neutral Pelvis Posture Anteriorly Tilted Comments Posture Comments R PSIS is high and slightly posterior, L4-L5 angled left. Palpation Assessment Location Neck pain Palpation Location Cervical paraspinals and bilateral UT's Palpation Findings Soft Tissue Tightness, Tenderness Low Back Palpation Location L4-L5 and sacrum Palpation Details Standing: No tenderness, but location above is where her reported pain is with prolonged standing or before menstration. Prone: Tenderness with PA pressure. PT-OP-K Range of Motion Start: 03/18/23 17:50 Freq: Status: Active Protocol: Document 03/26/23 15:07 LRN (Rec: 03/26/23 16:58 LRN [id number]) Lumbar Spine Range of Motion Lumbar Spine Active Degrees Testing Position Standing Flexion 110 Extension 30 Rotation Left 30 Rotation Right 30 Lateral Flexion Left 25 Lateral Flexion Right 20 Comments Trunk AROM: Flexion is 110 deg?s with 60 deg?s hip flexion, Trunk extension is 30 deg?s with 20 deg?s hip extension. Hip Goniometric Range of Motion Hip Right Passive Testing Position Supine Internal Rotation 40 External Rotation 70 Left Passive Testing Position Supine Internal Rotation 35 External Rotation 70 PT-OP-L Special Tests Start: 03/18/23 17:50 Freq: Status: Active Protocol: Document 03/26/23 15:07 LRN (Rec: 03/26/23 16:58 LRN [id number]) Special Tests Lumbar Spine Special Tests Straight Leg Raise Test Results - bilaterally PT-OP-M Strength Start: 03/18/23 17:50 Freq: Status: Active Protocol: Document 03/26/23 15:07 LRN (Rec: 03/26/23 16:58 LRN [id number]) Trunk Strength Trunk Manual Muscle Testing Core Stabilization Loss of core rotational stability with MMT of hip ext. Hip Strength Hip Manual Muscle Testing Right Comments Strength is 5/5 Left Flexion (L2) 4 Good External Rotation 4+ Good+ Comments Strength is 5/5 except as indicated above PT-OP-Q Treatments Start: 03/18/23 17:50 Freq: Status: Active Protocol: Document 07/09/23 13:55 LRN (Rec: 07/09/23 16:12 LRN [id number]) Therapeutic Exercises Supine Exercises Feet on wall/knees flexed Supine Exercise Name Feet on wall/knees flexed/PF with ball squeeze and hip lift Side bilateral Equipment Used ball, TB Reps/Minutes 9' Feet on wall/LE Roll in/out Supine Exercise Name On wedge/Feet on wall/LE roll in-out/adding later ball squeeze/TB hip ER Equipment Used ball, TB Reps/Minutes 9' Hip AD's Supine Exercise Name On Wedge/V-sit with heels on wall Reps/Minutes 2' Happy Baby Pose Supine Exercise Name Holding knees vs ankles Reps/Minutes 3' Comments Pt had difficulty holding ankles due to hip tightness. Manual Therapy Treatment Soft Tissue Mobilization Hip AD's Body Location Hip AD's Mobilization Type Manual Lymphatic Drainage Intensity/Depth Moderate Body Position Supine Comments L tighter than R. PF stretch Body Location PF on L side internally; external L>R side stretch. Body Position Hooklying Self-Care/Home Management Treatment Education Other Education Issued handout on postural changes with with notation of pt to be aware of increased lordosis. PT-OP-T Assessment and Plan Start: 03/18/23 17:50 Freq: Status: Active Protocol: Document 07/09/23 13:55 LRN (Rec: 07/09/23 16:12 LRN [id number]) Physical Therapy Assessment Goals Four Impairment Low back pain with prolonged standing Short Term Goal (STG) Pt will be able to stabilize her core with MMT of hip extension. STG Duration 6 wks more-08/09/23 Retirement Goal (LTG) Reduce back pain with pt able to manage her pain with core stabilization. 06/28/23: LBP hasn't been as bad, hasn't noticed it. Having lateral hip pain (L>R). 07/09/23: Pt reporting LBP is fine. LTG Duration 12 wks more-09/25/23 (: MET GOAL) Three Impairment Bulge pressure in PF with exercise. Short Term Goal (STG) Education in proper methods for transfer with coordination of breathing. 03/26/23: Pt educated in transfer supine>sit coordinating breathing. 04/16/23: Pt educated in transfers sit<>sup<>stand coordinating breathing. STG Duration 2 wks-04/09/23 (04/16/23: MET GOAL) Hot Blaster Goal (LTG) Decrease feeling of bulge and pressure in PF with exercise. 05/04/23: Started period this week, so having pelvic pain. 06/28/23: Hasn't done strenous ex, notices bulge/ pressure during period. LTG Duration 12 wks more-09/25/23 Two Impairment Increased frequency of urination. Impairment Urinary voiding 1-2 more times immediately after voiding throughout the day. Short Term Goal (STG) Decrease frequency that pt needs to void immediately after voiding to 1x/day. 05/04/23: Sometimes has to void immediately after voiding at night. 06/04/23: Voiding every 2 hrs in AM, every hour after 1p, 2 nighttime voids, not immediately after each other. 24: No longer voiding immediately after voiding. Frequency of urination ~every 1.5 hrs and can sleep through the night. STG Duration 6 wks more-08/09/23 (: Reports goal met for 1st time) Hot Blaster Goal (LTG) Decrease freqency of urination to every 2-3 hours. : Frequency of urination ~every 1.5 hrs. Not voiding immediately after voiding. 07/09/23: No change LTG Duration 12 wks more-09/25/23 no change since 06/28/23. One Impairment Pt lacks appropriate self care HEP. Short Term Goal (STG) Pt will be educated in proper PF contractions, vulvar/ genital care. 04/16/23: Pt educated in Kegels. 05/04/23: Pt educated in vulvar and genital care. STG Duration 3 wks-04/16/23 (05/04/23: MET GOAL) Retirement Goal (LTG) Pt will be independent with a self care HEP of PF/core strengthening and hip ROM exercises. 05/04/23: Issued HEP: [place] stretch to abdomen. 06/04/23: HEP: Hip flexor stretch (laurel test position) LTG Duration 12 wks more-09/25/23 progressed 06/04/23 Assessment Summary Assessment Pt is being seen for cystocele , rectocele and possible urethrocele. She has PF active trP's and frequent urination complaints. LBP & neck pain since first that persist. Lower back has lately been better, still getting neck pain and frequent urination druing day (hourly). Drinking mostly 1/2 body wg in ozs. Able to palpate a good contraction of PF on L side after stretching. Pt has obvious pain with palpation of PF at ?Ischiotub Lig. Need to assess strength of PF and ability to relax. Physical Therapy Plan Frequency and Duration Frequency of Treatment 1x/Week Duration of treatment (weeks) 12 Plan of Care Start Date 06/28/23 Plan of Care End Date 09/25/23 Next Visit Focus/Plan Next Note Type Treatment Note Next Visit Plan Next: Assess PF strength and ability to relax. Assess/ treat for active trigger points (mostly on the left side of PF) & add MFR to hip AD's, add: hip flexor and LB stretching & check/stretch abdominal mobs. Further bladder retraining (extending time between voids) with ultimate goal of 2 hrs btn voids. Review/training for transfer with coordination of breathing (relax of PF). Manual: Start LB/neck therapy. Ex's: hip IR stretching; Progress PF (on wedge and runner man PF) & hip strengthening to decrease feeling of bulge and PF pressure. Vemg: if Stim, afterwards might need PF stretching if increase in tightness or # of voids.
--- NOTE | 2023-09-03 16:17 | PT.OTN ---
Current Diagnoses Cervicalgia (09/03/23) Low back pain, unspecified (09/03/23) Cystocele, unspecified (09/03/23) Retention of urine, unspecified (09/03/23) Physical Therapy Treatment Note PT-OP-A Visit Information Start: 03/18/23 17:50 Freq: Status: Active Protocol: Document 09/03/23 14:28 LRN (Rec: 09/03/23 16:15 LRN [id number]) Out-Patient Physical Therapy Visit Information Visit Information Visit Type Progress Note Visit Start Time 14:30 Visit Stop Time 15:27 Visit Number 04/06 Evaluation Information Evaluation Date 03/26/23 Precautions Precautions LBP/neck pain. Wgt is 157# PT-OP-B Current Condition Start: 03/18/23 17:50 Freq: Status: Active Protocol: Document 03/26/23 15:07 LRN (Rec: 03/26/23 16:58 LRN [id number]) Current Condition History of Current Condition Onset Date 2014 Current Complaints High frequency of urination and has PF bulge w/sometimes pressure and LBP History of Current Condition States she has LBP and PF dysfunction after carrying 4 large babies. LBP started after first . Just before her period LBP is severe and pain is present after prolonged standing. States when lying on stomach LB feel like something is dislocating. She complains of high frequency of urination and feeling of bulge and pressure in the PF. Prior Treatments and Tests Pelvic Ultrasound and was told her bladder looked good. Future Testing and Treatments Planned No Developmental History Developmental History 4Gravida, 4Parety: Births: , 11/05/2013, 2016, 08/19/2018 (ages 11, 10, 6 , 4). Treatment Goals Patient/Caregiver Goals Pt goals: Reduce back pain. Decrease feeling of bulge and pressure in PF with exercise. Decrease freqency of urination . Personal Factors Other Personal Factors That May Effect Neck pain/headaches after Therapy/Recovery childbearing, anxiety not controlled by meds. 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 PT-OP-C Subjective Start: 03/18/23 17:50 Freq: Status: Active Protocol: Document 09/03/23 14:28 LRN (Rec: 09/03/23 16:15 LRN [id number]) OP-PT Subjective Patient Comments Patient Comments Hasn't felt leakage and not bulging. Has stopped the strenous work outs (bouncing and jumping). Youngest just turned 5 yo. LBP is less, mostly having neck/shoulder pain. Cut coffee so not urinating as often. PF pressure first 2 days before period. Patient Questionnaires Pelvic Pain and Urgency/Frequency Patient Symptom Scale Pelvic Pain Score 11 PT-OP-H Neuro Start: 03/18/23 17:50 Freq: Status: Active Protocol: Document 03/26/23 15:07 LRN (Rec: 03/26/23 16:58 LRN [id number]) Sensation Evaluation Gross Sensation Gross Sensation WNL PT-OP-I Pelvic Floor Start: 03/18/23 17:50 Freq: Status: Active Protocol: Document 09/03/23 14:28 LRN (Rec: 09/03/23 16:15 LRN [id number]) Pelvic Floor Assessment Urine Urinary Symptoms Dribbling After Urination Other Urinary Symptoms Vaginal pain when on period first couple days of period. Standing is painful. Leakage Cause Exercise Other Leakage Causes Exercise jumping. Crosses knees with big sneeze. Bowel Other Bowel Symptoms Variable constipation. Sudden pain in abdomen (upper middle and lower right), after attack has diahrrea. Tagament helps relieve the pain, but then is gaseous. Bowel Movement Frequency 1 or everyother day. Pelvic Clock Pelvic Clock 3-6 Hypertonic Pelvic Clock 6-9 Tenderness Pelvic Clock Other 3-5 tender, 7-8 tender. Prolapse Cystocele Grade 3 Prolapse Comments Uterine drop Perineal Descent Resting Absent Bearing Present SEMG (uV) Quick Contraction 8.8 Contraction Ability Manual Muscle Testing Left 3 Manual Muscle Testing Right 2 Manual Muscle Testing Anterior 3 Manual Muscle Testing Posterior 2 Muscle Endurance (Seconds) 3 Number of Quick Contractions In 10 7 Seconds Comments Pelvic Floor Comments Quick Flicks: 10 reps strength (uV's): avg work 8.8, avg rest 7.7. 20 reps strength (uV's): avg work 8.7, avg rest 7.3. Long Holds: 10 reps strength (uV's): avg work 9.7, avg rest 4.4. 20 reps strength (uV's): avg work 9.1, avg rest 3.6. PT-OP-J Posture/Palpation/Skin Start: 03/18/23 17:50 Freq: Status: Active Protocol: Document 03/26/23 15:07 LRN (Rec: 03/26/23 16:58 LRN [id number]) Posture Evaluation Position Standing T-Spine Posture Flattened L-Spine Posture Increased Lordosis Shoulder Posture Neutral Pelvis Posture Anteriorly Tilted Comments Posture Comments R PSIS is high and slightly posterior, L4-L5 angled left. Palpation Assessment Location Neck pain Palpation Location Cervical paraspinals and bilateral UT's Palpation Findings Soft Tissue Tightness, Tenderness Low Back Palpation Location L4-L5 and sacrum Palpation Details Standing: No tenderness, but location above is where her reported pain is with prolonged standing or before menstration. Prone: Tenderness with PA pressure. PT-OP-K Range of Motion Start: 03/18/23 17:50 Freq: Status: Active Protocol: Document 03/26/23 15:07 LRN (Rec: 03/26/23 16:58 LRN [id number]) Lumbar Spine Range of Motion Lumbar Spine Active Degrees Testing Position Standing Flexion 110 Extension 30 Rotation Left 30 Rotation Right 30 Lateral Flexion Left 25 Lateral Flexion Right 20 Comments Trunk AROM: Flexion is 110 deg?s with 60 deg?s hip flexion, Trunk extension is 30 deg?s with 20 deg?s hip extension. Hip Goniometric Range of Motion Hip Right Passive Testing Position Supine Internal Rotation 40 External Rotation 70 Left Passive Testing Position Supine Internal Rotation 35 External Rotation 70 PT-OP-L Special Tests Start: 03/18/23 17:50 Freq: Status: Active Protocol: Document 03/26/23 15:07 LRN (Rec: 03/26/23 16:58 LRN [id number]) Special Tests Lumbar Spine Special Tests Straight Leg Raise Test Results - bilaterally PT-OP-M Strength Start: 03/18/23 17:50 Freq: Status: Active Protocol: Document 03/26/23 15:07 LRN (Rec: 03/26/23 16:58 LRN [id number]) Trunk Strength Trunk Manual Muscle Testing Core Stabilization Loss of core rotational stability with MMT of hip ext. Hip Strength Hip Manual Muscle Testing Right Comments Strength is 5/5 Left Flexion (L2) 4 Good External Rotation 4+ Good+ Comments Strength is 5/5 except as indicated above PT-OP-Q Treatments Start: 03/18/23 17:50 Freq: Status: Active Protocol: Document 09/03/23 14:28 LRN (Rec: 09/03/23 16:15 [facility] [id number]) Therapeutic Exercises Supine Exercises PF Long Hold >< Supine Exercise Name PF Long Hold >< Reps/Minutes 10 sec hold (SH) x 2 Comments Cuing to isolate PF, see PF assessment above PF Quick >< Supine Exercise Name PF Quick >< Reps/Minutes 2 SH x 20 Comments Cuing to isolate PF, see PF assessment above PF isolated Supine Exercise Name PF isolated contractions Long hold & Quick w/Vemg electrode Equipment Used Extra time for pt to don/doff Vemg electrode. Reps/Minutes 25' Comments Long Hold: 10 sec hold (SH)/10 sec rest; Quick: 2 SH/2 SR Neuro Re-Education Treatment Other Activities PF resting awareness Details Vemg for resting of PF Reps/Duration 11' Comments Cuing to push out on PF verbally and with phys cuing ( back of hand on perineum). V. Cuing on inhale to pushing out PF Self-Care/Home Management Treatment Education Other Education Discussed pt's POC and goals, pt agreeable. Discussed adding aerobic ex premenstrually for vaginal pain onset 2 days of start of cycle. Discussed pt to do bladder diary for noting urinary frequency. PT-OP-T Assessment and Plan Start: 03/18/23 17:50 Freq: Status: Active Protocol: Document 09/03/23 14:28 LRN (Rec: 09/03/23 16:15 [facility] [id number]) Physical Therapy Assessment Rehab Potential Rehabilitation Potential Good Evaluation Complexity Number of Personal Factors/Comorbidities 3 or More Number of Body Systems Impaired 4 or More Clinical Presentation at Evaluation Evolving Impairments Impairments Activity Tolerance,Pain, Posture,ROM,Soft Tissue Mobility,Strength,Transfers Goals Five Impairment PF/vaginal pain first 2 days of period. Supervisor Paint Goal (LTG) Decrease intensity of vaginal pain first 2 days of period. LTG Duration 8 wks-10/29/23 Four Impairment Low back pain with prolonged standing Short Term Goal (STG) Pt will be able to stabilize her core with MMT of hip extension. STG Duration 4 wks more-10/01/23 Halfway Goal (LTG) Reduce back pain with pt able to manage her pain with core stabilization. 06/28/23: LBP hasn't been as bad, hasn't noticed it. Having lateral hip pain (L>R). 07/09/23: Pt reporting LBP is fine. LTG Duration (07/09/23: MET GOAL) Three Impairment Bulge pressure in PF with exercise. Short Term Goal (STG) Education in proper methods for transfer with coordination of breathing. 03/26/23: Pt educated in transfer supine>sit coordinating breathing. 04/16/23: Pt educated in transfers sit<>sup<>stand coordinating breathing. STG Duration (04/16/23: MET GOAL) Supervisor Paint Goal (LTG) Decrease feeling of bulge and pressure in PF with exercise. 05/04/23: Started period this week, so having pelvic pain. 06/28/23: Hasn't done strenous ex, notices bulge/ pressure during period. 09/03/23: Hasn't done strenous ex, no bulging noted. LTG Duration (09/03/23: MET GOAL) Two Impairment Increased frequency of urination. Impairment Urinary voiding 1-2 more times immediately after voiding throughout the day. Short Term Goal (STG) Decrease frequency that pt needs to void immediately after voiding to 1x/day. 05/04/23: Sometimes has to void immediately after voiding at night. 06/04/23: Voiding every 2 hrs in AM, every hour after 1p, 2 nighttime voids, not immediately after each other. : No longer voiding immediately after voiding. Frequency of urination ~every 1.5 hrs and can sleep through the night. STG Duration 4 wks more-10/01/23 (: Reports goal met for 1st time) Halfway Goal (LTG) Decrease freqency of urination to every 2-3 hours. : Frequency of urination ~every 1.5 hrs. Not voiding immediately after voiding. 07/09/23: No change LTG Duration 8 wks-10/29/23 no change since 06/28/23. One Impairment Pt lacks appropriate self care HEP. Short Term Goal (STG) Pt will be educated in proper PF contractions, vulvar/ genital care. 04/16/23: Pt educated in Kegels. 05/04/23: Pt educated in vulvar and genital care. STG Duration (05/04/23: MET GOAL) Supervisor Paint Goal (LTG) Pt will be independent with a self care HEP of PF/core strengthening and hip ROM exercises. 05/04/23: Issued HEP: [place] stretch to abdomen. 06/04/23: HEP: Hip flexor stretch (laurel test position) LTG Duration 8 wks-10/29/23 progressed Assessment Summary Assessment Pt was initially being seen for cystocele, rectocele and possible urethrocele. She returns after 2 months demonstrating cystocele, drop of uterus, and palpable extra tissue in rectum area. The pt had a break in her therapy due to scheduling difficulties . She now reports reduction of symptoms of heaviness in pelvic region, reduced back pain, and no feeling of bulging of her PF (although has stopped her active jumping , running exercise). She has a new symptom of vaginal pain the first 2 days of her period that may improve with increased cardio exercise ( walking) and relaxation training of PF. The pt would benefit from continued skilled physical therapy to improve abdominal and PF mobility ( manual therapy), reduction of intra-abdominal pressure with exercise, decreasing urinary frequency, and progression of her HEP. Physical Therapy Plan Frequency and Duration Frequency of Treatment 1x/Week Duration of treatment (weeks) 8 Plan of Care Start Date 09/03/23 Plan of Care End Date 10/29/23 Therapeutic Interventions Therapeutic Interventions Home Exercise Program,Manual Therapy,Neuromuscular Re- education,Self-Care/Home Management,Soft Tissue Mobilization,Therapeutic Activities,Therapeutic Exercises Modalities Biofeedback,Electric Stimulation Next Visit Focus/Plan Next Note Type Treatment Note Next Visit Plan Next: Assess/treat for active trigger points (3-5 & 7 -8 PF clock) & add MFR to hip AD's, add: hip flexor and LB stretching & check/stretch abdominal mobs (center below sternum and R side. Bladder retraining if needed ( extending time between voids) with ultimate goal of 2 hrs btn voids. Review/training for transfer with coordination of breathing (add relax of PF). Manual: neck therapy, GI/ abdomen, PF trP treatment. Ex's: hip IR stretching; Progress PF relaxation with breathwork. Vemg: for PF relaxation training after contraction.
--- NOTE | 2023-09-03 16:17 | PT.OPPOC ---
Physical, Occupational & Speech Therapy At [facility] Current Diagnoses Cervicalgia (09/03/23) Low back pain, unspecified (09/03/23) Cystocele, unspecified (09/03/23) Retention of urine, unspecified (09/03/23) Visit Care Team Role Provider Type Farzad Ruvalcaba MD Family Provider Physician Primary Care Provider Specialty: Family Practice Address: [address] [place] [address], [address], [place], [address] Email: [email or web address] Gina Fernandez CNM Attending Provider Advanced Patient Financial Rep Referring Provider Specialty: DISASSEMBLER Address: [address] [place] [address], [address], [place], [address] Email: [email or web address] Plan Of Care PT-OP-T Assessment and Plan Start: 03/18/23 17:50 Freq: Status: Active Protocol: Document 09/03/23 14:28 LRN (Rec: 09/03/23 16:15 LRN [id number]) Physical Therapy Assessment Rehab Potential Rehabilitation Potential Good Evaluation Complexity Number of Personal Factors/Comorbidities 3 or More Number of Body Systems Impaired 4 or More Clinical Presentation at Evaluation Evolving Impairments Impairments Activity Tolerance,Pain, Posture,ROM,Soft Tissue Mobility,Strength,Transfers Goals Five Impairment PF/vaginal pain first 2 days of period. Logging Engineer Goal (LTG) Decrease intensity of vaginal pain first 2 days of period. LTG Duration 8 wks-10/29/23 Four Impairment Low back pain with prolonged standing Short Term Goal (STG) Pt will be able to stabilize her core with MMT of hip extension. STG Duration 4 wks more-10/01/23 Snf Goal (LTG) Reduce back pain with pt able to manage her pain with core stabilization. 06/28/23: LBP hasn't been as bad, hasn't noticed it. Having lateral hip pain (L>R). 07/09/23: Pt reporting LBP is fine. LTG Duration (07/09/23: MET GOAL) Three Impairment Bulge pressure in PF with exercise. Short Term Goal (STG) Education in proper methods for transfer with coordination of breathing. 03/26/23: Pt educated in transfer supine>sit coordinating breathing. 04/16/23: Pt educated in transfers sit<>sup<>stand coordinating breathing. STG Duration (04/16/23: MET GOAL) Logging Engineer Goal (LTG) Decrease feeling of bulge and pressure in PF with exercise. 05/04/23: Started period this week, so having pelvic pain. 06/28/23: Hasn't done strenous ex, notices bulge/ pressure during period. 09/03/23: Hasn't done strenous ex, no bulging noted. LTG Duration (09/03/23: MET GOAL) Two Impairment Increased frequency of urination. Impairment Urinary voiding 1-2 more times immediately after voiding throughout the day. Short Term Goal (STG) Decrease frequency that pt needs to void immediately after voiding to 1x/day. 05/04/23: Sometimes has to void immediately after voiding at night. 06/04/23: Voiding every 2 hrs in AM, every hour after 1p, 2 nighttime voids, not immediately after each other. 06/28:24: No longer voiding immediately after voiding. Frequency of urination ~every 1.5 hrs and can sleep through the night. STG Duration 4 wks more-10/01/23 (: Reports goal met for 1st time) Logging Engineer Goal (LTG) Decrease freqency of urination to every 2-3 hours. 06/28:24: Frequency of urination ~every 1.5 hrs. Not voiding immediately after voiding. 07/09/23: No change LTG Duration 8 wks-10/29/23 no change since 06/28/23. One Impairment Pt lacks appropriate self care HEP. Short Term Goal (STG) Pt will be educated in proper PF contractions, vulvar/ genital care. 04/16/23: Pt educated in Kegels. 05/04/23: Pt educated in vulvar and genital care. STG Duration (05/04/23: MET GOAL) Logging Engineer Goal (LTG) Pt will be independent with a self care HEP of PF/core strengthening and hip ROM exercises. 05/04/23: Issued HEP: [place] stretch to abdomen. 06/04/23: HEP: Hip flexor stretch (laurel test position) LTG Duration 8 wks-10/29/23 progressed Assessment Summary Assessment Pt was initially being seen for cystocele, rectocele and possible urethrocele. She returns after 2 months demonstrating cystocele, drop of uterus, and palpable extra tissue in rectum area. The pt had a break in her therapy due to scheduling difficulties . She now reports reduction of symptoms of heaviness in pelvic region, reduced back pain, and no feeling of bulging of her PF (although has stopped her active jumping , running exercise). She has a new symptom of vaginal pain the first 2 days of her period that may improve with increased cardio exercise ( walking) and relaxation training of PF. The pt would benefit from continued skilled physical therapy to improve abdominal and PF mobility ( manual therapy), reduction of intra-abdominal pressure with exercise, decreasing urinary frequency, and progression of her HEP. Physical Therapy Plan Frequency and Duration Frequency of Treatment 1x/Week Duration of treatment (weeks) 8 Plan of Care Start Date 09/03/23 Plan of Care End Date 10/29/23 Therapeutic Interventions Therapeutic Interventions Home Exercise Program,Manual Therapy,Neuromuscular Re- education,Self-Care/Home Management,Soft Tissue Mobilization,Therapeutic Activities,Therapeutic Exercises Modalities Biofeedback,Electric Stimulation Next Visit Focus/Plan Next Note Type Treatment Note Next Visit Plan Next: Assess/treat for active trigger points (3-5 & 7 -8 PF clock) & add MFR to hip AD's, add: hip flexor and LB stretching & check/stretch abdominal mobs (center below sternum and R side. Bladder retraining if needed ( extending time between voids) with ultimate goal of 2 hrs btn voids. Review/training for transfer with coordination of breathing (add relax of PF). Manual: neck therapy, GI/ abdomen, PF trP treatment. Ex's: hip IR stretching; Progress PF relaxation with breathwork. Vemg: for PF relaxation training after contraction. Plan of Care Dates Plan of Care Start Date 09/03/23 Plan of Care End Date 10/29/23 Electronically Signed by: Anai Iraheta, PT 09/03/23 [id number] If you are in agreement with this Plan of Care, please return a signed and dated copy. I have reviewed this Plan of Care and certify that the skilled therapy services above are required to meet the patient?s needs. Physician Signature Date Printed Name and Credentials Clinical Instructor Signature Printed Name and Credentials
--- NOTE | 2023-09-10 16:35 | PT.OTN ---
Current Diagnoses Cervicalgia (09/10/23) Low back pain, unspecified (09/10/23) Cystocele, unspecified (09/10/23) Retention of urine, unspecified (09/10/23) Physical Therapy Treatment Note PT-OP-A Visit Information Start: 03/18/23 17:50 Freq: Status: Active Protocol: Document 09/10/23 09:07 LRN (Rec: 09/10/23 09:55 LRN [id number]) Out-Patient Physical Therapy Visit Information Visit Information Visit Type Treatment Note Visit Start Time 09:07 Visit Stop Time 09:54 Visit Number 05/07 Evaluation Information Evaluation Date 03/26/23 Precautions Precautions LBP/neck pain. Wgt is 157# PT-OP-B Current Condition Start: 03/18/23 17:50 Freq: Status: Active Protocol: Document 03/26/23 15:07 LRN (Rec: 03/26/23 16:58 LRN [id number]) Current Condition History of Current Condition Onset Date 2014 Current Complaints High frequency of urination and has PF bulge w/sometimes pressure and LBP History of Current Condition States she has LBP and PF dysfunction after carrying 4 large babies. LBP started after first . Just before her period LBP is severe and pain is present after prolonged standing. States when lying on stomach LB feel like something is dislocating. She complains of high frequency of urination and feeling of bulge and pressure in the PF. Prior Treatments and Tests Pelvic Ultrasound and was told her bladder looked good. Future Testing and Treatments Planned No Developmental History Developmental History 4Gravida, 4Parety: Births: , 11/05/2013, 2016, 08/19/2018 (ages 11, 10, 6 , 4). Treatment Goals Patient/Caregiver Goals Pt goals: Reduce back pain. Decrease feeling of bulge and pressure in PF with exercise. Decrease freqency of urination . Personal Factors Other Personal Factors That May Effect Neck pain/headaches after Therapy/Recovery childbearing, anxiety not controlled by meds. 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 PT-OP-C Subjective Start: 03/18/23 17:50 Freq: Status: Active Protocol: Document 09/10/23 09:07 LRN (Rec: 09/10/23 09:55 LRN [id number]) OP-PT Subjective Patient Comments Patient Comments Having shooting pain down L neck into the L shoulder, anterior chest and thumb. Prefers treatment today to L neck/shoulder/Thumb. PT-OP-H Neuro Start: 03/18/23 17:50 Freq: Status: Active Protocol: Document 03/26/23 15:07 LRN (Rec: 03/26/23 16:58 LRN [id number]) Sensation Evaluation Gross Sensation Gross Sensation WNL PT-OP-I Pelvic Floor Start: 03/18/23 17:50 Freq: Status: Active Protocol: Document 09/03/23 14:28 LRN (Rec: 09/03/23 16:15 LRN [id number]) Pelvic Floor Assessment Urine Urinary Symptoms Dribbling After Urination Other Urinary Symptoms Vaginal pain when on period first couple days of period. Standing is painful. Leakage Cause Exercise Other Leakage Causes Exercise jumping. Crosses knees with big sneeze. Bowel Other Bowel Symptoms Variable constipation. Sudden pain in abdomen (upper middle and lower right), after attack has diahrrea. Tagament helps relieve the pain, but then is gaseous. Bowel Movement Frequency 1 or everyother day. Pelvic Clock Pelvic Clock 3-6 Hypertonic Pelvic Clock 6-9 Tenderness Pelvic Clock Other 3-5 tender, 7-8 tender. Prolapse Cystocele Grade 3 Prolapse Comments Uterine drop Perineal Descent Resting Absent Bearing Present SEMG (uV) Quick Contraction 8.8 Contraction Ability Manual Muscle Testing Left 3 Manual Muscle Testing Right 2 Manual Muscle Testing Anterior 3 Manual Muscle Testing Posterior 2 Muscle Endurance (Seconds) 3 Number of Quick Contractions In 10 7 Seconds Comments Pelvic Floor Comments Quick Flicks: 10 reps strength (uV's): avg work 8.8, avg rest 7.7. 20 reps strength (uV's): avg work 8.7, avg rest 7.3. Long Holds: 10 reps strength (uV's): avg work 9.7, avg rest 4.4. 20 reps strength (uV's): avg work 9.1, avg rest 3.6. PT-OP-J Posture/Palpation/Skin Start: 03/18/23 17:50 Freq: Status: Active Protocol: Document 03/26/23 15:07 LRN (Rec: 03/26/23 16:58 LRN [id number]) Posture Evaluation Position Standing T-Spine Posture Flattened L-Spine Posture Increased Lordosis Shoulder Posture Neutral Pelvis Posture Anteriorly Tilted Comments Posture Comments R PSIS is high and slightly posterior, L4-L5 angled left. Palpation Assessment Location Neck pain Palpation Location Cervical paraspinals and bilateral UT's Palpation Findings Soft Tissue Tightness, Tenderness Low Back Palpation Location L4-L5 and sacrum Palpation Details Standing: No tenderness, but location above is where her reported pain is with prolonged standing or before menstration. Prone: Tenderness with PA pressure. PT-OP-K Range of Motion Start: 03/18/23 17:50 Freq: Status: Active Protocol: Document 03/26/23 15:07 LRN (Rec: 03/26/23 16:58 LRN [id number]) Lumbar Spine Range of Motion Lumbar Spine Active Degrees Testing Position Standing Flexion 110 Extension 30 Rotation Left 30 Rotation Right 30 Lateral Flexion Left 25 Lateral Flexion Right 20 Comments Trunk AROM: Flexion is 110 deg?s with 60 deg?s hip flexion, Trunk extension is 30 deg?s with 20 deg?s hip extension. Hip Goniometric Range of Motion Hip Right Passive Testing Position Supine Internal Rotation 40 External Rotation 70 Left Passive Testing Position Supine Internal Rotation 35 External Rotation 70 PT-OP-L Special Tests Start: 03/18/23 17:50 Freq: Status: Active Protocol: Document 03/26/23 15:07 LRN (Rec: 03/26/23 16:58 LRN [id number]) Special Tests Lumbar Spine Special Tests Straight Leg Raise Test Results - bilaterally PT-OP-M Strength Start: 03/18/23 17:50 Freq: Status: Active Protocol: Document 03/26/23 15:07 LRN (Rec: 03/26/23 16:58 LRN [id number]) Trunk Strength Trunk Manual Muscle Testing Core Stabilization Loss of core rotational stability with MMT of hip ext. Hip Strength Hip Manual Muscle Testing Right Comments Strength is 5/5 Left Flexion (L2) 4 Good External Rotation 4+ Good+ Comments Strength is 5/5 except as indicated above PT-OP-Q Treatments Start: 03/18/23 17:50 Freq: Status: Active Protocol: Document 09/10/23 09:07 LRN (Rec: 09/10/23 09:55 LRN [id number]) Therapeutic Exercises Supine Exercises Neck Elongation Supine Exercise Name Neck elongation training Reps/Minutes 9' Comments Extra time needed for proper performance of deep c. neck flexor contraction Sidelying Exercises Open book Sidelying Exercise Name Open book stretch Side bilateral Equipment Used Noted restriction with R rot. Reps/Minutes 5 SH x 8 each Comments Extra time to determine max servando mvmt for proper stretch. Manual Therapy Treatment Soft Tissue Mobilization Neck/UT/midback Body Location Neck: L UT, anterior scalenes, and pecs Mobilization Type Sustained Pressure,Trigger Point Release Intensity/Depth Superficial to moderate Body Position Supine Comments TrP at Clavicle. Stretch to scalenes & UT. Manual Traction Cervical Details Axial & C5-C6-C7, manual and trial C. tx unity Body Position Supine Reps/Duration 14' Comments Extra time taken: Started with manual axial and targeted traction of C5-C6-C7; f/b Trial of White C. tx in 3 different neck flexion positions: ~20, 30, 50 deg's. Pt had no symptom change with Saunder's tx; therefore switched to manual traction x 3 minutes at ~60 deg's traction. Self-Care/Home Management Treatment Education Other Education Review of bladder diary, discussed frequency of urinations, better on days w/o BM. PT-OP-T Assessment and Plan Start: 03/18/23 17:50 Freq: Status: Active Protocol: Document 09/10/23 09:07 LRN (Rec: 09/10/23 09:55 LRN [id number]) Physical Therapy Assessment Goals Five Impairment PF/vaginal pain first 2 days of period. Vehicle Trimmer Goal (LTG) Decrease intensity of vaginal pain first 2 days of period. LTG Duration 8 wks-10/29/23 Four Impairment Low back pain with prolonged standing Short Term Goal (STG) Pt will be able to stabilize her core with MMT of hip extension. STG Duration 4 wks more-10/01/23 Usp Goal (LTG) Reduce back pain with pt able to manage her pain with core stabilization. 06/28/23: LBP hasn't been as bad, hasn't noticed it. Having lateral hip pain (L>R). 07/09/23: Pt reporting LBP is fine. LTG Duration (07/09/23: MET GOAL) Three Impairment Bulge pressure in PF with exercise. Short Term Goal (STG) Education in proper methods for transfer with coordination of breathing. 03/26/23: Pt educated in transfer supine>sit coordinating breathing. 04/16/23: Pt educated in transfers sit<>sup<>stand coordinating breathing. STG Duration (04/16/23: MET GOAL) Vehicle Trimmer Goal (LTG) Decrease feeling of bulge and pressure in PF with exercise. 05/04/23: Started period this week, so having pelvic pain. 06/28/23: Hasn't done strenous ex, notices bulge/ pressure during period. 09/03/23: Hasn't done strenous ex, no bulging noted. LTG Duration (09/03/23: MET GOAL) Two Impairment Increased frequency of urination. Impairment Urinary voiding 1-2 more times immediately after voiding throughout the day. Short Term Goal (STG) Decrease frequency that pt needs to void immediately after voiding to 1x/day. 05/04/23: Sometimes has to void immediately after voiding at night. 06/04/23: Voiding every 2 hrs in AM, every hour after 1p, 2 nighttime voids, not immediately after each other. 06/28:24: No longer voiding immediately after voiding. Frequency of urination ~every 1.5 hrs and can sleep through the night. STG Duration 4 wks more-10/01/23 (: Reports goal met for 1st time) Vehicle Trimmer Goal (LTG) Decrease freqency of urination to every 2-3 hours. 06/28:24: Frequency of urination ~every 1.5 hrs. Not voiding immediately after voiding. 07/09/23: No change LTG Duration 8 wks-10/29/23 no change since 06/28/23. One Impairment Pt lacks appropriate self care HEP. Short Term Goal (STG) Pt will be educated in proper PF contractions, vulvar/ genital care. 04/16/23: Pt educated in Kegels. 05/04/23: Pt educated in vulvar and genital care. STG Duration (05/04/23: MET GOAL) Usp Goal (LTG) Pt will be independent with a self care HEP of PF/core strengthening and hip ROM exercises. 05/04/23: Issued HEP: [place] stretch to abdomen. 06/04/23: HEP: Hip flexor stretch (laurel test position) LTG Duration 8 wks-10/29/23 progressed Assessment Summary Assessment Pt initially being seen for cystocele, rectocele and possible urethrocele. Bladder diary review indicates on days w/o BM she appears to be urinating every 2 hrs, but on days after BM's (stool type 2) she has increased urination ( sometimes 2 in an hour). Abdominal STM mobs may be beneficial in lengthening times between voids. Today, pt c/o L neck, shoulder, thumb pain. + C. involvement for L thumb, neck pain relieved with traction at C6-C7; no improvement in L shoulder pain . Her L anterior shoulder/pec region appears swollen. + Median n. tension, but -radial & -ulnar tension noted; therefore L shoulder pain may be soft tissue (swelling) related. Physical Therapy Plan Frequency and Duration Frequency of Treatment 1x/Week Duration of treatment (weeks) 8 Plan of Care Start Date 09/03/23 Plan of Care End Date 10/29/23 Next Visit Focus/Plan Next Note Type Treatment Note Next Visit Plan Next: Check response to c. tx/stm to pecs/anter scalenes. Assess/treat for active trigger points (3-5 & 7-8 PF clock). Add MFR to hip AD's and GI/abdomen, Add: hip flexor and LB stretching & check/stretch abdominal mobs ( center below sternum and R side. Bladder retraining if needed ( extending time between voids) with ultimate goal of 2 hrs btn voids. Review/training for transfer with coordination of breathing (add relax of PF). Manual: neck therapy, PF trP treatment. Ex's: hip IR stretching; Progress PF relaxation with breathwork. Vemg: for PF relaxation training after contraction. POC: PF tight rehab, coordinated PF contraction, neck/back pain rehab.
--- NOTE | 2023-09-17 16:26 | PT.OTN ---
Current Diagnoses Cervicalgia (09/17/23) Low back pain, unspecified (09/17/23) Cystocele, unspecified (09/17/23) Retention of urine, unspecified (09/17/23) Physical Therapy Treatment Note PT-OP-A Visit Information Start: 03/18/23 17:50 Freq: Status: Active Protocol: Document 09/17/23 07:22 LRN (Rec: 09/17/23 09:07 LRN [id number]) Out-Patient Physical Therapy Visit Information Visit Information Visit Type Treatment Note Visit Start Time 08:25 Visit Stop Time 09:05 Visit Number 06/06 Evaluation Information Evaluation Date 03/26/23 Precautions Precautions LBP/neck pain. Wgt is 157# PT-OP-B Current Condition Start: 03/18/23 17:50 Freq: Status: Active Protocol: Document 03/26/23 15:07 LRN (Rec: 03/26/23 16:58 LRN [id number]) Current Condition History of Current Condition Onset Date 2014 Current Complaints High frequency of urination and has PF bulge w/sometimes pressure and LBP History of Current Condition States she has LBP and PF dysfunction after carrying 4 large babies. LBP started after first . Just before her period LBP is severe and pain is present after prolonged standing. States when lying on stomach LB feel like something is dislocating. She complains of high frequency of urination and feeling of bulge and pressure in the PF. Prior Treatments and Tests Pelvic Ultrasound and was told her bladder looked good. Future Testing and Treatments Planned No Developmental History Developmental History 4Gravida, 4Parety: Births: , 11/05/2013, 2016, [birth year]2020 (ages 11, 10, 6 , 4). Treatment Goals Patient/Caregiver Goals Pt goals: Reduce back pain. Decrease feeling of bulge and pressure in PF with exercise. Decrease freqency of urination . Personal Factors Other Personal Factors That May Effect Neck pain/headaches after Therapy/Recovery childbearing, anxiety not controlled by meds. 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 PT-OP-C Subjective Start: 03/18/23 17:50 Freq: Status: Active Protocol: Document 09/17/23 07:22 LRN (Rec: 09/17/23 09:07 LRN [id number]) OP-PT Subjective Patient Comments Patient Comments Was better after the last treatment in PF and hand feels better, mainly in neck. Just started period, no PF pain currently, expect pain when flow is hard, probably in couple days. PT-OP-H Neuro Start: 03/18/23 17:50 Freq: Status: Active Protocol: Document 03/26/23 15:07 LRN (Rec: 03/26/23 16:58 LRN [id number]) Sensation Evaluation Gross Sensation Gross Sensation WNL PT-OP-I Pelvic Floor Start: 03/18/23 17:50 Freq: Status: Active Protocol: Document 09/03/23 14:28 LRN (Rec: 09/03/23 16:15 LRN [id number]) Pelvic Floor Assessment Urine Urinary Symptoms Dribbling After Urination Other Urinary Symptoms Vaginal pain when on period first couple days of period. Standing is painful. Leakage Cause Exercise Other Leakage Causes Exercise jumping. Crosses knees with big sneeze. Bowel Other Bowel Symptoms Variable constipation. Sudden pain in abdomen (upper middle and lower right), after attack has diahrrea. Tagament helps relieve the pain, but then is gaseous. Bowel Movement Frequency 1 or everyother day. Pelvic Clock Pelvic Clock 3-6 Hypertonic Pelvic Clock 6-9 Tenderness Pelvic Clock Other 3-5 tender, 7-8 tender. Prolapse Cystocele Grade 3 Prolapse Comments Uterine drop Perineal Descent Resting Absent Bearing Present SEMG (uV) Quick Contraction 8.8 Contraction Ability Manual Muscle Testing Left 3 Manual Muscle Testing Right 2 Manual Muscle Testing Anterior 3 Manual Muscle Testing Posterior 2 Muscle Endurance (Seconds) 3 Number of Quick Contractions In 10 7 Seconds Comments Pelvic Floor Comments Quick Flicks: 10 reps strength (uV's): avg work 8.8, avg rest 7.7. 20 reps strength (uV's): avg work 8.7, avg rest 7.3. Long Holds: 10 reps strength (uV's): avg work 9.7, avg rest 4.4. 20 reps strength (uV's): avg work 9.1, avg rest 3.6. PT-OP-J Posture/Palpation/Skin Start: 03/18/23 17:50 Freq: Status: Active Protocol: Document 03/26/23 15:07 LRN (Rec: 03/26/23 16:58 LRN [id number]) Posture Evaluation Position Standing T-Spine Posture Flattened L-Spine Posture Increased Lordosis Shoulder Posture Neutral Pelvis Posture Anteriorly Tilted Comments Posture Comments R PSIS is high and slightly posterior, L4-L5 angled left. Palpation Assessment Location Neck pain Palpation Location Cervical paraspinals and bilateral UT's Palpation Findings Soft Tissue Tightness, Tenderness Low Back Palpation Location L4-L5 and sacrum Palpation Details Standing: No tenderness, but location above is where her reported pain is with prolonged standing or before menstration. Prone: Tenderness with PA pressure. PT-OP-K Range of Motion Start: 03/18/23 17:50 Freq: Status: Active Protocol: Document 03/26/23 15:07 LRN (Rec: 03/26/23 16:58 LRN [id number]) Lumbar Spine Range of Motion Lumbar Spine Active Degrees Testing Position Standing Flexion 110 Extension 30 Rotation Left 30 Rotation Right 30 Lateral Flexion Left 25 Lateral Flexion Right 20 Comments Trunk AROM: Flexion is 110 deg?s with 60 deg?s hip flexion, Trunk extension is 30 deg?s with 20 deg?s hip extension. Hip Goniometric Range of Motion Hip Right Passive Testing Position Supine Internal Rotation 40 External Rotation 70 Left Passive Testing Position Supine Internal Rotation 35 External Rotation 70 PT-OP-L Special Tests Start: 03/18/23 17:50 Freq: Status: Active Protocol: Document 03/26/23 15:07 LRN (Rec: 03/26/23 16:58 LRN [id number]) Special Tests Lumbar Spine Special Tests Straight Leg Raise Test Results - bilaterally PT-OP-M Strength Start: 03/18/23 17:50 Freq: Status: Active Protocol: Document 03/26/23 15:07 LRN (Rec: 03/26/23 16:58 LRN [id number]) Trunk Strength Trunk Manual Muscle Testing Core Stabilization Loss of core rotational stability with MMT of hip ext. Hip Strength Hip Manual Muscle Testing Right Comments Strength is 5/5 Left Flexion (L2) 4 Good External Rotation 4+ Good+ Comments Strength is 5/5 except as indicated above PT-OP-Q Treatments Start: 03/18/23 17:50 Freq: Status: Active Protocol: Document 09/17/23 07:22 LRN (Rec: 09/17/23 09:07 LRN [id number]) Therapeutic Exercises Supine Exercises Hip flexor stretch Supine Exercise Name Hip flexor stretch (laurel test position) Side bilateral Reps/Minutes 60 SH x 1, f/b active hip ext x 10 Comments Extra time taken to determine max tolerated stretch. Hip AD's Supine Exercise Name On Wedge/V-sit with heels on wall Reps/Minutes 2' Happy Baby Pose Supine Exercise Name Holding feet Reps/Minutes 3' Comments Pt holding inner arch of feet for stretch. Other Exercises Sphinx abdominal stretch Other Exercise Name Abdominal & PF stretch (on inhale) Reps/Minutes 8' Comments Extra time for coordinating breath/reverse Kegel Child's Pose Other Exercise Name Abdominal and PF stretch, f/b exhale for PF tightening Reps/Minutes x 2 over 5' Comments Extra time for coordinating breath/reverse Kegel Manual Therapy Treatment Soft Tissue Mobilization Hip AD's Body Location Nahun hip AD's at muscle belly Mobilization Type Strumming,Sustained Pressure, Trigger Point Release Comments Position: On wedge, legs elevated like resting on wall. PT-OP-T Assessment and Plan Start: 03/18/23 17:50 Freq: Status: Active Protocol: Document 09/17/23 07:22 LRN (Rec: 09/17/23 09:07 LRN [id number]) Physical Therapy Assessment Goals Five Impairment PF/vaginal pain first 2 days of strong flow of period. Group Home Goal (LTG) Decrease intensity of vaginal pain first 2 days of period. LTG Duration 8 wks-10/29/23 Four Impairment Low back pain with prolonged standing Short Term Goal (STG) Pt will be able to stabilize her core with MMT of hip extension. STG Duration 4 wks more-10/01/23 Adult Ministries Director Goal (LTG) Reduce back pain with pt able to manage her pain with core stabilization. 06/28/23: LBP hasn't been as bad, hasn't noticed it. Having lateral hip pain (L>R). 07/09/23: Pt reporting LBP is fine. LTG Duration (07/09/23: MET GOAL) Three Impairment Bulge pressure in PF with exercise. Short Term Goal (STG) Education in proper methods for transfer with coordination of breathing. 03/26/23: Pt educated in transfer supine>sit coordinating breathing. 04/16/23: Pt educated in transfers sit<>sup<>stand coordinating breathing. STG Duration (04/16/23: MET GOAL) Adult Ministries Director Goal (LTG) Decrease feeling of bulge and pressure in PF with exercise. 05/04/23: Started period this week, so having pelvic pain. 06/28/23: Hasn't done strenous ex, notices bulge/ pressure during period. 09/03/23: Hasn't done strenous ex, no bulging noted. LTG Duration (09/03/23: MET GOAL) Two Impairment Increased frequency of urination. Impairment Urinary voiding 1-2 more times immediately after voiding throughout the day. Short Term Goal (STG) Decrease frequency that pt needs to void immediately after voiding to 1x/day. 05/04/23: Sometimes has to void immediately after voiding at night. 06/04/23: Voiding every 2 hrs in AM, every hour after 1p, 2 nighttime voids, not immediately after each other. 24: No longer voiding immediately after voiding. Frequency of urination ~every 1.5 hrs and can sleep through the night. STG Duration 4 wks more-10/01/23 (: Reports goal met for 1st time) Adult Ministries Director Goal (LTG) Decrease freqency of urination to every 2-3 hours. 06/28:24: Frequency of urination ~every 1.5 hrs. Not voiding immediately after voiding. 07/09/23: No change LTG Duration 8 wks-10/29/23 no change since 06/28/23. One Impairment Pt lacks appropriate self care HEP. Short Term Goal (STG) Pt will be educated in proper PF contractions, vulvar/ genital care. 04/16/23: Pt educated in Kegels. 05/04/23: Pt educated in vulvar and genital care. STG Duration (05/04/23: MET GOAL) Group Home Goal (LTG) Pt will be independent with a self care HEP of PF/core strengthening and hip ROM exercises. 05/04/23: Issued HEP: [place] stretch to abdomen. 06/04/23: HEP: Hip flexor stretch (laurel test position) LTG Duration 8 wks-10/29/23 progressed Assessment Summary Assessment Pt initially being seen for cystocele, rectocele and possible urethrocele. Pt had a + response to treatment for neck pain, last session with reduction of arm pain, today having only neck pain; also + response to trP treatment session with less PF pain. Pt not able to perform neck elongation properly, tends to cause C7-T1 to protrude posterior more, instead of moving more into alignment. Less neck pain after treatment . Physical Therapy Plan Frequency and Duration Frequency of Treatment 1x/Week Duration of treatment (weeks) 8 Plan of Care Start Date 09/03/23 Plan of Care End Date 10/29/23 Next Visit Focus/Plan Next Note Type Progress Note Next Visit Plan POC: PF tight rehab, coordinated PF contraction, neck/back pain rehab. Next: New POC for 10-11 more visits. Further neck elongation training. Add MFR to hip AD's and GI/abdomen, Add: hip flexor and LB stretching & check/stretch abdominal mobs (center below sternum and R side). Bladder retraining if needed ( extending time between voids) with ultimate goal of 2 hrs btn voids. Review/training for transfers with coordination of breathing (add relax of PF). Manual: neck therapy, PF trP treatment. Ex's: hip IR stretching; Progress PF relaxation with breathwork. Vemg: for PF relaxation training after contraction.
--- NOTE | 2024-02-07 08:58 | PT.OPDS ---
Current Diagnoses Cervicalgia (09/17/23) Low back pain, unspecified (09/17/23) Cystocele, unspecified (09/17/23) Retention of urine, unspecified (09/17/23) Visit Care Team Role Provider Type Fazrad Ruvalcaba MD Family Provider Physician Primary Care Provider Specialty: Family Practice Address: [address] [place] [address], [address], [place], [address] Email: [email or web address] Gina Fernandez CNM Attending Provider [employer] Referring Provider Specialty: CARDIOLOGY CLINICAL NURSE SPECIALIST Address: [facility] [place] [address], [address], [place], [address] Email: [email or web address] Visit Number Visit Number 06/06 Discharge Summary PT-OP-B Current Condition Start: 03/18/23 17:50 Freq: Status: Active Protocol: Document 03/26/23 15:07 LRN (Rec: 03/26/23 16:58 LRN [id number]) Current Condition History of Current Condition Onset Date 2014 Current Complaints High frequency of urination and has PF bulge w/sometimes pressure and LBP History of Current Condition States she has LBP and PF dysfunction after carrying 4 large babies. LBP started after first . Just before her period LBP is severe and pain is present after prolonged standing. States when lying on stomach LB feel like something is dislocating. She complains of high frequency of urination and feeling of bulge and pressure in the PF. Prior Treatments and Tests Pelvic Ultrasound and was told her bladder looked good. Future Testing and Treatments Planned No Developmental History Developmental History 4Gravida, 4Parety: Births: , 11/05/2013, 2016, 08/19/2018 (ages 11, 10, 6 , 4). Treatment Goals Patient/Caregiver Goals Pt goals: Reduce back pain. Decrease feeling of bulge and pressure in PF with exercise. Decrease freqency of urination . Personal Factors Other Personal Factors That May Effect Neck pain/headaches after Therapy/Recovery childbearing, anxiety not controlled by meds. 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 PT-OP-C Subjective Start: 03/18/23 17:50 Freq: Status: Active Protocol: Document 09/17/23 07:22 LRN (Rec: 09/17/23 09:07 LRN [id number]) OP-PT Subjective Patient Comments Patient Comments Was better after the last treatment in PF and hand feels better, mainly in neck. Just started period, no PF pain currently, expect pain when flow is hard, probably in couple days. PT-OP-H Neuro Start: 03/18/23 17:50 Freq: Status: Active Protocol: Document 03/26/23 15:07 LRN (Rec: 03/26/23 16:58 LRN [id number]) Sensation Evaluation Gross Sensation Gross Sensation WNL PT-OP-I Pelvic Floor Start: 03/18/23 17:50 Freq: Status: Active Protocol: Document 09/03/23 14:28 LRN (Rec: 09/03/23 16:15 LRN [id number]) Pelvic Floor Assessment Urine Urinary Symptoms Dribbling After Urination Other Urinary Symptoms Vaginal pain when on period first couple days of period. Standing is painful. Leakage Cause Exercise Other Leakage Causes Exercise jumping. Crosses knees with big sneeze. Bowel Other Bowel Symptoms Variable constipation. Sudden pain in abdomen (upper middle and lower right), after attack has diahrrea. Tagament helps relieve the pain, but then is gaseous. Bowel Movement Frequency 1 or everyother day. Pelvic Clock Pelvic Clock 3-6 Hypertonic Pelvic Clock 6-9 Tenderness Pelvic Clock Other 3-5 tender, 7-8 tender. Prolapse Cystocele Grade 3 Prolapse Comments Uterine drop Perineal Descent Resting Absent Bearing Present SEMG (uV) Quick Contraction 8.8 Contraction Ability Manual Muscle Testing Left 3 Manual Muscle Testing Right 2 Manual Muscle Testing Anterior 3 Manual Muscle Testing Posterior 2 Muscle Endurance (Seconds) 3 Number of Quick Contractions In 10 7 Seconds Comments Pelvic Floor Comments Quick Flicks: 10 reps strength (uV's): avg work 8.8, avg rest 7.7. 20 reps strength (uV's): avg work 8.7, avg rest 7.3. Long Holds: 10 reps strength (uV's): avg work 9.7, avg rest 4.4. 20 reps strength (uV's): avg work 9.1, avg rest 3.6. PT-OP-J Posture/Palpation/Skin Start: 03/18/23 17:50 Freq: Status: Active Protocol: Document 03/26/23 15:07 LRN (Rec: 03/26/23 16:58 LRN [id number]) Posture Evaluation Position Standing T-Spine Posture Flattened L-Spine Posture Increased Lordosis Shoulder Posture Neutral Pelvis Posture Anteriorly Tilted Comments Posture Comments R PSIS is high and slightly posterior, L4-L5 angled left. Palpation Assessment Location Neck pain Palpation Location Cervical paraspinals and bilateral UT's Palpation Findings Soft Tissue Tightness, Tenderness Low Back Palpation Location L4-L5 and sacrum Palpation Details Standing: No tenderness, but location above is where her reported pain is with prolonged standing or before menstration. Prone: Tenderness with PA pressure. PT-OP-K Range of Motion Start: 03/18/23 17:50 Freq: Status: Active Protocol: Document 03/26/23 15:07 LRN (Rec: 03/26/23 16:58 LRN [id number]) Lumbar Spine Range of Motion Lumbar Spine Active Degrees Testing Position Standing Flexion 110 Extension 30 Rotation Left 30 Rotation Right 30 Lateral Flexion Left 25 Lateral Flexion Right 20 Comments Trunk AROM: Flexion is 110 deg?s with 60 deg?s hip flexion, Trunk extension is 30 deg?s with 20 deg?s hip extension. Hip Goniometric Range of Motion Hip Right Passive Testing Position Supine Internal Rotation 40 External Rotation 70 Left Passive Testing Position Supine Internal Rotation 35 External Rotation 70 PT-OP-L Special Tests Start: 03/18/23 17:50 Freq: Status: Active Protocol: Document 03/26/23 15:07 LRN (Rec: 03/26/23 16:58 LRN [id number]) Special Tests Lumbar Spine Special Tests Straight Leg Raise Test Results - bilaterally PT-OP-M Strength Start: 03/18/23 17:50 Freq: Status: Active Protocol: Document 03/26/23 15:07 LRN (Rec: 03/26/23 16:58 LRN [id number]) Trunk Strength Trunk Manual Muscle Testing Core Stabilization Loss of core rotational stability with MMT of hip ext. Hip Strength Hip Manual Muscle Testing Right Comments Strength is 5/5 Left Flexion (L2) 4 Good External Rotation 4+ Good+ Comments Strength is 5/5 except as indicated above PT-OP-T Assessment and Plan Start: 03/18/23 17:50 Freq: Status: Active Protocol: Document 02/07/24 08:41 LRN (Rec: 02/07/24 08:52 LRN [id number]) Physical Therapy Assessment Goals Five Impairment PF/vaginal pain first 2 days of strong flow of period. Aquatic Physiotherapist Goal (LTG) Decrease intensity of vaginal pain first 2 days of period. LTG Duration 8 wks-10/29/23 Four Impairment Low back pain with prolonged standing Short Term Goal (STG) Pt will be able to stabilize her core with MMT of hip extension. STG Duration 4 wks more-10/01/23 Nursing Home Goal (LTG) Reduce back pain with pt able to manage her pain with core stabilization. 06/28/23: LBP hasn't been as bad, hasn't noticed it. Having lateral hip pain (L>R). 07/09/23: Pt reporting LBP is fine. LTG Duration (07/09/23: MET GOAL) Three Impairment Bulge pressure in PF with exercise. Short Term Goal (STG) Education in proper methods for transfer with coordination of breathing. 03/26/23: Pt educated in transfer supine>sit coordinating breathing. 04/16/23: Pt educated in transfers sit<>sup<>stand coordinating breathing. STG Duration (04/16/23: MET GOAL) Aquatic Physiotherapist Goal (LTG) Decrease feeling of bulge and pressure in PF with exercise. 05/04/23: Started period this week, so having pelvic pain. 06/28/23: Hasn't done strenous ex, notices bulge/ pressure during period. 09/03/23: Hasn't done strenous ex, no bulging noted. LTG Duration (09/03/23: MET GOAL) Two Impairment Increased frequency of urination. Impairment Urinary voiding 1-2 more times immediately after voiding throughout the day. Short Term Goal (STG) Decrease frequency that pt needs to void immediately after voiding to 1x/day. 05/04/23: Sometimes has to void immediately after voiding at night. 06/04/23: Voiding every 2 hrs in AM, every hour after 1p, 2 nighttime voids, not immediately after each other. 06/28:24: No longer voiding immediately after voiding. Frequency of urination ~every 1.5 hrs and can sleep through the night. STG Duration 4 wks more-10/01/23 (: Reports goal met for 1st time) Aquatic Physiotherapist Goal (LTG) Decrease freqency of urination to every 2-3 hours. : Frequency of urination ~every 1.5 hrs. Not voiding immediately after voiding. 07/09/23: No change LTG Duration 8 wks-10/29/23 no change since 06/28/23. One Impairment Pt lacks appropriate self care HEP. Short Term Goal (STG) Pt will be educated in proper PF contractions, vulvar/ genital care. 04/16/23: Pt educated in Kegels. 05/04/23: Pt educated in vulvar and genital care. STG Duration (05/04/23: MET GOAL) Nursing Home Goal (LTG) Pt will be independent with a self care HEP of PF/core strengthening and hip ROM exercises. 05/04/23: Issued HEP: [place] stretch to abdomen. 06/04/23: HEP: Hip flexor stretch (laurel test position) LTG Duration 8 wks-10/29/23 progressed Assessment Summary Assessment Pt was being seen for cystocele, rectocele and possible urethrocele, back and neck pain. She was seen for 12 of 24 visits over a 6 month period. She had fair to poor response to therapy due to scheduling difficulties. On the pt called to cancel all remaining appointments. No further therapy is planned, the pt is being discharged from therapy. Physical Therapy Plan Discharge Physical Therapy Discharge Reasons Patient Request Discharge Comments Thank you for your referral.
== END 2024-02-18 09:55 | disposition home or self-care (01) ==
LOC: PHYS 08:15
PROVIDERS: Absent Provider Family Medicine; Family Provider Family Medicine; PCP Family Medicine; Referring Provider Nurse Practitioner Obstetrics & Gynecology; Visit Provider Nurse Practitioner Obstetrics & Gynecology
DX: M54.50 Low back pain, unspecified (principal); N81.10 Cystocele, unspecified; R33.9 Retention of urine, unspecified; M54.2 Cervicalgia
CPT/HCPCS: 97110; 97112; 97140; 97162; 97535

== ENCOUNTER → 2023-10-16 17:33 | Outpatient (CLI) | payer OTHER, MEDICAID, SELFPAY | PROVIDERS: Family Provider Family Medicine; PCP Family Medicine; Visit Provider Physician Assistant | DX: J02.9 Acute pharyngitis, unspecified (principal) | CPT/HCPCS: 87070 ==

== ENCOUNTER → 2023-11-03 11:49 | Outpatient (CLI) | payer OTHER, MEDICAID, SELFPAY ==
[2023-11-03 14:11] LABS: TSH w/ Reflex to FT4 2.02 uIU/mL (0.47-4.68)
[2023-11-03 14:47] LABS: Folate 7.7 ng/mL (2.76-20.0); Vitamin B12 311 pg/mL (239-931)
== END ==
PROVIDERS: Family Provider Family Medicine; PCP Family Medicine; Referring Provider Family Medicine; Visit Provider Family Medicine
DX: E03.9 Hypothyroidism, unspecified (principal); L65.9 Nonscarring hair loss, unspecified; E04.9 Nontoxic goiter, unspecified
CPT/HCPCS: 36415; 82607; 82746; 84443

== ENCOUNTER → 2024-02-22 09:58 | Outpatient (CLI) | payer OTHER, MEDICAID, SELFPAY ==
--- NOTE | 2024-02-22 09:59 | DI.RAD.S_ITS ---
PROCEDURE: XR ANKLE LT MIN 3V INDICATIONS: Left ankle pain TECHNIQUE: 3 views of the ankle were acquired. COMPARISON: None. FINDINGS: Bones: No fractures or dislocations. Ankle mortise is normally aligned. Moderate ankle effusion noted. No suspicious bony lesions. Soft tissues: Moderate soft tissue swelling overlies the lateral malleolus. IMPRESSION: << moderate ankle effusion which is likely posttraumatic could indicate infection or inflammation Dictated by: Sky Medrano M.D. on 02/23/2024 at 15:05 Approved by: Sky Medrano M.D. on 02/23/2024 at 15:08
== END ==
PROVIDERS: Family Provider Family Medicine; PCP Family Medicine; Referring Provider Nurse Practitioner Family; Visit Provider Nurse Practitioner Family
DX: M25.572 Pain in left ankle and joints of left foot (principal); M25.472 Effusion, left ankle
CPT/HCPCS: 73610

== ENCOUNTER → 2024-09-01 21:03 | Outpatient (ROUT) | payer SELFPAY ==
[2024-09-05 00:07] LABS: Atopobium vaginae Low - 0 Score (.); Bact Vaginosis-Assoc. bacteria Low - 0 Score (.); Candida albicans, NAA Negative (Negative); Candida glabrata Negative (Negative); Chlamydia trachomatis Negative (Negative); Megasphaera 1 Low - 0 Score (.); Neisseria gonorrhoeae Negative (Negative); Trichomoas vaginalis by NAA Negative (Negative)
== END ==
LOC: LAB 21:04
PROVIDERS: Family Provider Family Medicine; PCP Family Medicine; Visit Provider Advanced Practice Midwife
DX: N89.9 Noninflammatory disorder of vagina, unspecified (principal); R35.0 Frequency of micturition; X08 Exposure to other specified smoke, fire and flames
CPT/HCPCS: 87086; 87480; 87491; 87510; 87591; 87798; 87801

== ENCOUNTER → 2024-12-19 11:51 | Outpatient (CLI) | payer OTHER, SELFPAY ==
[2024-12-19 12:29] LABS: Add Manual Diff / Slide Review NO; Hematocrit 34.9 % (36-46); Hemoglobin 11.7 g/dL (12.0-16.0); Lymphocytes Absolute Auto 1400 /uL (1100-4500); Mean Corpuscular HGB Conc 33.6 % (30-36); Mean Corpuscular Hemoglobin 27.1 PG (26-34); Mean Corpuscular Volume 80.7 fL (80-100); Platelet Count 205 X10^3/uL (150-400)
[2024-12-19 13:18] LABS: HEMOLYSIS < 15 (0-50); Iron 69 ug/dL (37-170)
[2024-12-19 13:19] LABS: Alanine Aminotransferase 14 IU/L (<35); Albumin 4.6 g/dL (3.5-5.0); Albumin Globulin Ratio 1.5 (1.0-2.8); Alkaline Phosphatase 38 U/L (38-126); Blood Urea Nitrogen 12 mg/dL (7-17); Calcium 9.5 mg/dL (8.4-10.2); Carbon Dioxide 26 mmol/L (22-32); Chloride 105 mmol/L (98-107); Estimated Glomerular Filt Rate > 60 mL/min (>60); Globulin 3.0 g/dL (1.7-4.1); Glucose 94 mg/dL (70-99); HEMOLYSIS < 15 (0-50); Potassium 4.3 mmol/L (3.4-5.1); Sodium 138 mmol/L (137-145); Total Protein 7.6 g/dL (6.3-8.2)
[2024-12-19 13:29] LABS: Percent Iron Saturation 17 % (15-50); Total Iron Binding Capacity 409 ug/dL (265-497); Transferrin 339 mg/dL (206-381)
[2024-12-19 13:51] LABS: TSH w/ Reflex to FT4 5.02 uIU/mL (0.47-4.68)
[2024-12-19 14:11] LABS: Vitamin B12 395 pg/mL (239-931)
[2024-12-19 14:36] LABS: Free T4, Direct Thyroxine 1.16 ng/dL (0.78-2.19)
== END ==
PROVIDERS: Family Provider Family Medicine; PCP Family Medicine; Referring Provider Physician Assistant; Visit Provider Physician Assistant
DX: E03.9 Hypothyroidism, unspecified (principal); N92.6 Irregular menstruation, unspecified; R53.83 Other fatigue
CPT/HCPCS: 36415; 80053; 82607; 83540; 83550; 84439; 84443; 85025

== ENCOUNTER → 2025-05-23 15:05 | Outpatient (CLI) | payer OTHER, SELFPAY ==
[2025-05-23 15:55] LABS: Influenza A - CEPHEID Flu A NEGATIVE (NEGATIVE); Influenza B - CEPHEID Flu B NEGATIVE (NEGATIVE)
[2025-05-23 15:57] LABS: COVID-19 CEPHEID 4-PLEX PCR Negative (Negative)
== END ==
PROVIDERS: Family Provider Family Medicine; PCP Family Medicine; Visit Provider Nurse Practitioner Family
DX: J02.9 Acute pharyngitis, unspecified (principal); R05.1 Acute cough
CPT/HCPCS: 87070; 87637